=== PATIENT | female | born 1940 | race African-American/Black ===

== ENCOUNTER 2022-02-25 19:04 | Inpatient (IN) | payer OTHER ==
[~2022-02-25] VITALS: Ht 167.6 cm; Wt 134.7 kg
[2022-02-25] MEDS ORDERED: IV NS 0.9% 1,000 ML BAG IV ONE (19:30)
[2022-02-25 19:54] LABS: BASOPHILS % (AUTO) 0.2 % (0.0-2.0); HEMATOCRIT 34 % (33-45); HEMOGLOBIN 10.8 g/dL (11.5-14.8); LYMPHOCYTES # (AUTO) 0.7 K/uL (0.8-4.8); LYMPHOCYTES % (AUTO) 4.5 % (20.0-44.0); MEAN CORPUSCULAR HGB CONC 32 g/dl (31.0-36.0); MEAN CORPUSCULAR VOLUME 94 fL (82-100); MONOCYTES # (AUTO) 1.1 K/uL (0.1-1.30); MONOCYTES % (AUTO) 7.5 % (2.0-12.0); NEUTROPHILS # (AUTO) 12.7 K/uL (1.8-8.9); NEUTROPHILS % (AUTO) 87.8 % (43.0-81.0); PLATELET COUNT (AUTO) 339 K/uL (150-450); RED BLOOD CELL COUNT(AUTO) 3.59 MIL/uL (4.0-5.2); WHITE BLOOD COUNT (AUTO) 14.5 K/uL (4.3-11.0)
[2022-02-25 19:58] LABS: CALCIUM, SERUM 9.3 mg/dL (8.5-10.1); CARBON DIOXIDE 27 mmol/L (21-32); CHLORIDE 89 mmol/L (98-107); GLUCOSE 232 mg/dL (74-106); POTASSIUM 3.9 mmol/L (3.5-5.1); SODIUM SERUM 128 mmol/L (136-145); UREA NITROGEN, BLOOD 26 mg/dL (7-18)
[2022-02-25 19:59] LABS: SERUM AMMONIA 11 umol/L (11-32)
[2022-02-25 20:12] LABS: ALANINE AMINOTRANSFERASE 13 U/L (12-78); ALKALINE PHOSPHATASE 72 U/L (46-116); ASPARTATE AMINOTRANSFERASE 19 U/L (15-37); BILIRUBIN,DIRECT 0.1 mg/dL (0.0-0.2); BILIRUBIN,TOTAL 0.3 mg/dL (0.2-1.0); TOTAL PROTEIN, SERUM 8.2 g/dL (6.4-8.2)
[2022-02-25 20:13] LABS: ALCOHOL, BLOOD < 3 mg/dL (0-0)
[2022-02-25 20:14] LABS: THYROID STIMULATING HORMONE 1.714 uIU/mL (0.358-3.74)
[2022-02-25] MEDS ORDERED: VANCOMYCIN 1 GM VIAL ONE (20:30)
[2022-02-25] MEDS ORDERED: PIPERACILLIN /TAZOBACTAM 3.375 G VIAL IV ONE (20:30)
[2022-02-25] MEDS ORDERED: PIPERACILLIN /TAZOBACTAM 3.375 G in IV D5W 50 ML IV ONE (20:30)
[2022-02-25] MEDS ORDERED: VANCOMYCIN 1 GM in IV D5W 250 ML IV ONE (20:30)
[2022-02-25] MEDS ORDERED: ONDANSETRON HCL/PF 4 MG/2 ML VIAL IVP PRN (21:00)
[2022-02-25] MEDS ORDERED: Z GUARD REMEDY 4 OZ OINT TP PRN (21:00)
[2022-02-25] MEDS ORDERED: ACETAMINOPHEN 650 MG/SUPP.RECT RC PRN (21:00)
[2022-02-25 21:30] LABS: BILIRUBIN,URINE NEGATIVE (NEGATIVE); COLOR,URINE YELLOW (YELLOW); LEUKOCYTE ESTERASE ,URINE MODERATE (NEGATIVE); NITRITE, URINE NEGATIVE (NEGATIVE); PH,URINE 7.5 (5.0-8.0); PROTEIN,URINE 100 mg/dl (NEGATIVE); UGLUCOSE NEGATIVE (NEGATIVE); UROBILINOGEN,URINE 0.2 EU/dL (0.2)
[2022-02-25] MEDS ORDERED: HEPARIN INFUSION/D5W 500 ML IV ONE ×2 (21:30→21:58)
[2022-02-25 22:14] LABS: BACTERIA,URINE Moderate /HPF (None Seen); SQUAMOUS EPITHELIAL CELL,UR Few /HPF (None Seen); WBC,URINE 21-50 /HPF (0-3)
[2022-02-26] VITALS: BP 108/86
[2022-02-26] MEDS ORDERED: PIPERACILLIN /TAZOBACTAM 2.25 G VIAL IV ONE (03:12)
[2022-02-26 04:00] VITALS: BP 113/55
[2022-02-26] MEDS ORDERED: PIPERACILLIN /TAZOBACTAM 2.25 G in IV D5W 50 ML IV ONE (04:00)
[2022-02-26 07:54] LABS: BASOPHILS % (AUTO) 0.2 % (0.0-2.0); EOSINOPHILS % (AUTO) 0.4 % (0.0-6.0); HEMATOCRIT 30 % (33-45); HEMOGLOBIN 9.6 g/dL (11.5-14.8); LYMPHOCYTES # (AUTO) 1.1 K/uL (0.8-4.8); LYMPHOCYTES % (AUTO) 9.5 % (20.0-44.0); MEAN CORPUSCULAR HGB CONC 32 g/dl (31.0-36.0); MEAN CORPUSCULAR VOLUME 95 fL (82-100); MONOCYTES # (AUTO) 1.4 K/uL (0.1-1.30); NEUTROPHILS # (AUTO) 8.9 K/uL (1.8-8.9); NEUTROPHILS % (AUTO) 77.9 % (43.0-81.0); PLATELET COUNT (AUTO) 269 K/uL (150-450); RED BLOOD CELL COUNT(AUTO) 3.22 MIL/uL (4.0-5.2); WHITE BLOOD COUNT (AUTO) 11.4 K/uL (4.3-11.0)
[2022-02-26 08:00] VITALS: BP 117/43
[2022-02-26] MEDS ORDERED: VANCOMYCIN POST DIALYSIS 500MG IV PRN ×2 (08:00)
[2022-02-26] MEDS: HEPARIN INFUSION/D5W 500 ML IV PRN (08:18)
[2022-02-26] MEDS ORDERED: LINA72CA PO (08:22)
[2022-02-26] MEDS ORDERED: CLOP75TA15 PO (08:22)
[2022-02-26] MEDS ORDERED: LEVO137T24 PO (08:22)
[2022-02-26] MEDS ORDERED: ALLO100T PO (08:22)
[2022-02-26] MEDS ORDERED: ATOR10TA PO (08:22)
[2022-02-26] MEDS ORDERED: GABA-532 PO (08:22)
[2022-02-26] MEDS ORDERED: DOCU-141 PO (08:22)
[2022-02-26] MEDS ORDERED: INSU100V10 SQ (08:22)
[2022-02-26] MEDS ORDERED: SEVE800T8 PO (08:22)
[2022-02-26] MEDS ORDERED: POLY17PO4 PO (08:22)
[2022-02-26] MEDS ORDERED: SENN-261 PO (08:22)
[2022-02-26] MEDS ORDERED: METO25TA4 PO (08:22)
[2022-02-26] MEDS ORDERED: INSU100V30 IJ (08:22)
[2022-02-26 08:43] LABS: CARBON DIOXIDE 22 mmol/L (21-32); CHLORIDE 91 mmol/L (98-107); CREATININE 4.2 mg/dL (0.6-1.3); GLUCOSE 277 mg/dL (74-106); MAGNESIUM 2.2 mg/dL (1.8-2.4); POTASSIUM 3.3 mmol/L (3.5-5.1); SODIUM SERUM 129 mmol/L (136-145); UREA NITROGEN, BLOOD 30 mg/dL (7-18)
[2022-02-26] MEDS: PANTOPRAZOLE 40 MG VIAL IV SCH (08:55)
[2022-02-26 12:00] VITALS: BP 118/83
[2022-02-26 12:19] LABS: IRON, SERUM 16 ug/dl (50-175); TOTAL IRON BINDING CAPACITY 145 ug/dl (250-450)
[2022-02-26 13:15] LABS: THYROID STIMULATING HORMONE 1.036 uIU/mL (0.358-3.74)
[2022-02-26] MEDS: PIPERACILLIN /TAZOBACTAM 2.25 G in IV D5W 50 ML IV SCH ×2 (13:37→20:47)
[2022-02-26] MEDS ORDERED: EPOETIN ALFA-EPBX 10,000 UNIT/ML VIAL IV ONE (15:00)
[2022-02-26] MEDS: SOD FERRIC GLUC 125 MG in IV NS 0.9% 100 ML IV SCH (15:45)
[2022-02-26 16:00] VITALS: BP 161/60
[2022-02-26 20:00] VITALS: BP 134/93
[2022-02-26] MEDS: MUPIROCIN OINT 2% 22 GM TUBE NS SCH (20:47)
[2022-02-27] VITALS: BP 130/72
[2022-02-27] MEDS: HEPARIN INFUSION/D5W 500 ML IV PRN ×2 (01:50→22:48)
[2022-02-27] MEDS: PIPERACILLIN /TAZOBACTAM 2.25 G in IV D5W 50 ML IV SCH (05:17)
[2022-02-27 08:55] VITALS: BP 130/72
[2022-02-27 08:56] VITALS: BP 132/48
[2022-02-27] MEDS: PANTOPRAZOLE 40 MG VIAL IV SCH (09:32)
[2022-02-27] MEDS: MUPIROCIN OINT 2% 22 GM TUBE NS SCH ×2 (09:32→21:29)
[2022-02-27 12:00] VITALS: BP 149/76
[2022-02-27] MEDS ORDERED: CEFEPIME 1 GM in IV D5W 50 ML IV SCH (14:00)
[2022-02-27 16:00] VITALS: BP 121/52
[2022-02-27] MEDS: SOD FERRIC GLUC 125 MG in IV NS 0.9% 100 ML IV SCH (16:11)
[2022-02-27 20:00] VITALS: BP 124/58
[2022-02-27] MEDS: ATORVASTATIN 10 MG TABLET PO SCH (21:29)
[2022-02-27] MEDS ORDERED: HEPARIN INFUSION/D5W 500 ML IV ONE (22:44)
[2022-02-28] VITALS: BP 119/61
[2022-02-28 04:00] VITALS: BP 121/68
[2022-02-28 08:00] VITALS: BP 130/52
[2022-02-28] MEDS: LEVOTHYROXINE SODIUM 50 MCG TABLET PO SCH (08:21)
[2022-02-28] MEDS: PANTOPRAZOLE 40 MG VIAL IV SCH (08:59)
[2022-02-28] MEDS ORDERED: CLOPIDOGREL BISULFATE 75 MG TABLET PO SCH (09:00)
[2022-02-28] MEDS: POLYETHYLENE GLYCOL 3350 17 GM POWD.PACK PO SCH (09:00)
[2022-02-28] MEDS: EPOETIN ALFA-EPBX 10,000 UNIT/ML VIAL IV ONE ×2 (09:00→09:17)
[2022-02-28] MEDS: SENNOSIDES 8.6 MG TABLET PO SCH ×2 (09:00→17:00)
[2022-02-28] MEDS: ALLOPURINOL 100 MG TABLET PO SCH (09:00)
[2022-02-28] MEDS: METOPROLOL SUCCINATE 25 MG TAB.SR.24H PO SCH (09:01)
[2022-02-28] MEDS: GABAPENTIN 100 MG CAPSULE PO SCH ×3 (09:30→17:14)
[2022-02-28] MEDS: DOCUSATE SODIUM 100 MG CAPSULE PO SCH ×2 (09:30→17:14)
[2022-02-28] MEDS: MUPIROCIN OINT 2% 22 GM TUBE NS SCH ×2 (11:27→21:25)
[2022-02-28 12:00] VITALS: BP 106/42
[2022-02-28 12:15] LABS: BASOPHILS # (AUTO) 0.1 K/uL (0.0-0.2); BASOPHILS % (AUTO) 0.5 % (0.0-2.0); EOSINOPHILS % (AUTO) 1.6 % (0.0-6.0); HEMATOCRIT 25 % (33-45); HEMOGLOBIN 8.2 g/dL (11.5-14.8); LYMPHOCYTES # (AUTO) 0.9 K/uL (0.8-4.8); LYMPHOCYTES % (AUTO) 6.9 % (20.0-44.0); MEAN CORPUSCULAR HGB CONC 32 g/dl (31.0-36.0); MEAN CORPUSCULAR VOLUME 93 fL (82-100); MONOCYTES # (AUTO) 1.5 K/uL (0.1-1.30); MONOCYTES % (AUTO) 11.8 % (2.0-12.0); NEUTROPHILS % (AUTO) 79.2 % (43.0-81.0); PLATELET COUNT (AUTO) 238 K/uL (150-450); RED BLOOD CELL COUNT(AUTO) 2.74 MIL/uL (4.0-5.2); WHITE BLOOD COUNT (AUTO) 12.6 K/uL (4.3-11.0)
[2022-02-28 12:23] LABS: CALCIUM, SERUM 8.8 mg/dL (8.5-10.1); CARBON DIOXIDE 28 mmol/L (21-32); CHLORIDE 95 mmol/L (98-107); CREATININE 4.8 mg/dL (0.6-1.3); GLUCOSE 313 mg/dL (74-106); SODIUM SERUM 132 mmol/L (136-145); UREA NITROGEN, BLOOD 32 mg/dL (7-18)
[2022-02-28 12:29] LABS: ALANINE AMINOTRANSFERASE 16 U/L (12-78); ALBUMIN 2.1 g/dL (3.4-5.0); ALKALINE PHOSPHATASE 61 U/L (46-116); ASPARTATE AMINOTRANSFERASE 13 U/L (15-37); BILIRUBIN,TOTAL 0.2 mg/dL (0.2-1.0); MAGNESIUM 2.1 mg/dL (1.8-2.4); PHOSPHORUS 4.1 mg/dL (2.5-4.9)
[2022-02-28] MEDS: LEVOFLOXACIN (250MG) 250 MG TABLET PO SCH (12:35)
[2022-02-28] MEDS: SOD FERRIC GLUC 125 MG in IV NS 0.9% 100 ML IV SCH (14:14)
[2022-02-28 16:00] VITALS: BP 174/66
[2022-02-28] MEDS: CLOPIDOGREL BISULFATE 75 MG TABLET PO SCH (17:14)
[2022-02-28 20:00] VITALS: BP 142/42
[2022-02-28] MEDS ORDERED: diphenhydrAMINE HCL 25 MG CAPSULE PO ONE (20:30)
[2022-02-28] MEDS: ACETAMINOPHEN 325 MG TABLET PO PRN (20:45)
[2022-02-28] MEDS: ATORVASTATIN 10 MG TABLET PO SCH (21:52)
[2022-03-01] VITALS: BP 148/45
[2022-03-01 04:00] VITALS: BP 124/40
[2022-03-01 06:39] LABS: BASOPHILS % (AUTO) 0.3 % (0.0-2.0); EOSINOPHILS % (AUTO) 2.5 % (0.0-6.0); HEMATOCRIT 26 % (33-45); HEMOGLOBIN 8.3 g/dL (11.5-14.8); LYMPHOCYTES # (AUTO) 1.1 K/uL (0.8-4.8); LYMPHOCYTES % (AUTO) 8.3 % (20.0-44.0); MEAN CORPUSCULAR HGB CONC 32 g/dl (31.0-36.0); MEAN CORPUSCULAR VOLUME 93 fL (82-100); MONOCYTES # (AUTO) 1.5 K/uL (0.1-1.30); NEUTROPHILS # (AUTO) 10.2 K/uL (1.8-8.9); NEUTROPHILS % (AUTO) 77.9 % (43.0-81.0); PLATELET COUNT (AUTO) 267 K/uL (150-450); RED BLOOD CELL COUNT(AUTO) 2.78 MIL/uL (4.0-5.2); WHITE BLOOD COUNT (AUTO) 13.2 K/uL (4.3-11.0)
[2022-03-01 06:57] LABS: CALCIUM, SERUM 9.1 mg/dL (8.5-10.1); CARBON DIOXIDE 27 mmol/L (21-32); CHLORIDE 96 mmol/L (98-107); CREATININE 5.1 mg/dL (0.6-1.3); GLUCOSE 180 mg/dL (74-106); PHOSPHORUS 4.3 mg/dL (2.5-4.9); POTASSIUM 3.2 mmol/L (3.5-5.1); SODIUM SERUM 134 mmol/L (136-145); UREA NITROGEN, BLOOD 38 mg/dL (7-18)
[2022-03-01 08:00] VITALS: BP 173/57
[2022-03-01] MEDS: LEVOTHYROXINE SODIUM 50 MCG TABLET PO SCH (08:25)
[2022-03-01] MEDS: CLOPIDOGREL BISULFATE 75 MG TABLET PO SCH (08:25)
[2022-03-01] MEDS: PANTOPRAZOLE 40 MG/PACK PACK PO SCH (08:25)
[2022-03-01] MEDS: SENNOSIDES 8.6 MG TABLET PO SCH ×2 (08:25→17:04)
[2022-03-01] MEDS: DOCUSATE SODIUM 100 MG CAPSULE PO SCH ×2 (08:25→17:03)
[2022-03-01] MEDS: GABAPENTIN 100 MG CAPSULE PO SCH ×3 (08:26→17:05)
[2022-03-01] MEDS: POLYETHYLENE GLYCOL 3350 17 GM POWD.PACK PO SCH (08:26)
[2022-03-01] MEDS: METOPROLOL SUCCINATE 25 MG TAB.SR.24H PO SCH (08:26)
[2022-03-01] MEDS: ALLOPURINOL 100 MG TABLET PO SCH (08:26)
[2022-03-01] MEDS: MUPIROCIN OINT 2% 22 GM TUBE NS SCH ×2 (08:27→21:31)
[2022-03-01] MEDS ORDERED: NITROGLYCERIN 0.4 MG/TAB BOTTLE ONE (11:18)
[2022-03-01] MEDS ORDERED: CT SWABBABLE VALVE TRANS SET 1 EA INFUS.SET MC ONE (11:18)
[2022-03-01] MEDS ORDERED: METOPROLOL TARTRATE INJ 5 MG/5 ML AMPUL ONE ×2 (11:18→11:45)
[2022-03-01] MEDS ORDERED: IV NS 0.9% 250 ML IV ONE (11:18)
[2022-03-01] MEDS ORDERED: IOHEXOL-350 100 ML VIAL IV ONE (11:18)
[2022-03-01] MEDS ORDERED: NITROGLYCERIN 0.4 MG/TAB BOTTLE SL PRN (11:30)
[2022-03-01] MEDS: METOPROLOL TARTRATE INJ 5 MG/5 ML AMPUL IVP PRN ×3 (11:35→11:45)
[2022-03-01] MEDS ORDERED: SOD FERRIC GLUC 62.5 MG/5 ML AMPUL IV ONE (15:00)
[2022-03-01] MEDS: SOD FERRIC GLUC 125 MG in IV NS 0.9% 100 ML IV SCH (15:33)
[2022-03-01 16:00] VITALS: BP 171/61
[2022-03-01 20:00] VITALS: BP 110/88
[2022-03-01] MEDS: ATORVASTATIN 10 MG TABLET PO SCH (21:31)
[2022-03-02] VITALS: BP 124/59
[2022-03-02] MEDS ORDERED: diphenhydrAMINE HCL 25 MG CAPSULE PO ONE (01:00)
[2022-03-02] MEDS ORDERED: GUAIFENESIN LA 600 MG TABLET.SA PO PRN (01:00)
[2022-03-02] MEDS: ACETAMINOPHEN 325 MG TABLET PO PRN (01:30)
[2022-03-02] MEDS ORDERED: TRAZODONE 50 MG TABLET PO PRN ×2 (02:30→22:00)
[2022-03-02 04:00] VITALS: BP 146/78
[2022-03-02 08:00] VITALS: BP 171/54
[2022-03-02] MEDS: CLOPIDOGREL BISULFATE 75 MG TABLET PO SCH (08:23)
[2022-03-02] MEDS: ALLOPURINOL 100 MG TABLET PO SCH (08:23)
[2022-03-02] MEDS: DOCUSATE SODIUM 100 MG CAPSULE PO SCH ×2 (08:23→17:13)
[2022-03-02] MEDS: GABAPENTIN 100 MG CAPSULE PO SCH ×3 (08:23→17:14)
[2022-03-02] MEDS: PANTOPRAZOLE 40 MG/PACK PACK PO SCH (08:23)
[2022-03-02] MEDS: LEVOTHYROXINE SODIUM 50 MCG TABLET PO SCH (08:23)
[2022-03-02] MEDS: MUPIROCIN OINT 2% 22 GM TUBE NS SCH (08:24)
[2022-03-02] MEDS: POLYETHYLENE GLYCOL 3350 17 GM POWD.PACK PO SCH (08:24)
[2022-03-02] MEDS: SENNOSIDES 8.6 MG TABLET PO SCH ×2 (08:24→17:13)
[2022-03-02] MEDS: METOPROLOL SUCCINATE 25 MG TAB.SR.24H PO SCH (08:25)
[2022-03-02] MEDS ORDERED: METOPROLOL SUCCINATE 25 MG TAB.SR.24H PO SCH (09:00)
[2022-03-02] MEDS: hydrALAZINE HCL 50 MG TABLET PO SCH ×3 (09:53→17:14)
[2022-03-02] MEDS: ISOSORBIDE DINITRATE (20MG) 20 MG TABLET PO SCH ×2 (09:54→17:14)
[2022-03-02 12:00] VITALS: BP 126/62
[2022-03-02] MEDS: LEVOFLOXACIN (250MG) 250 MG TABLET PO SCH (13:13)
[2022-03-02] MEDS: SOD FERRIC GLUC 125 MG in IV NS 0.9% 100 ML IV SCH (14:00)
[2022-03-02 16:00] VITALS: BP 151/54
[2022-03-02 17:14] VITALS: BP 151/54
== END 2022-03-02 19:30 | DRG 871 ==
LOC: ER 19:05 → TELE1 21:50 → TRANSITION 02-26 01:09 → TELE1 02-26 01:10
PROVIDERS: ADMIT Nurse Practitioner Family
PROC: 5A1D70Z Performance of Urinary Filtration, Intermittent, Less than 6 Hours Per Day (ICD-10-PCS; 2022-02-26)
PROC: 05HB33Z Insertion of Infusion Device into Right Basilic Vein, Percutaneous Approach (ICD-10-PCS; principal; 2022-02-27)
DX: A41.1 Sepsis due to other specified staphylococcus (principal); G92.8 Other toxic encephalopathy; I21.4 Non-ST elevation (NSTEMI) myocardial infarction; N18.6 End stage renal disease; J18.9 Pneumonia, unspecified organism; R65.21 Severe sepsis with septic shock; N39.0 Urinary tract infection, site not specified; E87.1 Hypo-osmolality and hyponatremia; I13.2 Hypertensive heart and chronic kidney disease with heart failure and with stage 5 chronic kidney disease, or end stage renal disease; E87.2 Acidosis; Z68.42 Body mass index [BMI] 45.0-49.9, adult; J96.10 Chronic respiratory failure, unspecified whether with hypoxia or hypercapnia; E11.42 Type 2 diabetes mellitus with diabetic polyneuropathy; E11.22 Type 2 diabetes mellitus with diabetic chronic kidney disease; Z20.822 Contact with and (suspected) exposure to COVID-19; E11.65 Type 2 diabetes mellitus with hyperglycemia; I25.10 Atherosclerotic heart disease of native coronary artery without angina pectoris; Z99.2 Dependence on renal dialysis; G47.33 Obstructive sleep apnea (adult) (pediatric); E78.5 Hyperlipidemia, unspecified; E66.01 Morbid (severe) obesity due to excess calories; B96.89 Other specified bacterial agents as the cause of diseases classified elsewhere; Z74.01 Bed confinement status; Y95 Nosocomial condition; D63.8 Anemia in other chronic diseases classified elsewhere; B96.4 Proteus (mirabilis) (morganii) as the cause of diseases classified elsewhere; I50.9 Heart failure, unspecified; Z86.73 Personal history of transient ischemic attack (TIA), and cerebral infarction without residual deficits; E03.9 Hypothyroidism, unspecified; J32.0 Chronic maxillary sinusitis; G93.89 Other specified disorders of brain; E61.1 Iron deficiency; M10.9 Gout, unspecified
CPT/HCPCS: 36410; 36415; 70450-TC; 71045-TC; 75574; 80048-TC; 80053-TC; 80076-TC; 80202-TC; 81001; 82140-TC; 82728-TC; 82962-TC; 83540-TC; 83605-TC; 83735-TC; 84100-TC; 84443-TC; 84484-TC; 85025-TC; 85730-TC; 86706; 87040-TC; 87081-TC; 87086-TC; 87186-TC; 87340; 90935-TC; 92526; 92611-TC; 93307-TC; 94799-TC; C9113; C9803; G0378; G0480; J0692; J0885; J1644; J2543; J2916; J3370; J3490; J7030; J7050; J7060; Q0163; Q9967

== ENCOUNTER 2022-11-16 15:58 | Inpatient (IN) | payer OTHER ==
[~2022-11-16] VITALS: Ht 160 cm; Wt 126.6 kg
[~2022-11-16 15:58] MED LIST: ALLO100T PO; ATOR10TA PO; CLOP75TA15 PO; DOCU-141 PO; GABA-532 PO; INSU100V10 SQ; INSU100V30 IJ; LEVO137T24 PO; LINA72CA PO; METO25TA4 PO; POLY17PO4 PO; SENN-261 PO; SEVE800T8 PO
--- NOTE | 2022-11-16 16:10 | NUR ---
BIBA RA60 Fm [employer] "IFT for partial occlussion Right Femoral artery BS-217. PLACED IN BED, AAOX3, BREATHING EVEN AND UNLABORED SATURATING AT 94%RA.
[2022-11-16] MEDS ORDERED: ASCO500T10 PO (16:24)
--- NOTE | 2022-11-16 16:32 | NUR ---
MOVE SHEET SUBMITTED.
--- NOTE | 2022-11-16 16:32 | NUR ---
BLOOD DRAWN AND SENT TO LAB
[2022-11-16 16:35] LABS: BASOPHILS # (AUTO) 0.1 K/uL (0.0-0.2); BASOPHILS % (AUTO) 0.9 % (0.0-2.0); EOSINOPHILS % (AUTO) 3.1 % (0.0-6.0); HEMATOCRIT 30 % (33-45); HEMOGLOBIN 9.9 g/dL (11.5-14.8); LYMPHOCYTES # (AUTO) 1.3 K/uL (0.8-4.8); LYMPHOCYTES % (AUTO) 14.4 % (20.0-44.0); MEAN CORPUSCULAR HGB CONC 33 g/dl (31.0-36.0); MEAN CORPUSCULAR VOLUME 94 fL (82-100); MONOCYTES # (AUTO) 1.1 K/uL (0.1-1.30); MONOCYTES % (AUTO) 12.4 % (2.0-12.0); NEUTROPHILS # (AUTO) 6.3 K/uL (1.8-8.9); NEUTROPHILS % (AUTO) 69.2 % (43.0-81.0); PLATELET COUNT (AUTO) 322 K/uL (150-450); WHITE BLOOD COUNT (AUTO) 9.2 K/uL (4.3-11.0)
--- NOTE | 2022-11-16 16:37 | NUR ---
SWAB FOR COVID19 SENT TO LAB
[2022-11-16] MEDS ORDERED: HEPA50007 SQ (16:53)
[2022-11-16] MEDS ORDERED: ACET-2605 PO (16:53)
[2022-11-16] MEDS ORDERED: INSU100V11 SQ (16:53)
[2022-11-16] MEDS ORDERED: FAMO20TA8 PO (16:53)
[2022-11-16] MEDS ORDERED: LIDO30AD10 TP (16:53)
[2022-11-16] MEDS ORDERED: NA P133E RC (16:53)
[2022-11-16] MEDS ORDERED: MAGN400O6 PO (16:53)
[2022-11-16] MEDS ORDERED: AMIN30LI2 PO (16:53)
[2022-11-16] MEDS ORDERED: INSU100V7 SQ (16:53)
[2022-11-16] MEDS ORDERED: NORT10CA PO (16:53)
[2022-11-16] MEDS ORDERED: ZINC1CAP2 PO (16:53)
[2022-11-16] MEDS ORDERED: ASPI-1169 PO (16:53)
[2022-11-16] MEDS ORDERED: ACET325T53 PO ×2 (16:53)
[2022-11-16] MEDS ORDERED: ISOS40TA19 PO (16:53)
[2022-11-16] MEDS ORDERED: METO50TA16 PO (16:53)
[2022-11-16] MEDS ORDERED: HYDR-4303 PO (16:53)
[2022-11-16] MEDS ORDERED: FOLI0.8T2 PO (16:53)
[2022-11-16] MEDS ORDERED: FERR325T23 PO (16:53)
[2022-11-16] MEDS ORDERED: BISA10SU61 RC (16:53)
[2022-11-16] MEDS ORDERED: HYDR-4076 PO (16:53)
[2022-11-16] MEDS ORDERED: LEVE500T9 PO (16:53)
[2022-11-16 16:58] LABS: CALCIUM, SERUM 9.5 mg/dL (8.5-10.1); CARBON DIOXIDE 30 mmol/L (21-32); CHLORIDE 92 mmol/L (98-107); GLUCOSE 140 mg/dL (74-106); POTASSIUM 5.6 mmol/L (3.5-5.1); SODIUM SERUM 128 mmol/L (136-145); UREA NITROGEN, BLOOD 29 mg/dL (7-18)
[2022-11-16 17:03] LABS: ALANINE AMINOTRANSFERASE 12 U/L (12-78); ALBUMIN 2.6 g/dL (3.4-5.0); ALKALINE PHOSPHATASE 61 U/L (46-116); ASPARTATE AMINOTRANSFERASE 15 U/L (15-37); BILIRUBIN,DIRECT 0.1 mg/dL (0.0-0.2); BILIRUBIN,TOTAL 0.2 mg/dL (0.2-1.0); TOTAL PROTEIN, SERUM 7.7 g/dL (6.4-8.2)
[2022-11-16] MEDS ORDERED: ACETAMINOPHEN 325 MG TABLET PO PRN ×2 (18:30)
[2022-11-16] MEDS ORDERED: MAGNESIUM HYDROXIDE 30 ML UDC PO PRN ×2 (18:30)
[2022-11-16] MEDS ORDERED: Z GUARD REMEDY 4 OZ OINT TP PRN (18:30)
[2022-11-16] MEDS ORDERED: LIDOCAINE 5% (PATCH) 1 EA PATCH TP PRN (18:30)
[2022-11-16] MEDS ORDERED: MAG HYDROX/AL HYDROX/SIMETH 30 ML UDC PO PRN (18:30)
[2022-11-16] MEDS ORDERED: ZOLPIDEM TARTRATE 5 MG TABLET PO PRN (18:30)
[2022-11-16] MEDS ORDERED: ONDANSETRON HCL/PF 4 MG/2 ML VIAL IVP PRN (18:30)
[2022-11-16] MEDS ORDERED: BISACODYL SUPP (10 MG) 10 MG/SUPP.RECT SUPP.RECT RC PRN (18:30)
[2022-11-16] MEDS ORDERED: ACETAMINOPHEN ES 500 MG TABLET PO PRN (18:30)
[2022-11-16] MEDS ORDERED: DEXTROSE 50%-WATER 50 ML DISP.SYRIN IV PRN (18:30)
[2022-11-16] MEDS ORDERED: NA PHOS,M-B/NA PHOS,DI-BA 1 EA ENEMA RC PRN (18:30)
--- NOTE | 2022-11-16 20:40 | NUR ---
fax [facility]s [phone]
--- NOTE | 2022-11-16 21:45 | NUR ---
[facility]ET [facility] CLINIC[facility] RE-FAXED.
[2022-11-16] MEDS ORDERED: LORAZEPAM INJ 2 MG/ML VIAL ONE (22:46)
[2022-11-16] MEDS ORDERED: LORAZEPAM INJ 2 MG/ML VIAL IV ONE (23:00)
--- NOTE | 2022-11-17 02:20 | NUR ---
auth number [id number]
--- NOTE | 2022-11-17 02:23 | NUR ---
[facility]
--- NOTE | 2022-11-17 02:44 | NUR ---
report given to eccilio bryant for chetna
[2022-11-17] MEDS: BLOOD SUGAR DIAGNOSTIC 1 EACH STRIP VI SCH ×5 (03:35→21:20)
[2022-11-17] MEDS: INSULIN GLARGINE, 100 UNIT/ML CARTRIDGE SQ SCH ×2 (03:48→21:20)
[2022-11-17] MEDS: NORTRIPTYLINE HCL 10 MG CAPSULE PO SCH ×2 (03:49→21:16)
[2022-11-17] MEDS: SENNOSIDES 8.6 MG TABLET PO SCH ×2 (03:49→21:16)
[2022-11-17] MEDS: ATORVASTATIN 10 MG TABLET PO SCH ×2 (03:49→21:16)
--- NOTE | 2022-11-17 03:50 | NUR ---
RN NOTE PT ARRIVED IN THE UNIT @ 0300 AND BY THAT TIME, ALL HER NIGHT MEDS WERE NOT GIVEN SCHEDULED INCLUDING ACCU CHECK AND LANTUS. PT'S BS WAS 96, SO LANTUS WAS NOT GIVEN. WILL ENDORSE TO AM SHIFT.
--- NOTE | 2022-11-17 03:52 | NUR ---
BASEBALL GLOVE STUFFERDECK ENGINEER NOTE RECEIVED PT FROM [facility] [place] WITH THE ADMITTING DX OF SEVERE PAD WITH RLE ARTERIAL OCCLUSION. PT ON NC @ 2LPM, TOLERATING WELL, O2 SAT AT 98% UPON ARRIVAL IN THE UNIT. NO S/SX OF ACUTE RESPI DISTRESS NOTED AT THIS TIME. NO SOB. BREATHING IS EVEN AND UNLABORED. SET UP AND CHARGER READS SR WITH HR IN THE 80s. PT IS AWAKE, A/O X 0, CONFUSED AT TIMES. IV ACCESS ON RFA, #20g, PATENT, INTACT AND SL. PT NOTED TO HAVE WOUND ON L ANKLE AND SWELLING ON L LOWER LEG. WOUND CONSULT ORDERED. VS STABLE AT THIS TIME. ALL SAFETY MEASURES IN PLACE: BED LOCKED IN LOWEST POSITION, BED ALARM ON, HOB ELEVATED, SR UP X 3, CALL LIGHT WITHIN REACH. WILL CONTINUE TO MONITOR.
[2022-11-17 04:00] VITALS: BP 152/47
--- NOTE | 2022-11-17 07:03 | NUR ---
RN CLOSING NOTE PT IN BED, AND COMFORTABLY RESTING. NO SIGNIFICANT CHANGE. WILL ENDORSE TO AM SHIFT NURSE FOR WINSOME.
--- NOTE | 2022-11-17 07:46 | NUR ---
ROD GREASER OPENING NOTES PATIENT RECEIVED IN BED ASLEEP. ON NC 2L TOLERATING WELL WITH NO S/S OF RESPIRATORY DISTRESS OR SOB. IV ACCESS RFA 20G SL AND LAV FISTULA. SAFETY MEASURES IN PLACE WITH BED IN LOWEST LOCKED POSITION, SIDE RAILS UP X3, BEDSIDE TABLE AND CALL LIGHT WITHIN REACH. WILL CONTINUE TO MONITOR.
[2022-11-17 08:00] VITALS: BP 127/74
--- NOTE | 2022-11-17 08:46 | NUR ---
WOUND CARE CONSULT: PT PRESENTS WITH LEFT LOWER LEG AND FOOT EDEMA, REDNESS AND OPEN WOUND TO LATERAL LOWER LEG WITH HARDWARE EXPOSURE, PRESENT ON ADMISSION. DEFER TO DPM FOR POSSIBLE ORTHO CONSULT. DR KERR NOTIFIED OF SURGICAL CONSULT FOR WOUND. DISCUSSED SKIN PROTECTION WITH NURSING STAFF. FIRST STEP LOW AIRLOSS MATTRESS IS ON ORDER. MD IN AGREEMENT WITH PLAN OF CARE.
[2022-11-17 08:47] LABS: BASOPHILS % (AUTO) 0.4 % (0.0-2.0); EOSINOPHILS % (AUTO) 3.6 % (0.0-6.0); HEMATOCRIT 32 % (33-45); HEMOGLOBIN 10.2 g/dL (11.5-14.8); LYMPHOCYTES # (AUTO) 1.6 K/uL (0.8-4.8); LYMPHOCYTES % (AUTO) 18.4 % (20.0-44.0); MEAN CORPUSCULAR HGB CONC 32 g/dl (31.0-36.0); MEAN CORPUSCULAR VOLUME 96 fL (82-100); MONOCYTES # (AUTO) 1.1 K/uL (0.1-1.30); NEUTROPHILS # (AUTO) 5.6 K/uL (1.8-8.9); NEUTROPHILS % (AUTO) 64.6 % (43.0-81.0); PLATELET COUNT (AUTO) 336 K/uL (150-450); RED BLOOD CELL COUNT(AUTO) 3.32 MIL/uL (4.0-5.2); WHITE BLOOD COUNT (AUTO) 8.7 K/uL (4.3-11.0)
[2022-11-17 08:56] LABS: CALCIUM, SERUM 9.8 mg/dL (8.5-10.1); CARBON DIOXIDE 25 mmol/L (21-32); CHLORIDE 90 mmol/L (98-107); CREATININE 4.2 mg/dL (0.6-1.3); GLUCOSE 96 mg/dL (74-106); MAGNESIUM 2.4 mg/dL (1.8-2.4); POTASSIUM 5.1 mmol/L (3.5-5.1); SODIUM SERUM 125 mmol/L (136-145); UREA NITROGEN, BLOOD 35 mg/dL (7-18)
[2022-11-17] MEDS: ISOSORBIDE DINITRATE (20MG) 20 MG TABLET PO SCH ×2 (10:13→18:18)
[2022-11-17] MEDS: ACETAMINOPHEN 325 MG TABLET PO SCH (10:13)
[2022-11-17] MEDS: FERROUS SULFATE (325 MG) 325 MG/TAB TABLET PO SCH (10:13)
[2022-11-17] MEDS: ZINC SULFATE 220 MG CAPSULE PO SCH (10:14)
[2022-11-17] MEDS: LEVETIRACETAM (250 MG) 250 MG TABLET PO SCH ×2 (10:14→20:37)
[2022-11-17] MEDS: ASCORBIC ACID 500 MG TABLET PO SCH (10:14)
[2022-11-17] MEDS: ASPIRIN 81 MG TAB.CHEW PO SCH (10:14)
[2022-11-17] MEDS: SEVELAMER CARBONATE 800 MG TABLET PO SCH ×2 (10:14→18:17)
[2022-11-17] MEDS: LEVOTHYROXINE SODIUM 50 MCG TABLET PO SCH (10:15)
[2022-11-17] MEDS: ALLOPURINOL 100 MG TABLET PO SCH (10:15)
[2022-11-17] MEDS: hydrALAZINE HCL 25 MG TABLET PO SCH ×3 (10:15→18:17)
[2022-11-17] MEDS: FAMOTIDINE (20 MG) 20 MG TABLET PO SCH (10:15)
[2022-11-17] MEDS: VIT B CMPLX 3/FA/VIT C/BIOTIN 1 TAB TABLET PO SCH (10:16)
[2022-11-17] MEDS: GABAPENTIN 100 MG CAPSULE PO SCH ×3 (10:16→18:17)
[2022-11-17] MEDS: METOPROLOL TARTRATE 50 MG TABLET PO SCH ×2 (10:16→20:38)
[2022-11-17] MEDS: DOCUSATE SODIUM 100 MG CAPSULE PO SCH ×2 (10:17→18:17)
[2022-11-17] MEDS: HEPARIN SODIUM, PORCINE 5000 UNITS/1 ML VIAL SQ SCH ×2 (10:20→20:39)
[2022-11-17] MEDS: *INSULIN REGULAR(HUMULIN R)HUM 100 UNIT/ML VIAL SQ PRN (10:37)
[2022-11-17] MEDS: PROSOURCE / PROSTAT (PYXIS) 30 ML UDC PO SCH (10:52)
[2022-11-17 12:00] VITALS: BP 117/71
[2022-11-17] MEDS: DAKINS QUARTER STRENGTH (0.125%) 480 ML BOTTLE TOP SCH (12:00)
--- NOTE | 2022-11-17 12:25 | NUR ---
PATIENT HAS NEW ONSET CONFUSION LAST TWO WEEKS KERZUMA DO NOTIFIED. CT WITHOUT CONTRAST AND AMMONIA ORDERED.
[2022-11-17] MEDS ORDERED: ALBUMIN 25% 25 GM in PREMIX 1 EA IV PRN (13:00)
[2022-11-17 16:00] VITALS: BP 124/62
[2022-11-17] MEDS: INSULIN REGULAR, HUMAN 100 UNIT/ML 3 ML VIAL SQ PRN ×2 (16:23→18:34)
--- NOTE | 2022-11-17 17:30 | NUR ---
CONSENT FOR CTA AND HEMODIALYSIS IN CHART
--- NOTE | 2022-11-17 19:30 | NUR ---
PATIENT RELATIONS COORDINATOR OPENING NOTE RECEIVED PATIENT IN BED, AWAKE, ALERT AND ORIENTED X2 WITH PERIOD OF CONFUSION. ABLE TO MAKE NEEDS KNOWN. AFEBRILE AND NOT IN ANY FORM OF ACUTE DISTRESS. ON O2 INHALATION VIA NASAL CANNULA AT 2LPM. WITH IV ACCESS ON RFA 20G-SL. WITH LEFT AV FISTULA, DRESSING DRY AND INTACT. S/P DIALYSIS THIS MORNING WITH 2L OUTPUT PER REPORT. SAFETY MEASURES IN PLACE. KEPT BED IN LOCKED AND IN LOW POSITION. SIDE RAILS UP X3. ADVISED TO USE THE CALL LIGHT WHEN IN NEED OF ASSISTANCE.
--- NOTE | 2022-11-17 19:50 | NUR ---
LABORER BITUMINOUS PAVING CLOSING NOTES PATIENT IN BED ALERT AND ORIENTED X1-2. ON NC 2L TOLERATING WELL. NEEDS REMINDERS TO KEEP NC ON. BREATHING EVEN AND UNLABORED WITH NO S/S OF RESPIRATORY DISTRESS OR SOB. ON TELE MONITOR READING SR 80'S. IV ACCESS RFA 20G SL AND LAV FISTULA. ALL DUE MEDS GIVEN AND WOUND CARE PROVIDED FOR LACERATION/WOUND ON L ANKLE. SAFETY MEASURES IN PLACE WITH BED IN LOWEST LOCKED POSITION, SIDE RAILS UP X3, BEDSIDE TABLE AND CALL LIGHT WITHIN REACH. WILL ENDORSE TO ONCOMING SHIFT FOR WINSOME.
[2022-11-17 20:00] VITALS: BP 125/84
[2022-11-18] VITALS: BP 142/67
[2022-11-18 04:00] VITALS: BP 143/90
--- NOTE | 2022-11-18 06:28 | NUR ---
FOREIGN FOOD COOK SPECIALTY CLOSING NOTE PATIENT IN BED, ASLEEP BUT EASY TO AROUSE AND RESPONDS TO VERBAL OR TACTILE STIMULI. ABLE TO MAKE NEEDS KNOWN. AFEBRILE AND NOT IN ANY FORM OF ACUTE DISTRESS. ON O2 INHALATION VIA NASAL CANNULA AT 2LPM. ON TELE MONITORING WITH CURRENT READING OF SR 82. WITH IV ACCESS ON RFA 20G-SL. WITH LEFT AV FISTULA, DRESSING DRY AND INTACT. MONITORED FOR ANY S/SX. OF HYPO/HYPERGLYCEMIA. MEDICATED ORDERED. WOUND CARE DONE DURING THE SHIFT. TURNED AND REPOSITIONED TOLERATED FOR PROPER CIRCULATION AND COMFORT. SAFETY MEASURES IN PLACE. KEPT BED IN LOCKED AND IN LOW POSITION. SIDE RAILS UP X3. ADVISED TO USE THE CALL LIGHT WHEN IN NEED OF ASSISTANCE. ALL NURSING NEEDS ATTENDED. ENDORSED TO INCOMING SHIFT FOR CONTINUITY OF CARE.
[2022-11-18] MEDS: BLOOD SUGAR DIAGNOSTIC 1 EACH STRIP VI SCH ×4 (06:32→22:05)
[2022-11-18 06:55] LABS: BASOPHILS % (AUTO) 0.5 % (0.0-2.0); EOSINOPHILS % (AUTO) 3.2 % (0.0-6.0); HEMATOCRIT 29 % (33-45); HEMOGLOBIN 9.7 g/dL (11.5-14.8); LYMPHOCYTES # (AUTO) 1.3 K/uL (0.8-4.8); LYMPHOCYTES % (AUTO) 13.4 % (20.0-44.0); MEAN CORPUSCULAR HGB CONC 33 g/dl (31.0-36.0); MEAN CORPUSCULAR VOLUME 94 fL (82-100); MONOCYTES # (AUTO) 1.2 K/uL (0.1-1.30); MONOCYTES % (AUTO) 11.7 % (2.0-12.0); NEUTROPHILS # (AUTO) 7.1 K/uL (1.8-8.9); NEUTROPHILS % (AUTO) 71.2 % (43.0-81.0); PLATELET COUNT (AUTO) 348 K/uL (150-450)
[2022-11-18 07:28] LABS: CALCIUM, SERUM 9.6 mg/dL (8.5-10.1); CARBON DIOXIDE 26 mmol/L (21-32); CHLORIDE 96 mmol/L (98-107); CREATININE 3.4 mg/dL (0.6-1.3); GLUCOSE 100 mg/dL (74-106); MAGNESIUM 2.2 mg/dL (1.8-2.4); PHOSPHORUS 4.6 mg/dL (2.5-4.9); POTASSIUM 4.4 mmol/L (3.5-5.1); SODIUM SERUM 132 mmol/L (136-145); UREA NITROGEN, BLOOD 26 mg/dL (7-18)
--- NOTE | 2022-11-18 07:40 | NUR ---
AREA SAFETY MANAGER OPENING NOTE (MONSERRAT DAYSHIFT) PATIENT RECEIVED IN BED ASLEEP. ON NC 2L TOLERATING WELL WITH NO S/S OF RESPIRATORY DISTRESS OR SOB. IV ACCESS RFA 20G SL AND LEFT AV FISTULA. SAFETY MEASURES IN PLACE WITH BED IN LOWEST LOCKED POSITION, SIDE RAILS UP X3, BEDSIDE TABLE AND CALL LIGHT WITHIN REACH. BED ALARM ON. WILL CONTINUE TO MONITOR AND CARE FOR PATIENT PER MD POC.
[2022-11-18] MEDS: FAMOTIDINE (20 MG) 20 MG TABLET PO SCH (07:57)
[2022-11-18] MEDS: LEVOTHYROXINE SODIUM 50 MCG TABLET PO SCH (07:57)
[2022-11-18] MEDS: SEVELAMER CARBONATE 800 MG TABLET PO SCH ×2 (07:57→17:13)
[2022-11-18 08:00] VITALS: BP 140/60
[2022-11-18] MEDS: hydrALAZINE HCL 25 MG TABLET PO SCH ×3 (09:27→17:13)
[2022-11-18] MEDS: ASPIRIN 81 MG TAB.CHEW PO SCH (09:28)
[2022-11-18] MEDS: ISOSORBIDE DINITRATE (20MG) 20 MG TABLET PO SCH ×2 (09:28→17:12)
[2022-11-18] MEDS: FERROUS SULFATE (325 MG) 325 MG/TAB TABLET PO SCH (09:28)
[2022-11-18] MEDS: DOCUSATE SODIUM 100 MG CAPSULE PO SCH ×2 (09:28→17:11)
[2022-11-18] MEDS: LEVETIRACETAM (250 MG) 250 MG TABLET PO SCH ×2 (09:31→21:00)
[2022-11-18] MEDS: METOPROLOL TARTRATE 50 MG TABLET PO SCH ×2 (09:31→21:00)
[2022-11-18] MEDS: ACETAMINOPHEN 325 MG TABLET PO SCH (09:32)
[2022-11-18] MEDS: GABAPENTIN 100 MG CAPSULE PO SCH ×3 (09:32→17:12)
[2022-11-18] MEDS: VIT B CMPLX 3/FA/VIT C/BIOTIN 1 TAB TABLET PO SCH (09:32)
[2022-11-18] MEDS: ALLOPURINOL 100 MG TABLET PO SCH (09:33)
[2022-11-18] MEDS: ZINC SULFATE 220 MG CAPSULE PO SCH (09:33)
[2022-11-18] MEDS: ASCORBIC ACID 500 MG TABLET PO SCH (09:33)
[2022-11-18] MEDS: HEPARIN SODIUM, PORCINE 5000 UNITS/1 ML VIAL SQ SCH ×2 (09:35→21:13)
[2022-11-18] MEDS: DAKINS QUARTER STRENGTH (0.125%) 480 ML BOTTLE TOP SCH (09:37)
[2022-11-18] MEDS: PROSOURCE / PROSTAT (PYXIS) 30 ML UDC PO SCH (09:41)
[2022-11-18] MEDS ORDERED: CT SWABBABLE VALVE TRANS SET 1 EA INFUS.SET MC ONE (10:26)
[2022-11-18] MEDS ORDERED: IOHEXOL-350 100 ML VIAL IV ONE (10:26)
[2022-11-18] MEDS ORDERED: IV NS 0.9% 250 ML IV ONE (10:26)
[2022-11-18] MEDS: HYDROCODONE/APAP 5/325MG TABLET PO PRN (10:38)
--- NOTE | 2022-11-18 11:30 | NUR ---
DIRECTOR INVESTOR RELATIONS NOTE OF PATIENT REFUSAL OF ANALGESIC MEDICATION Patient requested pain relief pill for pain in swollen feet. RN brought norco 1 tab PO (5mg/325mg) to patient and she changed her mind and refused to take medication. Pt appeared confused. Re-checked vital signs and noted hypotension her oxygen cannula off with O2 sat at 94%. Put nasal cannula back into pt's nares. Will continue to monitor and care for pt per MD POC. Endorsed changes to hemodialysis nurse about to begin hemodialysis treatment.
[2022-11-18 12:00] VITALS: BP 110/47
--- NOTE | 2022-11-18 12:02 | NUR ---
CHIEF VENDOR QUALITY UPDATE NOTE (NON-COMPLIANCE) Patient refusing CTA and CT of head exams. Notified Dr. Dash who ordered psychiatric consultation to evaluate whether patient is competent to consent for treatment.
[2022-11-18] MEDS: INSULIN REGULAR, HUMAN 100 UNIT/ML 3 ML VIAL SQ PRN ×2 (12:33→17:27)
[2022-11-18 16:00] VITALS: BP 131/76
--- NOTE | 2022-11-18 18:40 | NUR ---
RESULTS OF CTA OF ABDOMEN/PELVIS & CT OF BLEs CT scan results reported via text to Dr. Dash at 17:55 hours. At about 18:[address] Dash replied asking this nurse to show results to Dr. Cameron. Texted screen shot photos of CT results to Dr. Cameron at 18:05 hours. No reply from Dr. Cameron, called phone number at 18:35 hours to discover it was his answering service not cellphone. Gave verbal report to male physician office secretary who said he would notify Dr. Cameron of the results.
--- NOTE | 2022-11-18 19:30 | NUR ---
THERAPEUTIC RECREATION ASSISTANT CLOSING NOTE (MONSERRAT DAYSHIFT) Still no call back nor text from Dr. Cameron regarding CT scan results from this afternoon. Patient is drowsy, oriented x 1 with confusion, showing sinus tachycardia in 110s to 120s for HR. Skin kept clean, dry, intact. All wound care treatments and medications given as prescribed. Held midday hydralazine due to hypotension during hemodialysis. Hemodialysis treatment drained 2 Liters over 3 hours. Patinet had poor appetite, eating the most at breakfast. CT scans completed in afternoon with family consent. Safety measures in place: three bed side rails up; bed alarm on; bed brakes locked on; call small/light within pt's reach; and bed in lowest position.
--- NOTE | 2022-11-18 19:35 | NUR ---
RN NOTES RECEIVED REPORT TO MORNING RN. PATIENT IN BED DROWSY, RESPONSIVE TO PAIN STIMULI. ON NASAL CANULA AT 2LPM SATING 99% NO SOB NO RESPIRATORY DISTRESS NOTED. WITH IV ACCESS AT FRA # 20 PATENT FLUSHES WELL. WITH L UA AV FISTULA + THRILL. VITAL SIGNS TAKEN AND RECORDED, AFEBRILE. ALL SAFETY MEASURES IN PLACE. HOB ELEVATED. CALL LIGHT WITHIN REACH WILL CLOSELY MONITOR THE PATIENT
[2022-11-18 20:00] VITALS: BP 107/53
[2022-11-18] MEDS ORDERED: VANCOMYCIN 1 GM in IV D5W 250ml IV ONE (20:00)
[2022-11-18] MEDS: CEFEPIME 1 GM in IV D5W 50 ML IV SCH (20:20)
--- NOTE | 2022-11-18 20:55 | NUR ---
RN NOTES PATIENT IS LETHARGIC RESPONSIVE TO PAIN STIMULI VITAL SIGN WNL. CERTIFIED NURSE PRACTITIONER MEHDI MADE AWARE. WILL CLOSELY MONITOR THE PATIENT
[2022-11-18] MEDS: NORTRIPTYLINE HCL 10 MG CAPSULE PO SCH (22:00)
[2022-11-18] MEDS: ATORVASTATIN 10 MG TABLET PO SCH (22:00)
[2022-11-18] MEDS: SENNOSIDES 8.6 MG TABLET PO SCH (22:00)
[2022-11-18] MEDS: INSULIN GLARGINE, 100 UNIT/ML CARTRIDGE SQ SCH (22:06)
[2022-11-19] VITALS: BP 93/59
[2022-11-19 04:00] VITALS: BP 139/56
[2022-11-19 07:27] LABS: BASOPHILS % (AUTO) 0.1 % (0.0-2.0); HEMATOCRIT 28 % (33-45); LYMPHOCYTES # (AUTO) 0.5 K/uL (0.8-4.8); LYMPHOCYTES % (AUTO) 1.5 % (20.0-44.0); MEAN CORPUSCULAR HGB CONC 32 g/dl (31.0-36.0); MEAN CORPUSCULAR VOLUME 95 fL (82-100); MONOCYTES % (AUTO) 3.1 % (2.0-12.0); NEUTROPHILS # (AUTO) 32.7 K/uL (1.8-8.9); NEUTROPHILS % (AUTO) 95.3 % (43.0-81.0); PLATELET COUNT (AUTO) 328 K/uL (150-450); RED BLOOD CELL COUNT(AUTO) 2.95 MIL/uL (4.0-5.2)
[2022-11-19 07:29] LABS: CALCIUM, SERUM 9.6 mg/dL (8.5-10.1); CARBON DIOXIDE 27 mmol/L (21-32); CHLORIDE 96 mmol/L (98-107); CREATININE 3.8 mg/dL (0.6-1.3); GLUCOSE 162 mg/dL (74-106); PHOSPHORUS 3.9 mg/dL (2.5-4.9); POTASSIUM 4.9 mmol/L (3.5-5.1); SODIUM SERUM 130 mmol/L (136-145); UREA NITROGEN, BLOOD 30 mg/dL (7-18)
[2022-11-19 08:00] VITALS: BP 139/62
[2022-11-19 08:02] LABS: WHITE BLOOD COUNT (AUTO) 34.4 K/uL (4.3-11.0)
[2022-11-19] MEDS: BLOOD SUGAR DIAGNOSTIC 1 EACH STRIP VI SCH ×4 (08:26→21:25)
[2022-11-19] MEDS: ACETAMINOPHEN 325 MG TABLET PO SCH (08:29)
[2022-11-19] MEDS: ISOSORBIDE DINITRATE (20MG) 20 MG TABLET PO SCH ×2 (08:29→17:00)
[2022-11-19] MEDS: ALLOPURINOL 100 MG TABLET PO SCH (08:29)
[2022-11-19] MEDS: LEVOTHYROXINE SODIUM 50 MCG TABLET PO SCH (08:29)
[2022-11-19] MEDS: ZINC SULFATE 220 MG CAPSULE PO SCH (08:29)
[2022-11-19] MEDS: hydrALAZINE HCL 25 MG TABLET PO SCH ×3 (08:30→17:00)
[2022-11-19] MEDS: SEVELAMER CARBONATE 800 MG TABLET PO SCH ×2 (08:30→17:19)
[2022-11-19] MEDS: LEVETIRACETAM (250 MG) 250 MG TABLET PO SCH ×2 (08:30→21:07)
[2022-11-19] MEDS: DOCUSATE SODIUM 100 MG CAPSULE PO SCH ×2 (08:30→17:00)
[2022-11-19] MEDS: ASPIRIN 81 MG TAB.CHEW PO SCH (08:30)
[2022-11-19] MEDS: FAMOTIDINE (20 MG) 20 MG TABLET PO SCH (08:30)
[2022-11-19] MEDS: ASCORBIC ACID 500 MG TABLET PO SCH (08:30)
[2022-11-19] MEDS: GABAPENTIN 100 MG CAPSULE PO SCH ×3 (08:30→17:00)
[2022-11-19] MEDS: DAKINS QUARTER STRENGTH (0.125%) 480 ML BOTTLE TOP SCH ×2 (08:31)
[2022-11-19] MEDS: METOPROLOL TARTRATE 50 MG TABLET PO SCH ×2 (08:31→21:07)
[2022-11-19] MEDS: FERROUS SULFATE (325 MG) 325 MG/TAB TABLET PO SCH (08:31)
[2022-11-19] MEDS: VIT B CMPLX 3/FA/VIT C/BIOTIN 1 TAB TABLET PO SCH (08:31)
[2022-11-19] MEDS: PROSOURCE / PROSTAT (PYXIS) 30 ML UDC PO SCH (08:32)
[2022-11-19] MEDS: HEPARIN SODIUM, PORCINE 5000 UNITS/1 ML VIAL SQ SCH ×2 (08:53→21:00)
--- NOTE | 2022-11-19 09:20 | NUR ---
PATIENT IS SLEEPING, DIALYSIS NURSE IS DOING HER DIALYSIS. PATIENT NOT WAKING UP TO TAKE HER MEDICATION DR. STRAUSS NOTIFIED AND SUGGESTED TO DO ABG, SHE REPLIES YES DO ABG AND AMMONIA LEVEL. STAT ORDER PLACED.
[2022-11-19 09:42] LABS: BASOPHILS % (AUTO) 0.1 % (0.0-2.0); HEMATOCRIT 26 % (33-45); HEMOGLOBIN 8.4 g/dL (11.5-14.8); LYMPHOCYTES # (AUTO) 0.5 K/uL (0.8-4.8); LYMPHOCYTES % (AUTO) 1.5 % (20.0-44.0); MEAN CORPUSCULAR HGB CONC 32 g/dl (31.0-36.0); MEAN CORPUSCULAR VOLUME 95 fL (82-100); MONOCYTES # (AUTO) 0.9 K/uL (0.1-1.30); MONOCYTES % (AUTO) 2.9 % (2.0-12.0); NEUTROPHILS # (AUTO) 30.5 K/uL (1.8-8.9); NEUTROPHILS % (AUTO) 95.5 % (43.0-81.0); PLATELET COUNT (AUTO) 288 K/uL (150-450); RED BLOOD CELL COUNT(AUTO) 2.75 MIL/uL (4.0-5.2)
[2022-11-19 10:06] LABS: ABG BASE EXCESS 1.8 mmol/L; ABG OXYGEN SATURATION 97.3 % (92.0-98.5); ABG PCO2 45.9 mmHg (35.0-45.0); ABG PO2 101.4 mmHg (75.0-100.0); AaDO2 44.1 mmHg; COHb 0.4 % (0.5-1.5); MetHb 0.3 % (0.0-1.5); O2Hb 96.6 % (94.0-97.0); SITE, ABG Right Radial; VENT MODE, BG CANNULA
[2022-11-19 10:43] LABS: BAND % (MANUAL) 2 % (0.0-5.0); LYMPHOCYTES % (MANUAL) 4 % (16-48); MONOCYTES % (MANUAL) 2 % (0-11.0); NEUTROPHILS % (MANUAL) 92 (42-76)
--- NOTE | 2022-11-19 11:30 | NUR ---
DIALYSIS DONE OUTPUT 2L
[2022-11-19 11:37] LABS: THYROID STIMULATING HORMONE 1.419 uIU/mL (0.358-3.74)
[2022-11-19 12:00] VITALS: BP 117/74
--- NOTE | 2022-11-19 12:49 | NUR ---
PER DR. STRAUSS HOLD PO MED UNTIL PATIENT IS FULLY AWAKE. ABG IS NORMAL, HEAD CT IS NORMAL. PER DR. STRAUSS HYDRALAZINE 10 MG IV NEEDED
[2022-11-19 16:00] VITALS: BP 146/61
--- NOTE | 2022-11-19 16:52 | NUR ---
PATIENT REFUSED THE ACCU CHECK
--- NOTE | 2022-11-19 19:00 | NUR ---
PATIENT SLEPT WHOLE DAY, ABG DONE TODAY RESULTS NORMAL, HEAD CT DONE YESTERDAY FINDINGS ARE NORMAL. VS WITHIN NORMAL. PO MED HELD BY DR. STRAUSS. PATIENT ALREADY INDORSE TO THE OFFICE ASSISTANCE NURSE FOR WINSOME
--- NOTE | 2022-11-19 19:30 | NUR ---
RN NOTES RECEIVED REPORT TO MORNING RN. PATIENT IN BED DROWSY, RESPONSIVE TO VERBAL STIMULI. ON NASAL CANULA AT 2LPM SATING 99% NO SOB NO RESPIRATORY DISTRESS NOTED. WITH IV ACCESS AT R WRIST # 24 PATENT FLUSHES WELL. WITH L UA AV FISTULA + THRILL. VITAL SIGNS TAKEN AND RECORDED, AFEBRILE. ALL SAFETY MEASURES IN PLACE. HOB ELEVATED. CALL LIGHT WITHIN REACH WILL CLOSELY MONITOR THE PATIENT
[2022-11-19] MEDS: CEFEPIME 1 GM in IV D5W 50 ML IV SCH (19:44)
[2022-11-19 20:00] VITALS: BP 126/66
[2022-11-19] MEDS ORDERED: MEROPENEM 500 MG in IV NS 0.9% 50 ML IV SCH (21:00)
[2022-11-19] MEDS: MEROPENEM 500 MG in IV NS 0.9% 50 ML IV SCH (21:06)
[2022-11-19] MEDS: ATORVASTATIN 10 MG TABLET PO SCH (21:07)
[2022-11-19] MEDS: NORTRIPTYLINE HCL 10 MG CAPSULE PO SCH (21:08)
[2022-11-19] MEDS: SENNOSIDES 8.6 MG TABLET PO SCH (21:08)
[2022-11-19] MEDS: INSULIN GLARGINE, 100 UNIT/ML CARTRIDGE SQ SCH (21:25)
[2022-11-20] VITALS: BP 128/64
[2022-11-20 04:00] VITALS: BP 131/75
--- NOTE | 2022-11-20 06:46 | NUR ---
RN NOTES PATIENT REMAINS STABLE NO SIGNIFICANT CHANGES. ALL DUE MEDS GIVEN ORDERED. PATIENT ON NPO. ALL DUE MEDS GIVEN ORDERED. FOR OR TODAY CONSENT @ CHART. WILL ENDORSED TO MORNING SHIFT FOR WINSOME
[2022-11-20] MEDS: LEVOTHYROXINE SODIUM 50 MCG TABLET PO SCH (07:30)
[2022-11-20] MEDS: FAMOTIDINE (20 MG) 20 MG TABLET PO SCH (07:30)
[2022-11-20] MEDS: BLOOD SUGAR DIAGNOSTIC 1 EACH STRIP VI SCH ×4 (07:30→22:22)
[2022-11-20 08:00] VITALS: BP 140/78
[2022-11-20] MEDS: SEVELAMER CARBONATE 800 MG TABLET PO SCH ×2 (08:00→17:04)
[2022-11-20] MEDS: DOCUSATE SODIUM 100 MG CAPSULE PO SCH ×2 (09:00→16:21)
[2022-11-20] MEDS: hydrALAZINE HCL 25 MG TABLET PO SCH ×3 (09:00→16:21)
[2022-11-20] MEDS: ASCORBIC ACID 500 MG TABLET PO SCH (09:00)
[2022-11-20] MEDS: MEROPENEM 500 MG in IV NS 0.9% 50 ML IV SCH ×2 (09:00→21:01)
[2022-11-20] MEDS: ZINC SULFATE 220 MG CAPSULE PO SCH (09:00)
[2022-11-20] MEDS: ALLOPURINOL 100 MG TABLET PO SCH (09:00)
[2022-11-20] MEDS: FERROUS SULFATE (325 MG) 325 MG/TAB TABLET PO SCH (09:00)
[2022-11-20] MEDS: ISOSORBIDE DINITRATE (20MG) 20 MG TABLET PO SCH ×2 (09:00→16:20)
[2022-11-20] MEDS: VIT B CMPLX 3/FA/VIT C/BIOTIN 1 TAB TABLET PO SCH (09:00)
[2022-11-20] MEDS: LEVETIRACETAM (250 MG) 250 MG TABLET PO SCH ×2 (09:00→21:01)
[2022-11-20] MEDS: PROSOURCE / PROSTAT (PYXIS) 30 ML UDC PO SCH (09:00)
[2022-11-20] MEDS: METOPROLOL TARTRATE 50 MG TABLET PO SCH ×2 (09:00→21:02)
[2022-11-20] MEDS: HEPARIN SODIUM, PORCINE 5000 UNITS/1 ML VIAL SQ SCH ×2 (09:00→21:07)
[2022-11-20] MEDS: ACETAMINOPHEN 325 MG TABLET PO SCH (09:00)
[2022-11-20] MEDS: ASPIRIN 81 MG TAB.CHEW PO SCH (09:00)
[2022-11-20] MEDS: GABAPENTIN 100 MG CAPSULE PO SCH ×3 (09:00→16:21)
[2022-11-20 09:06] LABS: BASOPHILS % (AUTO) 0.1 % (0.0-2.0); EOSINOPHILS % (AUTO) 0.3 % (0.0-6.0); HEMATOCRIT 29 % (33-45); HEMOGLOBIN 9.5 g/dL (11.5-14.8); LYMPHOCYTES # (AUTO) 0.6 K/uL (0.8-4.8); LYMPHOCYTES % (AUTO) 1.9 % (20.0-44.0); MEAN CORPUSCULAR HGB CONC 32 g/dl (31.0-36.0); MEAN CORPUSCULAR VOLUME 94 fL (82-100); MONOCYTES # (AUTO) 1.2 K/uL (0.1-1.30); NEUTROPHILS # (AUTO) 27.7 K/uL (1.8-8.9); NEUTROPHILS % (AUTO) 93.7 % (43.0-81.0); PLATELET COUNT (AUTO) 326 K/uL (150-450); RED BLOOD CELL COUNT(AUTO) 3.11 MIL/uL (4.0-5.2); WHITE BLOOD COUNT (AUTO) 29.6 K/uL (4.3-11.0)
--- NOTE | 2022-11-20 09:12 | NUR ---
PATIENT TAKEN TO THE SURGERY AT 0912 BY OR STAFF VIA HOSPITAL BED. PATIENT WAS NPO AND REFUSED ALL HER MEDICATIONS, BLOOD GLUCOSE 107 NO COVERAGE. HEPARIN HELD DID NOT ADMINISTERED PRIOR TO THE SURGERY.
[2022-11-20 09:18] LABS: CARBON DIOXIDE 25 mmol/L (21-32); CHLORIDE 98 mmol/L (98-107); CREATININE 3.9 mg/dL (0.6-1.3); GLUCOSE 121 mg/dL (74-106); PHOSPHORUS 3.7 mg/dL (2.5-4.9); POTASSIUM 4.3 mmol/L (3.5-5.1); SODIUM SERUM 131 mmol/L (136-145); UREA NITROGEN, BLOOD 35 mg/dL (7-18)
[2022-11-20] MEDS: DAKINS QUARTER STRENGTH (0.125%) 480 ML BOTTLE TOP SCH ×2 (09:23)
[2022-11-20 09:33] LABS: IRON, SERUM 19 ug/dl (50-175); TOTAL IRON BINDING CAPACITY 68 ug/dl (250-450)
[2022-11-20] MEDS ORDERED: KETAMINE HCL IN 0.9 % NACL 5 ML ONE (09:35)
[2022-11-20] MEDS ORDERED: FENTANYL PF 100MCG/2ML AMPUL ONE (09:35)
[2022-11-20] MEDS ORDERED: Magnesium 1 GM/2 ML VIAL ONE (09:35)
[2022-11-20] MEDS ORDERED: FAMOTIDINE/PF INJ 20 MG/2 ML VIAL IV ONE (09:36)
[2022-11-20] MEDS ORDERED: BUPIVACAINE 0.5 % PF 150 MG/30 ML VIAL ONE (10:16)
[2022-11-20] MEDS ORDERED: VANCOMYCIN 1 GM VIAL ONE (10:16)
--- NOTE | 2022-11-20 11:00 | NUR ---
ESTHER THE ANTIBIOTIX FOR 0900 WAS GIVEN IN OPERATION ROOM
--- NOTE | 2022-11-20 11:30 | NUR ---
PATIENT CAME BACK FROM OR INCISION AND DRAINAGE DOEN BUT THE METAL WAS NOT REMOVED YET.
--- NOTE | 2022-11-20 12:22 | NUR ---
PATIENT IS DOING DIALYSIS NOW, SINCE SHE IS MOVING LINE LEFT HAND RESTRAIN APPLIED PER DR. MOSES SO DIALYSIS NURSE CAN DO HIS JOB
--- NOTE | 2022-11-20 14:30 | NUR ---
DIALYSIS DONE OUT PUT 1900 ML
[2022-11-20] MEDS: HYDROCODONE/APAP 5/325MG TABLET PO PRN (14:49)
[2022-11-20 16:00] VITALS: BP 137/82
[2022-11-20] MEDS: LORAZEPAM INJ 2 MG/ML VIAL IV PRN (16:21)
[2022-11-20] MEDS ORDERED: VANCOMYCIN 1 GM in IV D5W 250 ML IV ONE (18:00)
[2022-11-20 18:48] LABS: FERRITIN 1718 ng/mL (8-388)
--- NOTE | 2022-11-20 19:00 | NUR ---
RN CLOSING NOTES: PATIENT SLEEPING IN HER BED, ON ROOM AIR O2 SAT 94%. KEPT CLEAN AND DRY. PATIENT NUTRITION STATUS CHANGED FROM NPO TO PUREED CONSISTENT. PATIENT ALREADY INDORSE TO THE OUTSIDE PARTS SALES NURSE FOR WINSOME
--- NOTE | 2022-11-20 19:03 | NUR ---
RN NOTES: RECEIVED AWAKE, SEMI FOWLERS POSITION,A/OX1 TO SELF ONLY, DROWSY AND SLEEPY, ON TELE MONITOR SINUS RHYTHM-98, O2 AT 2L/MIN VIA NSAAL CANNULA, SHE IS REMOVING IT IN BETWEEN, LEFT HAND SOFT RESTRAINT, DUE FOR RENEWAL DUE ON 11/21 AT 1237PM SHARLENE AV FISTULA, IV CANNULA ON THE RIGHT WRIST G#20, NO IVF, SHE HAD INCISION DRAINAGE OF ABSCESS EXCISION DEBRIDEMENT OF ULCER LEFT ANKLE AND REMOVAL OF FAILED HARDWARE LEFT ANKLE, SAFETY PRECAUTION OBSERVED.
[2022-11-20 20:00] VITALS: BP 126/60
[2022-11-20] MEDS: ATORVASTATIN 10 MG TABLET PO SCH (21:15)
[2022-11-20] MEDS: NORTRIPTYLINE HCL 10 MG CAPSULE PO SCH (21:16)
[2022-11-20] MEDS: SENNOSIDES 8.6 MG TABLET PO SCH (21:16)
[2022-11-20] MEDS: INSULIN GLARGINE, 100 UNIT/ML CARTRIDGE SQ SCH (22:24)
[2022-11-20] MEDS: INSULIN REGULAR, HUMAN 100 UNIT/ML 3 ML VIAL SQ PRN (22:25)
--- NOTE | 2022-11-20 22:29 | NUR ---
RN NOTES: BLOOD SUGAR CHECKED-157, DRINK JUICE, INSULIN GIVEN PER SCALE, WILL CONTINUE TO MONITOR FOR ANY SIGN OF HYPER AND HYPOGLYCEMIA
--- NOTE | 2022-11-20 22:44 | NUR ---
RN NOTES: AWAKE REPOSITIONED, GIVEN WATER, ASPIRATION PRECAUTION OBSERVED, WENT BACK TO SLEEP, NO PAIN OR DISCOMFORT.
[2022-11-21] VITALS: BP 136/60
[2022-11-21 04:00] VITALS: BP 149/50
--- NOTE | 2022-11-21 05:36 | NUR ---
RN NOTES: BED BATH RENDERED, TURNED AND REPOSITIONED, FACIAL GRIMACE NOTED, AFTER THAT COMPLAINED OF PAIN, PRN MEDS GIVEN. Addendum: 11/21/22 at 0551 by ANAI ARTEAGA RN ADDED NOTES: 0529 NORCO GIVEN, AND SHE KEEP ON SHOUTING AND YELLING SHE WANTS SOME MORE PAIN MEDS, EXPLAINED TO HER THAT IT WAS ALREADY BEEN GIVEN, SHE CONSUMED THE APPLE SAUCE ALONG WITH NORCO.
[2022-11-21] MEDS: HYDROCODONE/APAP 5/325MG TABLET PO PRN (05:39)
--- NOTE | 2022-11-21 06:53 | NUR ---
RN NOTES: REPOSITIONED, PAIN MEDS ALREADY GIVEN AND SHE KEEP ON ASKING, FORGETFUL AND CONFUSED, ORIENTED TO REALITY AND EXPLAINED TO HER THAT SHE RECEIVED HER PAIN MEDICATION, THIS TIME NO MORE FACIAL GRIMACE, SHE SAY HER PRAYER IN A VERY LOUD VOICE, SHE WANTS SOMEBODY TO STAY WITH HER AT ALL TIMES, IF NO ONE IS THERE SHE SHOUT AND CALL FOR SOMEONE TO COME, ON O2 INHALATION, ENDORSED TO F/U LEFT ANKLE ORIF DOCUMENT FROM OUTSIDE HOSPITAL, TO CALL HER FAMILY IN THE MORNIGN TO GET INFORMATION.
[2022-11-21] MEDS: FAMOTIDINE (20 MG) 20 MG TABLET PO SCH (07:30)
[2022-11-21] MEDS: LEVOTHYROXINE SODIUM 50 MCG TABLET PO SCH (07:30)
[2022-11-21 08:00] VITALS: BP 126/76
[2022-11-21] MEDS: SEVELAMER CARBONATE 800 MG TABLET PO SCH ×2 (08:00→17:20)
[2022-11-21 08:07] LABS: CALCIUM, SERUM 10.6 mg/dL (8.5-10.1); CARBON DIOXIDE 23 mmol/L (21-32); CHLORIDE 98 mmol/L (98-107); CREATININE 3.7 mg/dL (0.6-1.3); GLUCOSE 129 mg/dL (74-106); MAGNESIUM 2.3 mg/dL (1.8-2.4); PHOSPHORUS 3.4 mg/dL (2.5-4.9); POTASSIUM 4.6 mmol/L (3.5-5.1); SODIUM SERUM 131 mmol/L (136-145); UREA NITROGEN, BLOOD 31 mg/dL (7-18)
--- NOTE | 2022-11-21 08:39 | NUR ---
RN OPENING NOTE RECEIVED PATIENT IN BED AO x 1, CONFUSED, ABLE TO RESPONDS PHYSICAL STIMULI. RESPIRATORY EVEN AND UNLABORED ON OXYGEN AT 2Ls. IN NO ACUTE RESPIRATORY DISTRESS OBSERVED. SKIN IS WARM TO TOUCH, KEEP CLEAN/DRY. PATIENT UNABLE TO DONE HD TO DUE CLOUDED FISTULA ACCESS. DR. WALTON AWARE. KEPT ELEVATED HOB FOR ASPIRATION PRECAUTION AND ENSURE AIRWAY, ALSO LOWEST BED POSITIONED. BED ALARM IS ON AT ALL TIMES FOR SAFETY. CALL LIGHT WITHIN REACH, WILL CONTINUE TO MONITOR.
[2022-11-21 08:42] LABS: BASOPHILS # (AUTO) 0.1 K/uL (0.0-0.2); BASOPHILS % (AUTO) 0.4 % (0.0-2.0); EOSINOPHILS % (AUTO) 1.5 % (0.0-6.0); HEMATOCRIT 27 % (33-45); HEMOGLOBIN 8.6 g/dL (11.5-14.8); LYMPHOCYTES # (AUTO) 0.7 K/uL (0.8-4.8); LYMPHOCYTES % (AUTO) 3.4 % (20.0-44.0); MEAN CORPUSCULAR HGB CONC 32 g/dl (31.0-36.0); MEAN CORPUSCULAR VOLUME 94 fL (82-100); MONOCYTES # (AUTO) 1.1 K/uL (0.1-1.30); MONOCYTES % (AUTO) 5.4 % (2.0-12.0); NEUTROPHILS % (AUTO) 89.3 % (43.0-81.0); PLATELET COUNT (AUTO) 288 K/uL (150-450); RED BLOOD CELL COUNT(AUTO) 2.85 MIL/uL (4.0-5.2); WHITE BLOOD COUNT (AUTO) 20.1 K/uL (4.3-11.0)
[2022-11-21] MEDS: ALLOPURINOL 100 MG TABLET PO SCH (09:00)
[2022-11-21] MEDS: ISOSORBIDE DINITRATE (20MG) 20 MG TABLET PO SCH ×2 (09:00→17:00)
[2022-11-21] MEDS: FERROUS SULFATE (325 MG) 325 MG/TAB TABLET PO SCH (09:00)
[2022-11-21] MEDS: hydrALAZINE HCL 25 MG TABLET PO SCH ×3 (09:00→17:00)
[2022-11-21] MEDS: MEROPENEM 500 MG in IV NS 0.9% 50 ML IV SCH ×2 (09:00→21:41)
[2022-11-21] MEDS: ACETAMINOPHEN 325 MG TABLET PO SCH (09:00)
[2022-11-21] MEDS: GABAPENTIN 100 MG CAPSULE PO SCH ×3 (09:00→17:00)
[2022-11-21] MEDS: ZINC SULFATE 220 MG CAPSULE PO SCH (09:00)
[2022-11-21] MEDS: PROSOURCE / PROSTAT (PYXIS) 30 ML UDC PO SCH (09:00)
[2022-11-21] MEDS: DOCUSATE SODIUM 100 MG CAPSULE PO SCH ×2 (09:00→17:00)
[2022-11-21] MEDS: VIT B CMPLX 3/FA/VIT C/BIOTIN 1 TAB TABLET PO SCH (09:00)
[2022-11-21] MEDS: ASPIRIN 81 MG TAB.CHEW PO SCH (09:00)
[2022-11-21] MEDS: LEVETIRACETAM (250 MG) 250 MG TABLET PO SCH ×2 (09:00→21:53)
[2022-11-21] MEDS: METOPROLOL TARTRATE 50 MG TABLET PO SCH ×2 (09:00→21:54)
[2022-11-21] MEDS: ASCORBIC ACID 500 MG TABLET PO SCH (09:00)
[2022-11-21] MEDS: BLOOD SUGAR DIAGNOSTIC 1 EACH STRIP VI SCH ×4 (09:19→21:54)
[2022-11-21] MEDS: DAKINS QUARTER STRENGTH (0.125%) 480 ML BOTTLE TOP SCH ×2 (09:23)
[2022-11-21] MEDS: HEPARIN SODIUM, PORCINE 5000 UNITS/1 ML VIAL SQ SCH ×2 (09:24→21:41)
[2022-11-21] MEDS ORDERED: NEPRO VAN 237 ML CAN PO PRN (10:00)
[2022-11-21 12:00] VITALS: BP 126/70
[2022-11-21 16:00] VITALS: BP 126/62
--- NOTE | 2022-11-21 18:00 | NUR ---
RN CLOSING NOTE PATIENT RESTING IN BED. IN NO ACUTE DISTRESS OBSERVED. RESPIRATORY EVEN AND UNLABORED IN ROOM AIR, O2SAT 100%, NO SOB OR DESATURATION NOTED. SKIN IS WARM TO TOUCH KEEP CLEAN/DRY. KEPT ELEVATED HOB FOR ENSURE AIRWAY AND ASPIRATION PRECAUTION, ALSO LOWEST BED POSITION. BED ALARM IS ON AT ALL TIMES FOR SAFETY. CALL LIGHT WITHIN REACH, WILL ENDORSE ONLINE USER EXPERIENCE STRATEGIST.
--- NOTE | 2022-11-21 19:50 | NUR ---
RN OPENING NOTES: RECEIVED PATIENT IN BED, SLEEPING BUT EASILY AROUSABLE, A/O x 1 WITH CONFUSE, RESPONSIVE TO PAINFUL STIMULI. BREATHING EVEN AND UNLABORED. BREATHING EVEN AND UNLABORED. ON ROOM AIR AND PT TOLERATED WELL. IV ACCESS ON RT UPPER ARM MIDLINE INTACT AND PATENT. NO BLEEDING NOTED. NO FACIAL GRIMACING NOTED. NO ACUTE DISTRESS.UNABLE TO DO HD TO DUE CLOUDED FISTULA ACCESS. ALL SAFETY MEASURES IN PLACE. BED IN LOWEST POSITION AND LOCKED. SIDE RAILS UP X3, BED ALARM ON. SOFT LEFT RESTRAINTS ON. PLACE CALL LIGHT WITHIN REACH. WILL CONTINUE TO MONITOR.
[2022-11-21 20:00] VITALS: BP 136/67
[2022-11-21] MEDS: SENNOSIDES 8.6 MG TABLET PO SCH (21:51)
[2022-11-21] MEDS: ATORVASTATIN 10 MG TABLET PO SCH (21:51)
[2022-11-21] MEDS: NORTRIPTYLINE HCL 10 MG CAPSULE PO SCH (21:53)
[2022-11-21] MEDS: INSULIN REGULAR, HUMAN 100 UNIT/ML 3 ML VIAL SQ PRN (21:55)
[2022-11-21] MEDS: INSULIN GLARGINE, 100 UNIT/ML CARTRIDGE SQ SCH (21:56)
--- NOTE | 2022-11-21 22:20 | NUR ---
RN NOTES: PT'S BLOOD SUGAR 84. DIDN'T EAT ANY DINNER. HOLD LANTUS 15 UNITS AND NO COVERAGE FOR REGULAR INSULIN. NO S/S OF HYPER/HYPOGLYCEMIA. WILL CONTINUE TO MONITOR
[2022-11-22] VITALS: BP 138/66
[2022-11-22 04:00] VITALS: BP 151/62
--- NOTE | 2022-11-22 06:53 | NUR ---
RN CLOSING NOTES: PATIENT IN BED, SLEEPING BUT EASILY AROUSABLE, A/O x 1 WITH CONFUSE, RESPONSIVE TO PAINFUL STIMULI. BREATHING EVEN AND UNLABORED. BREATHING EVEN AND UNLABORED. ON O2 AT 2L/MIN VIA N/C AND PT TOLERATED WELL. O2 SAT 95%. IV ACCESS ON RT UPPER ARM MIDLINE INTACT AND PATENT. NO BLEEDING NOTED. NO FACIAL GRIMACING NOTED. NO ACUTE DISTRESS.ALL DUE MEDS GIVEN ORDERED. ALL SAFETY MEASURES IN PLACE. BED IN LOWEST POSITION AND LOCKED. SIDE RAILS UP X3, BED ALARM ON. SOFT LEFT RESTRAINTS ON. PLACE CALL LIGHT WITHIN REACH. WILL ENDORSE TO MORNING SHIFT NURSE.
--- NOTE | 2022-11-22 07:15 | NUR ---
RN OPENING NOTE RECEIVED PATIENT IN BED, AWAKE, A/O x 1, BREATHING EVEN AND UNLABORED ON ROOM AIR. IV ACCESS ON RT UPPER ARM MIDLINE INTACT AND PATENT. PER PRIOR SHIFT NURSE PT WAS UNABLE TO HAD HD SESSION DUE TO CLOUDED FISTULA ACCESS, WILL NOTIFY ALL SAFETY MEASURES IN PLACE. BED IN LOWEST POSITION AND LOCKED. SIDE RAILS UP X3, BED ALARM ON. SOFT LEFT RESTRAINTS ON. PLACE CALL LIGHT WITHIN REACH. WILL CONTINUE TO MONITOR.
[2022-11-22 07:33] LABS: CALCIUM, SERUM 10.1 mg/dL (8.5-10.1); CARBON DIOXIDE 25 mmol/L (21-32); CHLORIDE 99 mmol/L (98-107); CREATININE 4.6 mg/dL (0.6-1.3); GLUCOSE 103 mg/dL (74-106); POTASSIUM 4.4 mmol/L (3.5-5.1); SODIUM SERUM 134 mmol/L (136-145); UREA NITROGEN, BLOOD 39 mg/dL (7-18)
[2022-11-22] MEDS: SEVELAMER CARBONATE 800 MG TABLET PO SCH ×2 (07:39→18:25)
[2022-11-22] MEDS: FAMOTIDINE (20 MG) 20 MG TABLET PO SCH (07:40)
[2022-11-22] MEDS: LEVOTHYROXINE SODIUM 50 MCG TABLET PO SCH (07:40)
[2022-11-22] MEDS: BLOOD SUGAR DIAGNOSTIC 1 EACH STRIP VI SCH ×4 (07:58→21:40)
[2022-11-22 08:00] VITALS: BP 117/62
[2022-11-22] MEDS: PROSOURCE / PROSTAT (PYXIS) 30 ML UDC PO SCH (08:15)
[2022-11-22] MEDS: DAKINS QUARTER STRENGTH (0.125%) 480 ML BOTTLE TOP SCH ×2 (08:16→08:17)
[2022-11-22] MEDS: MEROPENEM 500 MG in IV NS 0.9% 50 ML IV SCH ×2 (08:29→21:30)
[2022-11-22] MEDS: DOCUSATE SODIUM 100 MG CAPSULE PO SCH ×2 (08:30→16:35)
[2022-11-22] MEDS: ASCORBIC ACID 500 MG TABLET PO SCH (08:31)
[2022-11-22] MEDS: ASPIRIN 81 MG TAB.CHEW PO SCH (08:31)
[2022-11-22] MEDS: METOPROLOL TARTRATE 50 MG TABLET PO SCH ×2 (08:31→21:29)
[2022-11-22] MEDS: hydrALAZINE HCL 25 MG TABLET PO SCH ×3 (08:32→16:33)
[2022-11-22] MEDS: ALLOPURINOL 100 MG TABLET PO SCH (08:32)
[2022-11-22] MEDS: GABAPENTIN 100 MG CAPSULE PO SCH ×3 (08:32→16:34)
[2022-11-22] MEDS: ZINC SULFATE 220 MG CAPSULE PO SCH (08:33)
[2022-11-22] MEDS: ACETAMINOPHEN 325 MG TABLET PO SCH (08:33)
[2022-11-22] MEDS: LEVETIRACETAM (250 MG) 250 MG TABLET PO SCH ×2 (08:33→21:27)
[2022-11-22] MEDS: FERROUS SULFATE (325 MG) 325 MG/TAB TABLET PO SCH (08:34)
[2022-11-22] MEDS: ISOSORBIDE DINITRATE (20MG) 20 MG TABLET PO SCH ×2 (08:34→16:34)
[2022-11-22] MEDS: HEPARIN SODIUM, PORCINE 5000 UNITS/1 ML VIAL SQ SCH ×2 (08:37→21:00)
[2022-11-22] MEDS: VIT B CMPLX 3/FA/VIT C/BIOTIN 1 TAB TABLET PO SCH (08:39)
[2022-11-22 12:00] VITALS: BP 98/36
[2022-11-22 16:00] VITALS: BP 108/37
--- NOTE | 2022-11-22 16:00 | NUR ---
CALL PT FAMILY NO INFORMATION AVAILABLE FOR PRIOR SURGERY, PTs RECALL ONLY IT WAS OVER 3 YEARS AGO, PROMISE TO ASK A DAUGHTER AND GIVE MORE DETAILED INFORMATION.
[2022-11-22] MEDS: HYDROCODONE/APAP 5/325MG TABLET PO PRN (16:35)
[2022-11-22] MEDS: *INSULIN REGULAR(HUMULIN R)HUM 100 UNIT/ML VIAL SQ PRN ×2 (16:48→21:41)
--- NOTE | 2022-11-22 19:02 | NUR ---
PT IS ASLEEP NO C/O AT THIS TIME. WILL ENDORSE TO THE NEXT SHIFT NURSE FOR WINSOME.
[2022-11-22 20:00] VITALS: BP 136/48
[2022-11-22] MEDS: SENNOSIDES 8.6 MG TABLET PO SCH (21:27)
[2022-11-22] MEDS: ATORVASTATIN 10 MG TABLET PO SCH (21:28)
[2022-11-22] MEDS: NORTRIPTYLINE HCL 10 MG CAPSULE PO SCH (21:28)
[2022-11-22] MEDS: INSULIN GLARGINE, 100 UNIT/ML CARTRIDGE SQ SCH (21:40)
[2022-11-23] VITALS (9 sets, daily range): BP systolic 120–142; BP diastolic 46–98
--- NOTE | 2022-11-23 06:15 | NUR ---
RN CLOSING NOTES, PATIENT IN BED, SLEEPING EASY TO AROUSE, AT 2LPM NO SOB/ACUTE DISTRESS NOTED DURING THE NIGHT,BREATHING EVEN AND UNLABORED WITH O2 SAT> 95%, NSR IN TELE MONITOR, RT UPPER ARM MIDLINE INTACT AND PATENT, NPO SINCE MIDNIGHT FOR PLATE REMOVAL OF LEFT ANKLE, CONSENT IN CHART, PROCEDURE AT 0730, STABLE VITAL SIGNS, ALL SAFETY MEASURES IN PLACE, BED LOCKED AND IN LOWEST POSITION, SIDE RAILS UP X3, BED ALARM ON, BILATERAL SOFT WRIST RESTRAINTS RELEASED, NO PULLING NOTED, WILL ENDORSE FOR CONTINUITY OF CARE, AND POSSIBLE DC OF RESTRAINS.
[2022-11-23] MEDS ORDERED: FAMOTIDINE/PF INJ 20 MG/2 ML VIAL IV ONE (06:19)
[2022-11-23] MEDS ORDERED: FENTANYL PF 250MCG/5ML AMPUL ONE (06:19)
--- NOTE | 2022-11-23 06:20 | NUR ---
PATIENT TAKEN TO OR AT THIS TIME, NPO SINCE MIDNIGHT, STABLE VITAL SINGS, CONSENT BY CORRINA REID IN CHART, PT ON 2LPM, AWAKE A/O TO SELF, TELE MONITOR IN PLACED WITH PATIENT.
[2022-11-23] MEDS ORDERED: ANESTHESIA TRAY IN PYXIS 1 EA TRAY MC ONE ×2 (06:29→06:53)
[2022-11-23] MEDS ORDERED: POLYMYXIN B SULFATE 0 UNITS ONE (06:29)
[2022-11-23] MEDS ORDERED: LIDOCAINE 1% INJ 50 ML MDV IJ ONE (06:30)
[2022-11-23] MEDS ORDERED: VANCOMYCIN 1 GM VIAL ONE (06:30)
[2022-11-23] MEDS ORDERED: BUPIVACAINE 0.5 % PF 150 MG/30 ML VIAL ONE (06:30)
[2022-11-23] MEDS: BLOOD SUGAR DIAGNOSTIC 1 EACH STRIP VI SCH ×4 (07:30→21:47)
[2022-11-23] MEDS: LEVOTHYROXINE SODIUM 50 MCG TABLET PO SCH (07:30)
[2022-11-23] MEDS: FAMOTIDINE (20 MG) 20 MG TABLET PO SCH (07:30)
[2022-11-23] MEDS: SEVELAMER CARBONATE 800 MG TABLET PO SCH ×2 (08:00→17:41)
--- NOTE | 2022-11-23 08:00 | NUR ---
telecommunicator supervisor note patient at surgery at this time
[2022-11-23] MEDS: ACETAMINOPHEN 325 MG TABLET PO SCH (09:00)
[2022-11-23] MEDS: HEPARIN SODIUM, PORCINE 5000 UNITS/1 ML VIAL SQ SCH ×2 (09:00→21:00)
[2022-11-23] MEDS: METOPROLOL TARTRATE 50 MG TABLET PO SCH ×2 (09:00→21:25)
[2022-11-23] MEDS: PROSOURCE / PROSTAT (PYXIS) 30 ML UDC PO SCH (09:00)
[2022-11-23] MEDS: ZINC SULFATE 220 MG CAPSULE PO SCH (09:00)
[2022-11-23] MEDS: hydrALAZINE HCL 25 MG TABLET PO SCH ×3 (09:00→17:02)
[2022-11-23] MEDS: DOCUSATE SODIUM 100 MG CAPSULE PO SCH ×2 (09:00→17:01)
[2022-11-23] MEDS: ALLOPURINOL 100 MG TABLET PO SCH (09:00)
[2022-11-23] MEDS: ASPIRIN 81 MG TAB.CHEW PO SCH (09:00)
[2022-11-23] MEDS: FERROUS SULFATE (325 MG) 325 MG/TAB TABLET PO SCH (09:00)
[2022-11-23] MEDS: VIT B CMPLX 3/FA/VIT C/BIOTIN 1 TAB TABLET PO SCH (09:00)
[2022-11-23] MEDS: ISOSORBIDE DINITRATE (20MG) 20 MG TABLET PO SCH ×2 (09:00→17:02)
[2022-11-23] MEDS: ASCORBIC ACID 500 MG TABLET PO SCH (09:00)
[2022-11-23] MEDS: LEVETIRACETAM (250 MG) 250 MG TABLET PO SCH ×2 (09:00→21:17)
[2022-11-23] MEDS: GABAPENTIN 100 MG CAPSULE PO SCH ×3 (09:00→17:01)
--- NOTE | 2022-11-23 09:54 | NUR ---
OPENING RN NOTE RECEIVED PATIENT FROM SURGERY ALERT WITH CONFUSION WITH 2LNS. NO SOB NOTED,PLACED ON TELE SR 69 HR. PATIENT HAS LEFT LEG WITH DRESSING ON WITH WOUND VAC ORDERED. SMALL AMOUNT OF BLOODY DRAINAGE NOTED IN THE TUBE. PATIENT HAS RIGHT UPPER MIDLINE. LEFT AV SHUNT IN PLACE.PATIENT DOES NOT COMPLAIN OF PAIN. STATUS POST PROCEDURE REMOVED LEFT ANKLE HARDWARE AND DEBRIDEMENT BY DR JARRETT SANDOVAL. ALL NEEDS ATTENDED, NOT IN DISTRESS, SOFT RESTRAINTS ON LEFT WRIST AND PATIENT AT RISK TO REMOVE ALL LINES. WILL CONTINUE TO MONITOR Addendum: 11/23/22 at 1041 by SOLOMON TALAMANTES RN BOTH FEET WARM TO TOUCH ,ABLE TO MOVE BOTH FEET
--- NOTE | 2022-11-23 10:00 | NUR ---
television cable installer note lt foot s\p surgery lt ankle hardware removed and debridement, lt foot with edema ,keep elevated on pillow as tolerated, no c\o pain at this time skin warm and dry
[2022-11-23] MEDS: MEROPENEM 500 MG in IV NS 0.9% 50 ML IV SCH ×2 (10:04→21:17)
--- NOTE | 2022-11-23 10:49 | NUR ---
WOUND CARE CONSULT: PT PRESENTS WITH MEDELA NEGATIVE PRESSURE WOUND THERAPY DEVICE TO LEFT LOWER LEG AT 125mmHg SETTING AND SMALL AMOUNT (ABOUT 50 CC RED DRAINAGE IN CANISTER). WILL FOLLOW.
--- NOTE | 2022-11-23 11:34 | NUR ---
CARDROOM ATTENDANT NOTE CONSENT FORE HD CATH PLACEMENT AND AV FISTULA THROMBECTOMY OBTAINED SPOKE WITH DAUGHTER LOYDA
[2022-11-23 12:51] LABS: CALCIUM, SERUM 9.7 mg/dL (8.5-10.1); CARBON DIOXIDE 22 mmol/L (21-32); CHLORIDE 100 mmol/L (98-107); CREATININE 5.7 mg/dL (0.6-1.3); GLUCOSE 113 mg/dL (74-106); SODIUM SERUM 134 mmol/L (136-145); UREA NITROGEN, BLOOD 45 mg/dL (7-18)
--- NOTE | 2022-11-23 15:59 | NUR ---
color television console monitor note rounds made turn reposition keep clean dry
[2022-11-23] MEDS ORDERED: HYDROCODONE/APAP 10/325MG TABLET PO PRN (16:30)
[2022-11-23] MEDS: INSULIN REGULAR, HUMAN 100 UNIT/ML 3 ML VIAL SQ PRN (18:01)
--- NOTE | 2022-11-23 18:50 | NUR ---
RN CLOSING NOTES PATIENT IN BED, SLEEPING BUT EASILY ABUSABLE AND FED 75%, ASPIRATION PRECAUTIONS TAKEN AND OBSERVED. PATIENT HAS LEFT LEG POST STATUS SURGERY FOR REMOVAL OF LEFT ANKLE HARDWARE AND DEBRIDEMENT, WOUND VAC IN PLACE WITH 10CC BLOODY DRAINAGE NOTED. A/O x 1 WITH CONFUSE, RESPONSIVE TO PAINFUL STIMULI. BREATHING EVEN AND UNLABORED. ON O2 AT 2L NS, NO SHORTNESS OF BREATH NOTED.ON 02 SAT96%. IV ACCESS MIDLINE ON RIGHT UPPER ARM BEN 20 PATENT AND FLUSHING WELL. NO PAIN, DISCOMFORT OR FACIAL GRIMACING NOTED. PATIENT WAS REPOSITIONED EVERY TWO HOURS, ALL MEDICATIONS GIVEN ORDERED. ALL SAFETY MEASURES IN PLACE. BED IN LOWEST AND LOCKED POSITION SIDE RAILS UP X3, BED ALARM ON. SOFT LEFT RESTRAINTS ON. PLACE CALL LIGHT WITHIN REACH. HEAD OF BED ELEVATED, ALL SAFETY MEASURES IMPLEMENTED WILL ENDORSE TO RN PROCEDURES NURSE FOR CONTINUING OF CARE.
[2022-11-23] MEDS: ATORVASTATIN 10 MG TABLET PO SCH (21:17)
[2022-11-23] MEDS: NORTRIPTYLINE HCL 10 MG CAPSULE PO SCH (21:18)
[2022-11-23] MEDS: SENNOSIDES 8.6 MG TABLET PO SCH (21:18)
[2022-11-23] MEDS: INSULIN GLARGINE, 100 UNIT/ML CARTRIDGE SQ SCH (21:48)
[2022-11-23] MEDS: *INSULIN REGULAR(HUMULIN R)HUM 100 UNIT/ML VIAL SQ PRN (21:49)
[2022-11-24] VITALS (7 sets, daily range): BP systolic 102–140; BP diastolic 44–87
--- NOTE | 2022-11-24 06:52 | NUR ---
RN CLOSING NOTES, PATIENT IN BED, SLEEPING EASY TO AROUSE, AT 2LPM NO SOB/ACUTE DISTRESS NOTED DURING THE NIGHT, WITH O2 SAT> 95%, NSR IN TELE MONITOR, RT UPPER ARM MIDLINE INTACT AND PATENT, NPO SINCE MIDNIGHT FOR POSSIBLE LEFT HD AV SHUNT REPAIR, OR POSSIBLE HD CATH PLACEMENT PER DR TYSON, CONSENT IN CHART, STABLE VITAL SIGNS, ALL SAFETY MEASURES IN PLACE, BED LOCKED AND IN LOWEST POSITION, SIDE RAILS UP X3, BED ALARM ON, LEFT SOFT WRIST RESTRAINTS RELEASED, NO PULLING NOTED DURING NIGHT, WILL ENDORSE FOR CONTINUITY OF CARE TO ONCOMING NURSE.
[2022-11-24] MEDS: FAMOTIDINE (20 MG) 20 MG TABLET PO SCH (07:30)
[2022-11-24] MEDS: LEVOTHYROXINE SODIUM 50 MCG TABLET PO SCH (07:30)
[2022-11-24] MEDS: SEVELAMER CARBONATE 800 MG TABLET PO SCH ×2 (08:00→18:26)
[2022-11-24] MEDS: BLOOD SUGAR DIAGNOSTIC 1 EACH STRIP VI SCH ×4 (08:03→21:58)
[2022-11-24] MEDS: ASPIRIN 81 MG TAB.CHEW PO SCH (09:00)
[2022-11-24] MEDS: ISOSORBIDE DINITRATE (20MG) 20 MG TABLET PO SCH ×2 (09:00→16:38)
[2022-11-24] MEDS: VIT B CMPLX 3/FA/VIT C/BIOTIN 1 TAB TABLET PO SCH (09:00)
[2022-11-24] MEDS: ASCORBIC ACID 500 MG TABLET PO SCH (09:00)
[2022-11-24] MEDS: LEVETIRACETAM (250 MG) 250 MG TABLET PO SCH ×2 (09:00→21:23)
[2022-11-24] MEDS: METOPROLOL TARTRATE 50 MG TABLET PO SCH ×2 (09:00→21:25)
[2022-11-24] MEDS: hydrALAZINE HCL 25 MG TABLET PO SCH ×3 (09:00→16:38)
[2022-11-24] MEDS: DOCUSATE SODIUM 100 MG CAPSULE PO SCH ×2 (09:00→16:38)
[2022-11-24] MEDS: PROSOURCE / PROSTAT (PYXIS) 30 ML UDC PO SCH (09:00)
[2022-11-24] MEDS: ALLOPURINOL 100 MG TABLET PO SCH (09:00)
[2022-11-24] MEDS: GABAPENTIN 100 MG CAPSULE PO SCH ×3 (09:00→16:38)
[2022-11-24] MEDS: ACETAMINOPHEN 325 MG TABLET PO SCH (09:00)
[2022-11-24] MEDS: FERROUS SULFATE (325 MG) 325 MG/TAB TABLET PO SCH (09:00)
[2022-11-24] MEDS: ZINC SULFATE 220 MG CAPSULE PO SCH (09:00)
--- NOTE | 2022-11-24 09:33 | NUR ---
rn note medications on hold due to pt receiving surgery
[2022-11-24] MEDS: MEROPENEM 500 MG in IV NS 0.9% 50 ML IV SCH (09:38)
[2022-11-24] MEDS: VANCOMYCIN POST DIALYSIS 500MG IV PRN ×2 (12:03)
[2022-11-24] MEDS ORDERED: LIDOCAINE HCL/MPF 1% 30 ML VIAL IJ ONE (12:58)
[2022-11-24] MEDS ORDERED: CELLULOSE,OXIDIZED 1 EACH EACH MC ONE (12:59)
[2022-11-24] MEDS ORDERED: IOHEXOL 0 ML IV ONE (12:59)
[2022-11-24] MEDS ORDERED: HEPARIN SODIUM, PORCINE 1,000 UNIT/ML VIAL ONE (13:00)
[2022-11-24] MEDS ORDERED: CELLULOSE,OXIDIZED 1 PKT EACH MC ONE (13:00)
--- NOTE | 2022-11-24 13:59 | NUR ---
rn note pt left in stable condition. picked up for surgery
[2022-11-24] MEDS ORDERED: ROCURONIUM BROMIDE 50 MG/5 ML ONE (15:00)
[2022-11-24] MEDS ORDERED: BUPIVACAINE 0.5 % PF 150 MG/30 ML VIAL ONE (15:35)
--- NOTE | 2022-11-24 17:00 | NUR ---
rn note pt back from surgery. endorsed to order stat chest xray, line okay to use and resume diet
--- NOTE | 2022-11-24 19:25 | NUR ---
rn closing note PATIENT IN BED. ALERT AND ORIENTED X3. PT ON 2-3 L NASAL CANNULA ABOVE 92%. NO SIGNS OF PAIN OR DISCOMFORT NOTED AT THIS TIME. ON TELE MONITOR, RT UPPER ARM MIDLINE INTACT AND PATENT. PT HAS NEWLY PLACE RIGHT INTERNAL PERMACATH. PT CURRENTLY GETTING DIALYSIS AT THIS TIME. ALL SAFETY MEASURES IN PLACE, BED LOCKED AND IN LOWEST POSITION, SIDE RAILS UP X3, BED ALARM ON, LEFT SOFT WRIST RESTRAINTS RELEASED, NO PULLING NOTED DURING NIGHT, endorsed to umbrella cutter rn for contuity of care
--- NOTE | 2022-11-24 19:30 | NUR ---
RN OPENING NOTE RECEIVED PATIENT IN BED, ASLEEP, BUT AROUSABLE. O2 VIA NC AT 3L, O2 SAT 97%. NO SOB/DISTRESS NOTED. ON TELE MONITOR SHOWING SR, HR 90. IV ACCESS ON RAC S/L INTACT, PATENT, FLUSHING WELL. PT HAS NEWLY PLACED RIGHT INTERNAL PERMACATH. WOUND VAC NOTED DRAINING SEROSANGUINEOUS FLUID. PT CURRENTLY GETTING DIALYSIS AT THIS TIME. ALL SAFETY MEASURES IN PLACE: BED LOCKED AND IN LOWEST POSITION, SIDE RAILS UP X3, BED ALARM ON, LEFT SOFT WRIST RESTRAINTS RELEASED FOR NOW.
--- NOTE | 2022-11-24 20:05 | NUR ---
RN NOTE HD DONE, 1L REMOVED DIALYSIS NURSE.
[2022-11-24] MEDS: NORTRIPTYLINE HCL 10 MG CAPSULE PO SCH (21:23)
[2022-11-24] MEDS: SENNOSIDES 8.6 MG TABLET PO SCH (21:23)
[2022-11-24] MEDS: ATORVASTATIN 10 MG TABLET PO SCH (21:31)
[2022-11-24] MEDS: INSULIN GLARGINE, 100 UNIT/ML CARTRIDGE SQ SCH (21:49)
[2022-11-24] MEDS: INSULIN REGULAR, HUMAN 100 UNIT/ML 3 ML VIAL SQ PRN (21:59)
[2022-11-25] VITALS: BP 145/50
--- NOTE | 2022-11-25 02:38 | NUR ---
RN NOTE HANDOFF REPORT GIVEN TO MARISABEL BENNETT FOR WINSOME
[2022-11-25 04:00] VITALS: BP 101/83
--- NOTE | 2022-11-25 06:42 | NUR ---
RN CLOSING NOTE PT IS ASLEEP & RESTING COMFORTABLY IN BED. A/O X 1-2, RESPONSIVE AND FOLLOWS VERBAL COMMAND. PT IS IN 3LPM O2 VIA NASAL CANNULA W/ NO S & SX OF RESPIRATORY DISTRESS @ THIS TIME. PT IV PRESENT ON RIGHT UPPER ARM SALINE LOCK, PATENT, INTACT AND FLUSHES WELL W/ NO S & SX OF INFILTRATION. PT ON TELE MONITOR W/ CURRENT READING OF SINUS RHYTHM, HR 74BPM. PT RIGHT ANTERIOR CHEST WALL HD CATHETER IS IN PLACE.PT KEPT CLEAN, DRY AND COMFORTABLE. ADMINISTERED MEDICATION ACCORDINGLY PER MD'S ORDER. SAFETY MEASURES IS IN PLACE. BED IN LOWEST AND LOCKED POSITION. SIDE RAILS UP X 4. BEDSIDE TABLE AND CALL LIGHT IS EASY REACH. BED ALARM IS ON. WILL ENDORSE PT TO THE NEXT SHIFT FOR WINSOME.
[2022-11-25 07:11] LABS: BASOPHILS % (AUTO) 0.3 % (0.0-2.0); EOSINOPHILS % (AUTO) 1.9 % (0.0-6.0); HEMATOCRIT 27 % (33-45); HEMOGLOBIN 8.6 g/dL (11.5-14.8); LYMPHOCYTES # (AUTO) 1.5 K/uL (0.8-4.8); LYMPHOCYTES % (AUTO) 9.4 % (20.0-44.0); MEAN CORPUSCULAR HGB CONC 32 g/dl (31.0-36.0); MEAN CORPUSCULAR VOLUME 97 fL (82-100); MONOCYTES # (AUTO) 1.2 K/uL (0.1-1.30); MONOCYTES % (AUTO) 7.9 % (2.0-12.0); NEUTROPHILS # (AUTO) 12.6 K/uL (1.8-8.9); NEUTROPHILS % (AUTO) 80.5 % (43.0-81.0); PLATELET COUNT (AUTO) 349 K/uL (150-450); RED BLOOD CELL COUNT(AUTO) 2.81 MIL/uL (4.0-5.2); WHITE BLOOD COUNT (AUTO) 15.7 K/uL (4.3-11.0)
--- NOTE | 2022-11-25 07:24 | NUR ---
RN OPENING NOTE RECEIVED PT ASLEEP & RESTING COMFORTABLY IN BED. EASILY AROUSABLE. A/O X 1-2, PT IS IN 3LPM O2 VIA NASAL CANNULA W/ NO S & SX OF PAIN OR DISCOMFORT NOTED AT THIS TIME. PT IV PRESENT ON RIGHT UPPER ARM SALINE LOCK, PATENT, INTACT AND FLUSHES WELL W/ NO S & SX OF INFILTRATION. PT ON TELE MONITOR CURRENTLY SINUS RHYTHM, HR 73. RIGHT ANTERIOR CHEST WALL HD CATHETER IS IN PLACE.PT KEPT CLEAN, DRY AND COMFORTABLE. ALL SAFETY MEASURES IS IN PLACE. BED IN LOWEST AND LOCKED POSITION. SIDE RAILS UP X 4. BEDSIDE TABLE AND CALL LIGHT IS EASY REACH. BED ALARM ON.
[2022-11-25 07:27] LABS: CALCIUM, SERUM 9.2 mg/dL (8.5-10.1); CARBON DIOXIDE 25 mmol/L (21-32); CHLORIDE 104 mmol/L (98-107); GLUCOSE 85 mg/dL (74-106); POTASSIUM 4.9 mmol/L (3.5-5.1); SODIUM SERUM 139 mmol/L (136-145); UREA NITROGEN, BLOOD 38 mg/dL (7-18)
[2022-11-25] MEDS: BLOOD SUGAR DIAGNOSTIC 1 EACH STRIP VI SCH ×4 (07:33→22:27)
[2022-11-25 08:00] VITALS: BP 112/88
[2022-11-25] MEDS: ASPIRIN 81 MG TAB.CHEW PO SCH (08:46)
[2022-11-25] MEDS: SEVELAMER CARBONATE 800 MG TABLET PO SCH ×2 (08:46→17:14)
[2022-11-25] MEDS: LEVETIRACETAM (250 MG) 250 MG TABLET PO SCH ×2 (08:46→22:01)
[2022-11-25] MEDS: FERROUS SULFATE (325 MG) 325 MG/TAB TABLET PO SCH (08:46)
[2022-11-25] MEDS: LEVOTHYROXINE SODIUM 50 MCG TABLET PO SCH (08:46)
[2022-11-25] MEDS: VIT B CMPLX 3/FA/VIT C/BIOTIN 1 TAB TABLET PO SCH (08:46)
[2022-11-25] MEDS: GABAPENTIN 100 MG CAPSULE PO SCH ×3 (08:47→16:41)
[2022-11-25] MEDS: ACETAMINOPHEN 325 MG TABLET PO SCH (08:47)
[2022-11-25] MEDS: ZINC SULFATE 220 MG CAPSULE PO SCH (08:47)
[2022-11-25] MEDS: ASCORBIC ACID 500 MG TABLET PO SCH (08:47)
[2022-11-25] MEDS: ALLOPURINOL 100 MG TABLET PO SCH (08:47)
[2022-11-25] MEDS: METOPROLOL TARTRATE 50 MG TABLET PO SCH ×2 (08:49→22:02)
[2022-11-25] MEDS: hydrALAZINE HCL 25 MG TABLET PO SCH ×3 (08:49→16:42)
--- NOTE | 2022-11-25 08:50 | NUR ---
RN NOTE BP MEDICATIONS ON HOLD AT THIS TIME. DUE TO PATIENT CURRENTLY RECEIVING DIALYSIS
[2022-11-25] MEDS: ISOSORBIDE DINITRATE (20MG) 20 MG TABLET PO SCH ×2 (08:54→16:42)
[2022-11-25] MEDS: FAMOTIDINE (20 MG) 20 MG TABLET PO SCH (08:54)
[2022-11-25] MEDS: DOCUSATE SODIUM 100 MG CAPSULE PO SCH ×2 (08:54→16:41)
--- NOTE | 2022-11-25 10:41 | NUR ---
WOUND CARE CONSULT: PT HAS MEDELA NEGATIVE PRESSURE WOUND THERAPY DEVICE TO LEFT ANKLE WITH SMALL AMOUNT OF RED DRAINAGE IN CANISTER. PLAN FOR DRESSING CHANGE TOMORROW.
[2022-11-25] MEDS: PROSOURCE / PROSTAT (PYXIS) 30 ML UDC PO SCH (10:46)
--- NOTE | 2022-11-25 11:34 | NUR ---
rn note dialysis complete. removed 1L. pt tolerating well
[2022-11-25] MEDS: VANCOMYCIN POST DIALYSIS 500MG IV PRN ×2 (11:44)
[2022-11-25 12:00] VITALS: BP 131/52
--- NOTE | 2022-11-25 14:14 | NUR ---
rn note per dr.[email or web address] spears to insert picc on right upper arm.
[2022-11-25 16:00] VITALS: BP 139/56
--- NOTE | 2022-11-25 19:34 | NUR ---
RN CLOSING NOTE PATIENT IN BED. ALERT AND ORIENTED X3. PT ON 2-3 L NASAL CANNULA AT 100%. NO SIGNS OF PAIN OR DISCOMFORT NOTED AT THIS TIME.ON TELE MONITOR SINUS RHYTM 83. PT HAS R UPPER ARM PICC LINE. IV INTACT, PATENT AND FLUSHING WELL. RT UPPER ARM MIDLINE INTACT AND PATENT. RIGHT INTERNAL PERMACATH. DRESSING CLEAN AND DRY. ALL SAFETY MEASURES IN PLACE, BED LOCKED AND IN LOWEST POSITION, SIDE RAILS UP X3, BED ALARM ON. PT HAS SOFT BILATERAL WRIST RESTRAINTS. NO SKIN OR CIRCULATION ISSUES NOTED AT THIS TIME. RELEASED ONE RESTRAINT AT THIS TIME.ENDORSED TO BIOMETRY TEACHER RN FOR CONTUITY OF CARE
--- NOTE | 2022-11-25 19:45 | NUR ---
RN OPENING NOTE RECEIVED PATIENT IN BED; AWAKE, ALERT AND ORIENTED X 1. ON O2 INHALATION @ 3 LPM VIA NASAL CANNULA; TOLERATING WELL. BREATHING EVEN AND NONLABORED. NO C/O PAIN OR DISCOMFORT NOTED AT THIS TIME. WITH IV ACCESS ON RIGHT UPPER ARM, MIDLINE; PATENT, INTACT AND SALINE LOCK. ON TELE MONITORING CURRENTLY SINUS RHYTHM HR-85 BPM. WITH RIGHT ANTERIOR CHEST WALL HD CATHETER; DRESSING C/D/I. SAFETY PRECAUTIONS IMPLEMENTED: HEAD OF BED ELEVATED, CALL LIGHT AND TABLE WITHIN REACH, SIDE RAILS UP X 3, BED IN LOWEST LOCKED POSITION. WILL CONTINUE TO MONITOR THROUGHOUT SHIFT.
[2022-11-25 20:00] VITALS: BP 139/61
[2022-11-25] MEDS: INSULIN GLARGINE, 100 UNIT/ML CARTRIDGE SQ SCH (22:00)
[2022-11-25] MEDS: NORTRIPTYLINE HCL 10 MG CAPSULE PO SCH (22:01)
[2022-11-25] MEDS: SENNOSIDES 8.6 MG TABLET PO SCH (22:01)
[2022-11-25] MEDS: ATORVASTATIN 10 MG TABLET PO SCH (22:01)
--- NOTE | 2022-11-25 22:46 | NUR ---
RN NOTE BLOOD SUGAR CHECKED - 96 MG/DL. INSULIN LANTUS 15 UNITS HELD. WILL CONTINUE TO MONITOR PATIENT.
[2022-11-26] VITALS (8 sets, daily range): BP systolic 118–129; BP diastolic 57–75
--- NOTE | 2022-11-26 07:00 | NUR ---
RN CLOSING NOTE PATIENT IN BED; AWAKE, A/O X 1-2. STILL ON O2 INHALATION @ 3 LPM VIA NASAL CANNULA; WELL TOLERATED. IN NO ACUTE DISTRESS. DENIES ANY PAIN OR DISCOMFORT AT THIS TIME. WITH IV ACCESS ON RIGHT UPPER ARM, MIDLINE; PATENT, INTACT AND SALINE LOCK. ON TELE MONITORING WITH READING OF SINUS RHYTHM HR 85 BPM. WITH RIGHT ANTERIOR CHEST WALL HD CATHETER; DRESSING C/D/I. SAFETY PRECAUTIONS MAINTAINED: HEAD OF BED ELEVATED, CALL LIGHT AND TABLE WITHIN REACH, SIDE RAILS UP X 3, BED IN LOWEST LOCKED POSITION. ENDORSED TO MORNING SHIFT FOR WINSOME.
--- NOTE | 2022-11-26 07:10 | NUR ---
RN OPENING NOTE RECEIVED PT ASLEEP & RESTING COMFORTABLY IN BED. EASILY AROUSABLE. A/O X 1-2, PT IS IN 3LPM O2 VIA NASAL CANNULA W/ NO S & SX OF PAIN OR DISCOMFORT NOTED AT THIS TIME. PATIENT'S IV ON RIGHT UPPER ARM MIDLINE 18G SL, C/D/I. PT ON TELE MONITOR CURRENTLY SINUS RHYTHM, HR 73. RIGHT ANTERIOR CHEST WALL HD CATHETER IS IN PLACE.PT KEPT CLEAN, DRY AND COMFORTABLE. ALL SAFETY MEASURES IS IN PLACE. BED IN LOWEST AND LOCKED POSITION. SIDE RAILS UP X 4. BED ALARM ON. BEDSIDE TABLE AND CALL LIGHT WITHIN REACH.
[2022-11-26 07:28] LABS: BASOPHILS % (AUTO) 0.3 % (0.0-2.0); EOSINOPHILS % (AUTO) 2.3 % (0.0-6.0); HEMATOCRIT 26 % (33-45); HEMOGLOBIN 8.1 g/dL (11.5-14.8); LYMPHOCYTES # (AUTO) 1.2 K/uL (0.8-4.8); LYMPHOCYTES % (AUTO) 12.3 % (20.0-44.0); MEAN CORPUSCULAR HGB CONC 32 g/dl (31.0-36.0); MEAN CORPUSCULAR VOLUME 97 fL (82-100); MONOCYTES # (AUTO) 1.3 K/uL (0.1-1.30); NEUTROPHILS # (AUTO) 7.3 K/uL (1.8-8.9); NEUTROPHILS % (AUTO) 72.1 % (43.0-81.0); PLATELET COUNT (AUTO) 226 K/uL (150-450); RED BLOOD CELL COUNT(AUTO) 2.64 MIL/uL (4.0-5.2); WHITE BLOOD COUNT (AUTO) 10.1 K/uL (4.3-11.0)
[2022-11-26] MEDS: LEVOTHYROXINE SODIUM 50 MCG TABLET PO SCH (07:30)
[2022-11-26] MEDS: FAMOTIDINE (20 MG) 20 MG TABLET PO SCH (07:30)
[2022-11-26 07:42] LABS: CALCIUM, SERUM 8.7 mg/dL (8.5-10.1); CARBON DIOXIDE 28 mmol/L (21-32); CHLORIDE 104 mmol/L (98-107); CREATININE 4.2 mg/dL (0.6-1.3); GLUCOSE 96 mg/dL (74-106); POTASSIUM 4.2 mmol/L (3.5-5.1); SODIUM SERUM 139 mmol/L (136-145); UREA NITROGEN, BLOOD 24 mg/dL (7-18)
[2022-11-26] MEDS: SEVELAMER CARBONATE 800 MG TABLET PO SCH ×2 (08:00→17:02)
[2022-11-26] MEDS: BLOOD SUGAR DIAGNOSTIC 1 EACH STRIP VI SCH ×4 (08:11→22:04)
[2022-11-26] MEDS ORDERED: VANC500P5 IV (10:13)
[2022-11-26] MEDS ORDERED: VANC1VIA34 XX (10:13)
[2022-11-26] MEDS: METOPROLOL TARTRATE 50 MG TABLET PO SCH ×2 (10:54→21:37)
[2022-11-26] MEDS: VIT B CMPLX 3/FA/VIT C/BIOTIN 1 TAB TABLET PO SCH (10:56)
[2022-11-26] MEDS: ISOSORBIDE DINITRATE (20MG) 20 MG TABLET PO SCH ×2 (10:57→17:03)
[2022-11-26] MEDS: ASPIRIN 81 MG TAB.CHEW PO SCH (10:57)
[2022-11-26] MEDS: hydrALAZINE HCL 25 MG TABLET PO SCH ×3 (10:58→17:03)
[2022-11-26] MEDS: FERROUS SULFATE (325 MG) 325 MG/TAB TABLET PO SCH (10:59)
[2022-11-26] MEDS: LEVETIRACETAM (250 MG) 250 MG TABLET PO SCH ×2 (10:59→21:36)
[2022-11-26] MEDS: ZINC SULFATE 220 MG CAPSULE PO SCH (10:59)
[2022-11-26] MEDS: GABAPENTIN 100 MG CAPSULE PO SCH ×3 (10:59→17:03)
[2022-11-26] MEDS: DOCUSATE SODIUM 100 MG CAPSULE PO SCH ×2 (11:00→17:03)
[2022-11-26] MEDS: ASCORBIC ACID 500 MG TABLET PO SCH (11:00)
[2022-11-26] MEDS: ALLOPURINOL 100 MG TABLET PO SCH (11:00)
[2022-11-26] MEDS: ACETAMINOPHEN 325 MG TABLET PO SCH (11:01)
[2022-11-26] MEDS: PROSOURCE / PROSTAT (PYXIS) 30 ML UDC PO SCH (11:02)
--- NOTE | 2022-11-26 12:52 | NUR ---
WOUND CARE FOLLOW UP: PT SEEN FOR REMOVAL OF MEDELA NEGATIVE PRESSURE WOUND THERAPY DEVICE PRIOR TO DISCHARGE. ORDERS FOR DRESSING CHANGE RECEIVED FROM DR KENYON. FRAGILE AREA ON DORSAL FOOT PROTYECTED WITH XEROFORM DRESSING AND WOUND WAS DRESSED WITH SALINE MOISTENED KERLIX, COVERED WITH DRY GAUZE, WRAPPED GENTLY WITH KERLIX AND ALOK WRAP. PAT TOLERATED WELL. VERY SMALL AMT OF RED DRAINAGE NOTED IN DISCARDED MEDELA CANISTER (APPROX 50cc). WOUND VAC TO BE STARTED AT PT'S FACILITY PER COLLECTIONS REP. WOUND MEASUREMENTS ARE 11CM X 2CM X 0.5CM AND WOUND HAS RED GRANULATION TISSUE, SCANT SEROSANGUINOUS DRAINAGE AND NO ODOR.
--- NOTE | 2022-11-26 14:39 | NUR ---
PER SLASHER TENDER PENDING DISCHARGE.
[2022-11-26] MEDS: LORAZEPAM INJ 2 MG/ML VIAL IV PRN (18:44)
--- NOTE | 2022-11-26 19:21 | NUR ---
RN CLOSING NOTE PATIENT IN BED; AWAKE, A/O X 1-2. STILL ON O2 INHALATION @ 3 LPM VIA NASAL CANNULA; WELL TOLERATED. IN NO ACUTE DISTRESS. DENIES ANY PAIN OR DISCOMFORT AT THIS TIME. WITH IV ACCESS ON RIGHT UPPER ARM #18G, MIDLINE; PATENT, INTACT AND SALINE LOCK. ON TELE MONITORING WITH READING OF SINUS RHYTHM HR 84 BPM. WITH RIGHT ANTERIOR CHEST WALL HD CATHETER; DRESSING C/D/I. SAFETY PRECAUTIONS MAINTAINED: HEAD OF BED ELEVATED, CALL LIGHT AND TABLE WITHIN REACH, SIDE RAILS UP X 3, BED IN LOWEST LOCKED POSITION. WILL BE ENDORSED TO PM SHIFT FOR WINSOME.
--- NOTE | 2022-11-26 20:00 | NUR ---
MS RN NOTES RECEIVED LYING ON BED,A/O X1-2,SCREAMING ALL THE TIME,BREATHING NON LABORED,O2 IN USED AT 3L/NC,O2 SAT 98%.ON BOLATERAL SOFT WRIST RESTRAINTS FOR SAFETY,WITH GOOD BLOOD CIRCULATION ON BOTH HANDS.WITH ESETBAN ML FOR MEDS,RIGHT ANTERIOR CHESTWALL HD CATH FOR HD TREATMENT.WILL CONTINUE TO MONITOR STATUS.CALL LIGHT IN REACH,NEEDS ANTICIPATED.
[2022-11-26] MEDS: NORTRIPTYLINE HCL 10 MG CAPSULE PO SCH (21:36)
[2022-11-26] MEDS: ATORVASTATIN 10 MG TABLET PO SCH (21:37)
[2022-11-26] MEDS: SENNOSIDES 8.6 MG TABLET PO SCH (21:38)
--- NOTE | 2022-11-26 22:00 | NUR ---
MS RN NOTES ACCU-CHECK BLOOD SUGAR CHECK 155,COVERED WITH HUMULIN R 2 UNITS,ALONG WITH LANTUS 15 UNITS ORDERED.SNACKS PROVIDED AT BEDSIDE
[2022-11-26] MEDS: *INSULIN REGULAR(HUMULIN R)HUM 100 UNIT/ML VIAL SQ PRN (22:28)
[2022-11-26] MEDS: INSULIN GLARGINE, 100 UNIT/ML CARTRIDGE SQ SCH (22:29)
[2022-11-27 04:00] VITALS: BP 130/61
[2022-11-27 06:44] LABS: BASOPHILS # (AUTO) 0.1 K/uL (0.0-0.2); BASOPHILS % (AUTO) 0.5 % (0.0-2.0); EOSINOPHILS % (AUTO) 2.7 % (0.0-6.0); HEMATOCRIT 23 % (33-45); HEMOGLOBIN 7.6 g/dL (11.5-14.8); LYMPHOCYTES # (AUTO) 1.4 K/uL (0.8-4.8); LYMPHOCYTES % (AUTO) 14.9 % (20.0-44.0); MEAN CORPUSCULAR HGB CONC 32 g/dl (31.0-36.0); MEAN CORPUSCULAR VOLUME 95 fL (82-100); MONOCYTES # (AUTO) 1.1 K/uL (0.1-1.30); MONOCYTES % (AUTO) 11.8 % (2.0-12.0); NEUTROPHILS # (AUTO) 6.7 K/uL (1.8-8.9); NEUTROPHILS % (AUTO) 70.1 % (43.0-81.0); PLATELET COUNT (AUTO) 240 K/uL (150-450); RED BLOOD CELL COUNT(AUTO) 2.46 MIL/uL (4.0-5.2); WHITE BLOOD COUNT (AUTO) 9.5 K/uL (4.3-11.0)
--- NOTE | 2022-11-27 06:45 | NUR ---
MS RN NOTES NO SIGNIFICANT CHANGE IN STATUS,A/O X1-2,RSETRAINTS IN USED,NO FALL,NO INURY,IN NO ACUTE DISTRESS.
[2022-11-27 07:19] LABS: CALCIUM, SERUM 8.9 mg/dL (8.5-10.1); CARBON DIOXIDE 28 mmol/L (21-32); CHLORIDE 103 mmol/L (98-107); CREATININE 3.6 mg/dL (0.6-1.3); GLUCOSE 100 mg/dL (74-106); POTASSIUM 3.9 mmol/L (3.5-5.1); SODIUM SERUM 138 mmol/L (136-145); UREA NITROGEN, BLOOD 21 mg/dL (7-18)
[2022-11-27] MEDS: BLOOD SUGAR DIAGNOSTIC 1 EACH STRIP VI SCH ×4 (07:29→22:31)
--- NOTE | 2022-11-27 07:30 | NUR ---
OPENING NOTE RECEIVED PATIENT IN BED ASLEEP BUT AROUSABLE, NO SIGNS OF IN DISTRESS, NO COMPLAINT OF PAIN, UNLABORED BREATHING ON 3L/MIN O2, SAFETY MEASURES IN PLACED, BED IN LOW POSITION LOCKED, SIDE RAILS UPX3, CALL LIGHT WITHIN REACHED.
[2022-11-27] MEDS: FAMOTIDINE (20 MG) 20 MG TABLET PO SCH (07:49)
[2022-11-27] MEDS: LEVOTHYROXINE SODIUM 50 MCG TABLET PO SCH (07:50)
[2022-11-27] MEDS: SEVELAMER CARBONATE 800 MG TABLET PO SCH ×2 (07:51→16:59)
[2022-11-27 08:00] VITALS: BP 135/61
[2022-11-27] MEDS: ISOSORBIDE DINITRATE (20MG) 20 MG TABLET PO SCH ×2 (08:53→16:27)
[2022-11-27] MEDS: DOCUSATE SODIUM 100 MG CAPSULE PO SCH ×2 (08:53→16:27)
[2022-11-27] MEDS: LEVETIRACETAM (250 MG) 250 MG TABLET PO SCH ×2 (08:53→21:28)
[2022-11-27] MEDS: hydrALAZINE HCL 25 MG TABLET PO SCH ×3 (08:54→16:28)
[2022-11-27] MEDS: FERROUS SULFATE (325 MG) 325 MG/TAB TABLET PO SCH (08:54)
[2022-11-27] MEDS: ACETAMINOPHEN 325 MG TABLET PO SCH (08:54)
[2022-11-27] MEDS: ZINC SULFATE 220 MG CAPSULE PO SCH (08:55)
[2022-11-27] MEDS: ASPIRIN 81 MG TAB.CHEW PO SCH (08:55)
[2022-11-27] MEDS: GABAPENTIN 100 MG CAPSULE PO SCH ×3 (08:55→16:28)
[2022-11-27] MEDS: ALLOPURINOL 100 MG TABLET PO SCH (08:55)
[2022-11-27] MEDS: VIT B CMPLX 3/FA/VIT C/BIOTIN 1 TAB TABLET PO SCH (08:55)
[2022-11-27] MEDS: PROSOURCE / PROSTAT (PYXIS) 30 ML UDC PO SCH (08:56)
[2022-11-27] MEDS: ASCORBIC ACID 500 MG TABLET PO SCH (08:56)
[2022-11-27] MEDS: METOPROLOL TARTRATE 50 MG TABLET PO SCH ×2 (08:57→21:00)
[2022-11-27] MEDS: VANCOMYCIN POST DIALYSIS 500MG IV PRN ×2 (10:23)
[2022-11-27 16:00] VITALS: BP 127/61
[2022-11-27] MEDS: LORAZEPAM INJ 2 MG/ML VIAL IV PRN (18:14)
--- NOTE | 2022-11-27 19:05 | NUR ---
MS RN OPENING NOTE PATIENT IS LYING IN HER BED SCREAMING. SHE IS VERY AGITATED. TALKED WITH THE PT AND TRIED TO CALM HER DOWN. PT STILL SCREAMING. SHE IS ALERT, A/O X 1-2. PT IS ON 3LPM O2 VIA NASAL CANNULA, TOLERATED WELL. NO S/S OF DISTRESS OR SOB. PT DENIES OF HAVING PAIN AT THIS MOMENT. PATIENT'S IV IS AT HER RIGHT UPPER ARM, MIDLINE, #18G; SL. FLUSHED WELL WITH 10 CC OF NS. IV SITE IS C/D/I. ON RIGHT ANTERIOR CHEST WALL, PT HAS THE HD CATHETER , THE SITE IS IS CLEAN, DRY AND INTACT. ALL SAFETY MEASURES ARE IN PLACE: BED IN LOWEST AND LOCKED POSITION; SIDE RAILS UP X 2; BED ALARM IS ON; CALL LIGHT AND BEDSIDE TABLE ARE WITHIN REACH. WILL CONTINUE MONITORING THE PT AND PROVIDE THE CARE PT NEEDS.
--- NOTE | 2022-11-27 19:28 | NUR ---
CLOSING NOTE PATIENT IS IN BED ASLEEP BUT RESPONSE TO STIMULI, NO SIGNS OF IN DISTRESS, NO COMPLAINT OF PAIN, SAFETY MEASURES ARE IN PLACE, BED IN LOW POSITION LOCKED, SIDE RAILS UPX3, CALL LIGHT WITHIN REACHED.
[2022-11-27 20:00] VITALS: BP 90/54
[2022-11-27] MEDS: SENNOSIDES 8.6 MG TABLET PO SCH (21:28)
[2022-11-27] MEDS: ATORVASTATIN 10 MG TABLET PO SCH (21:28)
[2022-11-27] MEDS: NORTRIPTYLINE HCL 10 MG CAPSULE PO SCH (21:28)
--- NOTE | 2022-11-27 21:34 | NUR ---
CAR SALESMAN NOTE PT HAD HD TODAY, OUTPUT WAS 1.5 L. PT'S BP IS 90/54, HR IS 79. SCHEDULED MEDICATION, 50 MG LOPRESSOR, WAS HELD DUE TO LOW BP. CHARGE NURSE, ANDRES,NOTIFIED.
[2022-11-27] MEDS: INSULIN GLARGINE, 100 UNIT/ML CARTRIDGE SQ SCH (22:32)
[2022-11-28] VITALS: BP 93/62
[2022-11-28 04:00] VITALS: BP 137/57
--- NOTE | 2022-11-28 06:31 | NUR ---
MS SABRINA ANGEL NOTE PATIENT IS SLEEPING IN BED, EASILY BEING AROUSED. SHE IS ALERT, A/O X 1-2. . PT IS ON 3LPM O2 VIA NASAL CANNULA, TOLERATED WELL. NO S/S OF DISTRESS OR SOB. PT DENIES OF HAVING PAIN AT THIS MOMENT. PATIENT'S IV IS AT HER RIGHT UPPER ARM, MIDLINE, #18G; SL. FLUSHED WELL WITH 10 CC OF NS. IV SITE IS C/D/I. ON RIGHT ANTERIOR CHEST WALL, PT HAS THE HD CATHETER , THE SITE IS IS CLEAN, DRY AND INTACT. ALL SAFETY MEASURES ARE IN PLACE: BED IN LOWEST AND LOCKED POSITION; SIDE RAILS UP X 2; BED ALARM IS ON; CALL LIGHT AND BEDSIDE TABLE ARE WITHIN REACH. WILL ENDORSE NEXT SHIFT NURSE FOR CONTINUING PT CARE.
--- NOTE | 2022-11-28 07:30 | NUR ---
PT RECEIVED RESTING COMFORTABLY IN BED. NO S/S OR C/O PAIN OR DISTRESS NOTED. SIDERAILS UP X2, CALL LIGHT LEFT WITHIN REACH. WILL CONTINUE PLAN OF CARE.
[2022-11-28 08:00] VITALS: BP 117/55
[2022-11-28] MEDS: SEVELAMER CARBONATE 800 MG TABLET PO SCH ×2 (08:00→16:30)
[2022-11-28] MEDS: LEVOTHYROXINE SODIUM 50 MCG TABLET PO SCH (08:54)
[2022-11-28] MEDS: FERROUS SULFATE (325 MG) 325 MG/TAB TABLET PO SCH (08:54)
[2022-11-28] MEDS: ASCORBIC ACID 500 MG TABLET PO SCH (08:55)
[2022-11-28] MEDS: ASPIRIN 81 MG TAB.CHEW PO SCH (08:56)
[2022-11-28] MEDS: ALLOPURINOL 100 MG TABLET PO SCH (08:56)
[2022-11-28] MEDS: ZINC SULFATE 220 MG CAPSULE PO SCH (08:56)
[2022-11-28] MEDS: VIT B CMPLX 3/FA/VIT C/BIOTIN 1 TAB TABLET PO SCH (08:56)
[2022-11-28] MEDS: PROSOURCE / PROSTAT (PYXIS) 30 ML UDC PO SCH (08:56)
[2022-11-28] MEDS: FAMOTIDINE (20 MG) 20 MG TABLET PO SCH (08:56)
[2022-11-28] MEDS: ACETAMINOPHEN 325 MG TABLET PO SCH (08:56)
[2022-11-28] MEDS: BLOOD SUGAR DIAGNOSTIC 1 EACH STRIP VI SCH ×4 (08:57→21:56)
[2022-11-28] MEDS: hydrALAZINE HCL 25 MG TABLET PO SCH ×3 (08:59→16:28)
[2022-11-28] MEDS: DOCUSATE SODIUM 100 MG CAPSULE PO SCH ×2 (09:00→16:29)
[2022-11-28] MEDS: LEVETIRACETAM (250 MG) 250 MG TABLET PO SCH ×2 (09:00→21:54)
[2022-11-28] MEDS: ISOSORBIDE DINITRATE (20MG) 20 MG TABLET PO SCH ×2 (09:00→16:29)
[2022-11-28] MEDS: METOPROLOL TARTRATE 50 MG TABLET PO SCH ×2 (09:00→21:55)
[2022-11-28] MEDS: GABAPENTIN 100 MG CAPSULE PO SCH ×3 (09:00→16:30)
[2022-11-28 14:47] LABS: BASOPHILS # (AUTO) 0.1 K/uL (0.0-0.2); EOSINOPHILS % (AUTO) 3.7 % (0.0-6.0); HEMATOCRIT 24 % (33-45); HEMOGLOBIN 7.5 g/dL (11.5-14.8); LYMPHOCYTES # (AUTO) 1.4 K/uL (0.8-4.8); LYMPHOCYTES % (AUTO) 16.2 % (20.0-44.0); MEAN CORPUSCULAR HGB CONC 31 g/dl (31.0-36.0); MEAN CORPUSCULAR VOLUME 97 fL (82-100); MONOCYTES # (AUTO) 1.1 K/uL (0.1-1.30); MONOCYTES % (AUTO) 12.5 % (2.0-12.0); NEUTROPHILS # (AUTO) 5.9 K/uL (1.8-8.9); NEUTROPHILS % (AUTO) 66.6 % (43.0-81.0); PLATELET COUNT (AUTO) 237 K/uL (150-450); RED BLOOD CELL COUNT(AUTO) 2.46 MIL/uL (4.0-5.2); WHITE BLOOD COUNT (AUTO) 8.8 K/uL (4.3-11.0)
[2022-11-28 15:04] LABS: CALCIUM, SERUM 9.1 mg/dL (8.5-10.1); CARBON DIOXIDE 28 mmol/L (21-32); CHLORIDE 100 mmol/L (98-107); CREATININE 3.6 mg/dL (0.6-1.3); GLUCOSE 94 mg/dL (74-106); POTASSIUM 3.8 mmol/L (3.5-5.1); SODIUM SERUM 134 mmol/L (136-145); UREA NITROGEN, BLOOD 20 mg/dL (7-18)
[2022-11-28 16:00] VITALS: BP 117/56
[2022-11-28] MEDS ORDERED: ALBUMIN 25% 25 GM in PREMIX 1 EA IV PRN (16:00)
--- NOTE | 2022-11-28 17:00 | NUR ---
MED HELD INSULIN DUE TO PATIENT SLEEPING DURING DIALYSIS. WILL CONTINUE TO MONITOR.
[2022-11-28] MEDS: VANCOMYCIN POST DIALYSIS 500MG IV PRN ×2 (18:06)
--- NOTE | 2022-11-28 18:44 | NUR ---
CHANGE OF SHIFT REPORT PATIENT RESTING COMFORTABLY IN BED. NO S/S OR C/O PAIN OR DISTRESS NOTED. SIDE RAILS UP X2, CALL LIGHT LEFT WITHIN REACH. PT KEPT CLEAN, DRY, AND COMFORTABLE. NO SIGNIFICANT CHANGES SINCE PREVIOUS SHIFT. WILL GIVE REPORT TO DIAZ BENNETT.
--- NOTE | 2022-11-28 19:10 | NUR ---
MOLDER HAND opening note Received pt resting in bed, awake, in stable condition, breathing even and unlabored, denies any pain at this time, will continue to monitor
[2022-11-28 20:00] VITALS: BP 121/54
[2022-11-28] MEDS: SENNOSIDES 8.6 MG TABLET PO SCH (21:54)
[2022-11-28] MEDS: ATORVASTATIN 10 MG TABLET PO SCH (21:54)
[2022-11-28] MEDS: NORTRIPTYLINE HCL 10 MG CAPSULE PO SCH (21:54)
[2022-11-28 21:55] LABS: BAND % (MANUAL) 2 % (0.0-5.0); EOSINOPHILS % (MANUAL) 2 % (0-4); LYMPHOCYTES % (MANUAL) 23 % (16-48); MONOCYTES % (MANUAL) 7 % (0-11.0); NEUTROPHILS % (MANUAL) 66 (42-76)
[2022-11-28] MEDS: INSULIN GLARGINE, 100 UNIT/ML CARTRIDGE SQ SCH (21:56)
[2022-11-28] MEDS: *INSULIN REGULAR(HUMULIN R)HUM 100 UNIT/ML VIAL SQ PRN (22:03)
[2022-11-29 04:00] VITALS: BP 110/87
--- NOTE | 2022-11-29 06:34 | NUR ---
HATCHERY ATTENDANT closing note pt resting in bed, awake, in stable condition, breathing even and unlabored, 0 c/o pain, all due meds given per MD orders, tolerated well, all basic needs met and anticipated, bed bath rendered well, all safety measures in place, will continue to monitor
--- NOTE | 2022-11-29 07:20 | NUR ---
METAL LATHER OPENING NOTE PATIENT A/A/O/X 3. PATIENT GET CONFUSED AT TIMES. O2 SAT IN ROOM AIR 96%, NO RESPIRATORY DISTRESS NOTED. PATIENT REFUSED TO USE 02. HOB ELEVATED SEMI [place]FIELD POSITION. RIGHT CHEST DIALYSIS CATHETER DRESSING D/C/I. PATIENT WILL HAVE DIALYSIS TODAY. PATIENT VERBALIZED UNDERSTANDING INFORMATION. ON BED REST, REFUSING TO EAT RENAL DIET (PUREE) SHE WANTS REAL FOOD. MD NOTIFIED. SAFETY MEASURES IN PLACE, BED LOCKED TO THE LOWEST POSITION, CALL LIGHT, TABLE WITHIN REACH. SIDE RAILS ELEVATED X3. CONT. TO MONITOR.
[2022-11-29] MEDS: FAMOTIDINE (20 MG) 20 MG TABLET PO SCH (07:30)
[2022-11-29 07:45] LABS: BASOPHILS % (AUTO) 0.6 % (0.0-2.0); EOSINOPHILS % (AUTO) 2.8 % (0.0-6.0); HEMATOCRIT 24 % (33-45); HEMOGLOBIN 7.4 g/dL (11.5-14.8); LYMPHOCYTES # (AUTO) 1.4 K/uL (0.8-4.8); LYMPHOCYTES % (AUTO) 15.2 % (20.0-44.0); MEAN CORPUSCULAR HGB CONC 31 g/dl (31.0-36.0); MEAN CORPUSCULAR VOLUME 97 fL (82-100); MONOCYTES # (AUTO) 1.1 K/uL (0.1-1.30); MONOCYTES % (AUTO) 12.8 % (2.0-12.0); NEUTROPHILS # (AUTO) 6.1 K/uL (1.8-8.9); NEUTROPHILS % (AUTO) 68.6 % (43.0-81.0); PLATELET COUNT (AUTO) 216 K/uL (150-450); RED BLOOD CELL COUNT(AUTO) 2.44 MIL/uL (4.0-5.2); WHITE BLOOD COUNT (AUTO) 8.9 K/uL (4.3-11.0)
[2022-11-29 08:00] VITALS: BP 110/87
[2022-11-29 08:01] LABS: CALCIUM, SERUM 9.1 mg/dL (8.5-10.1); CARBON DIOXIDE 23 mmol/L (21-32); CHLORIDE 105 mmol/L (98-107); CREATININE 3.3 mg/dL (0.6-1.3); GLUCOSE 69 mg/dL (74-106); POTASSIUM 3.9 mmol/L (3.5-5.1); SODIUM SERUM 136 mmol/L (136-145); UREA NITROGEN, BLOOD 17 mg/dL (7-18)
[2022-11-29] MEDS: LEVOTHYROXINE SODIUM 50 MCG TABLET PO SCH (08:38)
[2022-11-29] MEDS: SEVELAMER CARBONATE 800 MG TABLET PO SCH ×2 (08:38→18:00)
[2022-11-29] MEDS: BLOOD SUGAR DIAGNOSTIC 1 EACH STRIP VI SCH ×4 (08:39→22:47)
[2022-11-29] MEDS: ASCORBIC ACID 500 MG TABLET PO SCH (09:00)
[2022-11-29] MEDS: METOPROLOL TARTRATE 50 MG TABLET PO SCH ×2 (09:00→21:00)
[2022-11-29] MEDS: ISOSORBIDE DINITRATE (20MG) 20 MG TABLET PO SCH ×2 (09:00→17:00)
[2022-11-29] MEDS: FERROUS SULFATE (325 MG) 325 MG/TAB TABLET PO SCH (09:00)
[2022-11-29] MEDS: hydrALAZINE HCL 25 MG TABLET PO SCH ×3 (09:00→17:00)
--- NOTE | 2022-11-29 09:00 | NUR ---
METERS SUPERINTENDENT NOTES MEDICATIONS RELATED TO B/P ON HOLD PER DIALYSIS NURSE. PATIENT WILL HAVE DIALYSIS TODAY. PATIENT TOOK FEW PO MEDS THIS AM. SHE WILL TAKE THEM LATER UPON SHE HAS HER REAL FOOD LUNCH. CONT. TO MONITOR
--- NOTE | 2022-11-29 10:07 | NUR ---
WOUND CARE FOLLOW UP: PT WAS NOT DISCHARGED ON 11/26 AND REMAINS IN HOSPITAL. PT WAS SEEN AT 0730 THIS AM AND WOUND ON LEFT LOWER LEG RE-ASSESSED AND PHOTOS TAKEN. DR KENYON NOTIFIED. NEW ORDERS RECEIVED FOR WOUND TREATMENT. DISCUSSED WITH NURSING STAFF, UTILITY SALES REPRESENTATIVE AND PATENT PROSECUTION ATTORNEY.
[2022-11-29] MEDS: ACETAMINOPHEN 325 MG TABLET PO SCH (11:46)
[2022-11-29] MEDS: ALLOPURINOL 100 MG TABLET PO SCH (11:47)
[2022-11-29] MEDS: PROSOURCE / PROSTAT (PYXIS) 30 ML UDC PO SCH (11:52)
[2022-11-29] MEDS: ASPIRIN 81 MG TAB.CHEW PO SCH (11:53)
[2022-11-29] MEDS: ZINC SULFATE 220 MG CAPSULE PO SCH (12:06)
[2022-11-29] MEDS: VIT B CMPLX 3/FA/VIT C/BIOTIN 1 TAB TABLET PO SCH (12:06)
[2022-11-29] MEDS: GABAPENTIN 100 MG CAPSULE PO SCH ×3 (12:07→17:00)
[2022-11-29] MEDS: LEVETIRACETAM (250 MG) 250 MG TABLET PO SCH ×2 (12:07→20:17)
[2022-11-29] MEDS: DOCUSATE SODIUM 100 MG CAPSULE PO SCH ×2 (12:08→17:00)
--- NOTE | 2022-11-29 14:12 | NUR ---
RETAIL SALESWORKER NOTE PATIENT JUST COMPLETED DIALYSIS, PER DIALYSIS NURSE WAS 2L OUT. PATIENT SLEEPING POST DIALYSIS, RESTING COMFORTABLE. PATIENT WILL HAVE VANCOMYCIN IV AFTER DIALYSIS.
--- NOTE | 2022-11-29 14:30 | NUR ---
UROGYNECOLOGY PHYSICIAN NOTE VANCOMYCIN LEVEL PRIOR PATIENT HAD DIALYSIS WAS 22. PER PHARMACY SAID, NO VANCOMYCIN TODAY.
[2022-11-29 16:00] VITALS: BP 139/56
--- NOTE | 2022-11-29 17:00 | NUR ---
CONSTRUCTION PRODUCER NOTE PATIENT SLEEPING POST DIALYSIS. UNABLE TO TAKE AFTERNOON PILLS.
--- NOTE | 2022-11-29 19:00 | NUR ---
ADVANCED MANUFACTURING TECHNICIAN CLOSING NOTE PATIENT A/A/Ox 3, REFUSING TO KEEP 02 N/C, O2 SAT =95%, NO RESPIRATORY DISTRESS NOTED. HOB ELEVATED, SAFETY MEASURES IN PLACE, BED LOCK TO THE LOWEST POSITION, CALL LIGHT, TABLE WITHIN REACH. DENIES PAIN. ENDORSED TO THE FOLLOWING NURSE.
[2022-11-29 20:00] VITALS: BP 75/50
[2022-11-29] MEDS: NORTRIPTYLINE HCL 10 MG CAPSULE PO SCH (21:41)
[2022-11-29] MEDS: ATORVASTATIN 10 MG TABLET PO SCH (21:42)
[2022-11-29] MEDS: SENNOSIDES 8.6 MG TABLET PO SCH (21:42)
[2022-11-29] MEDS: INSULIN GLARGINE, 100 UNIT/ML CARTRIDGE SQ SCH (22:55)
[2022-11-30 04:00] VITALS: BP 110/70
[2022-11-30 06:33] LABS: BASOPHILS % (AUTO) 0.4 % (0.0-2.0); EOSINOPHILS % (AUTO) 2.1 % (0.0-6.0); HEMATOCRIT 22 % (33-45); HEMOGLOBIN 7.1 g/dL (11.5-14.8); LYMPHOCYTES # (AUTO) 1.5 K/uL (0.8-4.8); LYMPHOCYTES % (AUTO) 14.6 % (20.0-44.0); MEAN CORPUSCULAR HGB CONC 33 g/dl (31.0-36.0); MEAN CORPUSCULAR VOLUME 96 fL (82-100); MONOCYTES # (AUTO) 1.2 K/uL (0.1-1.30); MONOCYTES % (AUTO) 11.8 % (2.0-12.0); NEUTROPHILS # (AUTO) 7.2 K/uL (1.8-8.9); NEUTROPHILS % (AUTO) 71.1 % (43.0-81.0); PLATELET COUNT (AUTO) 225 K/uL (150-450); RED BLOOD CELL COUNT(AUTO) 2.25 MIL/uL (4.0-5.2); WHITE BLOOD COUNT (AUTO) 10.2 K/uL (4.3-11.0)
[2022-11-30 06:58] LABS: CALCIUM, SERUM 8.6 mg/dL (8.5-10.1); CARBON DIOXIDE 24 mmol/L (21-32); CHLORIDE 106 mmol/L (98-107); CREATININE 3.5 mg/dL (0.6-1.3); GLUCOSE 91 mg/dL (74-106); POTASSIUM 4.1 mmol/L (3.5-5.1); SODIUM SERUM 137 mmol/L (136-145); UREA NITROGEN, BLOOD 20 mg/dL (7-18)
--- NOTE | 2022-11-30 07:35 | NUR ---
RN OPENING NOTES: RECEIVED PATIENT AWAKE, A/OX2-3. PT IS ON RA, NO S/S OF DISTRESS OR SOB. PT DENIES PAIN AT THIS TIME. IV ACCESS AT R UA #18 ML, SL, PATENT AND FLUSHING WELL. ON RIGHT ANTERIOR CHEST WALL, PT HAS THE HD CATHETER , THE SITE IS IS CLEAN, DRY AND INTACT. L ANKLE DRESSING NOTED, CDI. ALL SAFETY MEASURES ARE IN PLACE: BED IN LOWEST AND LOCKED POSITION; SIDE RAILS UP X 2; BED ALARM IS ON; CALL LIGHT TABLE WITHIN REACH, WILL CONT WITH PLAN OF CARE DURING SHIFT.
[2022-11-30 08:00] VITALS: BP 128/78
[2022-11-30] MEDS: BLOOD SUGAR DIAGNOSTIC 1 EACH STRIP VI SCH ×3 (08:01→17:22)
[2022-11-30] MEDS: ACETAMINOPHEN 325 MG TABLET PO SCH (08:16)
[2022-11-30] MEDS: ALLOPURINOL 100 MG TABLET PO SCH (08:17)
[2022-11-30] MEDS: METOPROLOL TARTRATE 50 MG TABLET PO SCH (08:17)
[2022-11-30] MEDS: SEVELAMER CARBONATE 800 MG TABLET PO SCH ×2 (08:18→17:22)
[2022-11-30] MEDS: FAMOTIDINE (20 MG) 20 MG TABLET PO SCH (08:18)
[2022-11-30] MEDS: DOCUSATE SODIUM 100 MG CAPSULE PO SCH ×2 (08:18→17:22)
[2022-11-30] MEDS: FERROUS SULFATE (325 MG) 325 MG/TAB TABLET PO SCH (08:18)
[2022-11-30] MEDS: ZINC SULFATE 220 MG CAPSULE PO SCH (08:18)
[2022-11-30] MEDS: GABAPENTIN 100 MG CAPSULE PO SCH ×3 (08:18→17:21)
[2022-11-30] MEDS: VIT B CMPLX 3/FA/VIT C/BIOTIN 1 TAB TABLET PO SCH (08:19)
[2022-11-30] MEDS: ISOSORBIDE DINITRATE (20MG) 20 MG TABLET PO SCH ×2 (08:19→17:21)
[2022-11-30] MEDS: hydrALAZINE HCL 25 MG TABLET PO SCH ×3 (08:19→17:21)
[2022-11-30] MEDS: LEVETIRACETAM (250 MG) 250 MG TABLET PO SCH (08:19)
[2022-11-30] MEDS: LEVOTHYROXINE SODIUM 50 MCG TABLET PO SCH (08:20)
[2022-11-30] MEDS: ASPIRIN 81 MG TAB.CHEW PO SCH (08:20)
[2022-11-30] MEDS: ASCORBIC ACID 500 MG TABLET PO SCH (08:21)
[2022-11-30] MEDS: PROSOURCE / PROSTAT (PYXIS) 30 ML UDC PO SCH (08:22)
--- NOTE | 2022-11-30 11:15 | NUR ---
PER BREAKER HAND NEED TO PLACE BACK WOUND VAC ,PER JONNY WOUND CARE NURSE IT IS LIABILITY AND SHE SPOKE WITH DR. FINLEY NOT TO PUT IT BACK.SHE WILL CONCUR WITH
[2022-11-30] MEDS: INSULIN REGULAR, HUMAN 100 UNIT/ML 3 ML VIAL SQ PRN ×2 (12:10→18:26)
[2022-11-30] MEDS: LORAZEPAM INJ 2 MG/ML VIAL IV PRN (13:07)
--- NOTE | 2022-11-30 13:10 | NUR ---
RN NOTES: PT GIVEN 1MG ATIVAN IVP. PT WAS BECOMING AGITATED BANGING CALL LIGHT ON THE TABLE, STATES DOCTOR SAID SHE CAN GO HOME, RN EXPLAINED THE JONNY FOR WOUND VACC IS PENDING AND WE ARE STILL WAITING FOR CALL FROM CM, PT REMAINED UPSET MEDICATION EXPLAINED TO PT, IS AGREEABLE, WILL CONT TO MONITOR
[2022-11-30] MEDS ORDERED: EPOETIN ALFA (4000 UNIT) 4,000 UNIT/ML VIAL IV SCH (15:30)
[2022-11-30 16:00] VITALS: BP 117/51
[2022-11-30 17:21] VITALS: BP 117/51
--- NOTE | 2022-11-30 18:08 | NUR ---
RN CLOSING NOTES: PATIENT ASLEEP EASILY ROUSED, A/OX2-3. PT IS ON RA, NO S/S OF DISTRESS OR SOB. PT DENIES PAIN AT THIS TIME. IV ACCESS AT R UA #18 ML, SL, PATENT AND FLUSHING WELL. ON RIGHT ANTERIOR CHEST WALL, PT HAS THE HD CATHETER , THE SITE IS IS CLEAN, DRY AND INTACT. L ANKLE DRESSING NOTED, CDI. KEPT PT CLEAN, DRY AND COMFORTABLE, DUE MEDS GIVEN, NEEDS MET. ALL DC DOCUMENTS PRINTED, BELONGINGS ACCOUNTED FOR, DOCS SIGNED. THIS RN CALLED [facility], GAVE REPORT TO MARV, RN. AMBULANCE IS RUNNING LATE, RHYTHMIC GYMNASTICS COACH WAS SUPPOSED TO BE @ 1630. ALL SAFETY MEASURES ARE IN PLACE: BED IN LOWEST AND LOCKED POSITION; SIDE RAILS UP X 2; BED ALARM IS ON; CALL LIGHT TABLE WITHIN REACH, WILL ENDORSE TO PM SHIFT.
--- NOTE | 2022-11-30 18:15 | NUR ---
RN NOTES- [facility] CAME TO [facility] PT HOWEVER THEY DIDN'T BARIATRIC GURNEY, WILL COME BACK AFTER 45MINS PER EMT.
--- NOTE | 2022-11-30 19:19 | NUR ---
RN DC NOTES: PT IS AWAKE, A/OX2-3, VITALS STABLE, ON RA WITH NO S/S OF SOB. PT LEFT UNIT VIA BARIATRIC GURNEY, AMBULANCE IS [facility] #[facility], GAVE REPORT TO EMT. R UPPER ARM MIDLINE REMAINED IN PLACE FOR IV ANTIBIOTICS AFTER DC.
== END 2022-11-30 19:15 | DRG 492 ==
LOC: ER 16:01 → MEDSG1 11-17 02:30 → TELE1 11-17 03:13 → MEDSG1 11-26 16:10
PROVIDERS: ADMIT Student in an Organized Health Care Education/Training Program; ATTEND Nurse Practitioner Acute Care
PROC: 5A1D70Z Performance of Urinary Filtration, Intermittent, Less than 6 Hours Per Day (ICD-10-PCS; principal; 2022-11-17)
PROC: 0KBT0ZZ Excision of Left Lower Leg Muscle, Open Approach (ICD-10-PCS; 2022-11-20)
PROC: 05HB33Z Insertion of Infusion Device into Right Basilic Vein, Percutaneous Approach (ICD-10-PCS; 2022-11-21)
PROC: 0QBK0ZZ Excision of Left Fibula, Open Approach (ICD-10-PCS; 2022-11-23)
PROC: 0QPK04Z Removal of Internal Fixation Device from Left Fibula, Open Approach (ICD-10-PCS; 2022-11-23)
PROC: 0JH63XZ Insertion of Tunneled Vascular Access Device into Chest Subcutaneous Tissue and Fascia, Percutaneous Approach (ICD-10-PCS; 2022-11-24)
PROC: 05HM33Z Insertion of Infusion Device into Right Internal Jugular Vein, Percutaneous Approach (ICD-10-PCS; 2022-11-24)
PROC: B513YZA Fluoroscopy of Right Jugular Veins using Other Contrast, Guidance (ICD-10-PCS; 2022-11-24)
PROC: 02HV33Z Insertion of Infusion Device into Superior Vena Cava, Percutaneous Approach (ICD-10-PCS; 2022-11-25)
PROC: B548ZZA Ultrasonography of Superior Vena Cava, Guidance (ICD-10-PCS; 2022-11-25)
PROC: 05HB33Z Insertion of Infusion Device into Right Basilic Vein, Percutaneous Approach (ICD-10-PCS; 2022-11-25)
DX: T84.098A Other mechanical complication of other internal joint prosthesis, initial encounter (principal); A41.9 Sepsis, unspecified organism; N18.6 End stage renal disease; E87.1 Hypo-osmolality and hyponatremia; L97.329 Non-pressure chronic ulcer of left ankle with unspecified severity; I13.2 Hypertensive heart and chronic kidney disease with heart failure and with stage 5 chronic kidney disease, or end stage renal disease; Z68.43 Body mass index [BMI] 50.0-59.9, adult; L03.115 Cellulitis of right lower limb; J98.11 Atelectasis; E87.20 Acidosis, unspecified; T82.510A Breakdown (mechanical) of surgically created arteriovenous fistula, initial encounter; E11.51 Type 2 diabetes mellitus with diabetic peripheral angiopathy without gangrene; I70.201 Unspecified atherosclerosis of native arteries of extremities, right leg; I50.9 Heart failure, unspecified; E11.22 Type 2 diabetes mellitus with diabetic chronic kidney disease; L89.529 Pressure ulcer of left ankle, unspecified stage; Y83.8 Other surgical procedures as the cause of abnormal reaction of the patient, or of later complication, without mention of misadventure at the time of the procedure; Y92.129 Unspecified place in nursing home as the place of occurrence of the external cause; I07.1 Rheumatic tricuspid insufficiency; K21.9 Gastro-esophageal reflux disease without esophagitis; E03.9 Hypothyroidism, unspecified; Z79.4 Long term (current) use of insulin; Z79.01 Long term (current) use of anticoagulants; Z79.899 Other long term (current) drug therapy; Z79.82 Long term (current) use of aspirin; E11.622 Type 2 diabetes mellitus with other skin ulcer; E87.5 Hyperkalemia; Z53.9 Procedure and treatment not carried out, unspecified reason; E66.01 Morbid (severe) obesity due to excess calories; Z87.81 Personal history of (healed) traumatic fracture; Z99.2 Dependence on renal dialysis; Z74.01 Bed confinement status; M89.8X9 Other specified disorders of bone, unspecified site; K57.30 Diverticulosis of large intestine without perforation or abscess without bleeding; K42.9 Umbilical hernia without obstruction or gangrene; I70.0 Atherosclerosis of aorta; G47.33 Obstructive sleep apnea (adult) (pediatric); B95.61 Methicillin susceptible Staphylococcus aureus infection as the cause of diseases classified elsewhere; D63.8 Anemia in other chronic diseases classified elsewhere; D50.9 Iron deficiency anemia, unspecified; G93.89 Other specified disorders of brain
CPT/HCPCS: 36410; 36415; 36569; 36600; 70450-TC; 71045-TC; 73600-TC; 80048-TC; 80061-TC; 80076-TC; 80202-TC; 82140-TC; 82728-TC; 82962-TC; 83540-TC; 83735-TC; 84100-TC; 84443-TC; 85025-TC; 85610-TC; 85652-TC; 85730-TC; 86140-TC; 86706; 86850-TC; 87040-TC; 87081-TC; 87340; 90935-TC; 93307-TC; A4216; A4223; A6253; A6403; C1750; C1769; C9803; G0378; J0690; J0692; J1644; J1815; J2060; J2185; J2370; J2405; J2704; J2765; J3010; J3370; J3475; J3490; J7030; J7050; J7060; P9047; Q9967

== ENCOUNTER 2023-03-26 18:13 | Inpatient (IN) | payer OTHER ==
[~2023-03-26] VITALS: Ht 157.5 cm; Wt 122.5 kg
[~2023-03-26 18:13] MED LIST changes: +ACET-2605 PO; +ACET325T53 PO; +AMIN30LI2 PO; +ASCO500T10 PO; +ASPI-1169 PO; +BISA10SU61 RC; -CLOP75TA15 PO; +FAMO20TA8 PO; +FERR325T23 PO; +FOLI0.8T2 PO; +HEPA50007 SQ; +HYDR-4076 PO; +HYDR-4303 PO; -INSU100V10 SQ; +INSU100V11 SQ; -INSU100V30 IJ; +INSU100V7 SQ; +ISOS40TA19 PO; +LEVE500T9 PO; +LIDO30AD10 TP; -LINA72CA PO; +MAGN400O6 PO; -METO25TA4 PO; +METO50TA16 PO; +NA P133E RC; +NORT10CA PO; -POLY17PO4 PO; +VANC1VIA34 XX; +VANC500P5 IV; +ZINC1CAP2 PO
[2023-03-26 18:50] LABS: BASOPHILS # (AUTO) 0.1 K/uL (0.0-0.2); BASOPHILS % (AUTO) 0.6 % (0.0-2.0); EOSINOPHILS # (AUTO) 0.1 K/uL (0.0-0.7); EOSINOPHILS % (AUTO) 0.4 % (0.0-6.0); HEMATOCRIT 42 % (33-45); HEMOGLOBIN 13.4 g/dL (11.5-14.8); LYMPHOCYTES # (AUTO) 0.6 K/uL (0.8-4.8); LYMPHOCYTES % (AUTO) 4.3 % (20.0-44.0); MEAN CORPUSCULAR HEMOGLOBIN 30 PG (26.0-33.0); MEAN CORPUSCULAR HGB CONC 32 g/dl (31.0-36.0); MEAN CORPUSCULAR VOLUME 95 fL (82-100); MONOCYTES # (AUTO) 0.4 K/uL (0.1-1.30); MONOCYTES % (AUTO) 2.3 % (2.0-12.0); NEUTROPHILS % (AUTO) 92.4 % (43.0-81.0); PLATELET COUNT (AUTO) 264 K/uL (150-450); RED BLOOD CELL COUNT(AUTO) 4.43 MIL/uL (4.0-5.2); RED CELL DISTRIBUTION WIDTH 15.4 % (11.5-15.0); WHITE BLOOD COUNT (AUTO) 15.2 K/uL (4.3-11.0)
[2023-03-26] MEDS ORDERED: POVI3780 TP (18:51)
[2023-03-26] MEDS ORDERED: EPOE1VIA7 SQ (18:51)
[2023-03-26] MEDS ORDERED: CALC1TAB30 PO (18:51)
[2023-03-26] MEDS ORDERED: CHOL100043 PO (18:51)
[2023-03-26] MEDS ORDERED: VITA1TAB56 PO (18:51)
[2023-03-26 19:00] LABS: CALCIUM, SERUM 10.2 mg/dL (8.5-10.1); CARBON DIOXIDE 24 mmol/L (21-32); CHLORIDE 91 mmol/L (98-107); CREATININE 6.1 mg/dL (0.6-1.3); GLUCOSE 202 mg/dL (74-106); POTASSIUM 5.5 mmol/L (3.5-5.1); SODIUM SERUM 129 mmol/L (136-145); UREA NITROGEN, BLOOD 34 mg/dL (7-18)
[2023-03-26] MEDS ORDERED: PIPERACILLIN /TAZOBACTAM 3.375 G in IV D5W 50 ML IV ONE (19:00)
[2023-03-26] MEDS ORDERED: IV NS 0.9% 500 ML BAG IV ONE (19:00)
[2023-03-26] MEDS ORDERED: VANCOMYCIN 1 GM in IV D5W 250 ML IV ONE (19:00)
[2023-03-26 19:13] LABS: LACTIC ACID 4.4 mmol/L (0.4-2.0)
[2023-03-26 19:14] LABS: ALANINE AMINOTRANSFERASE 18 U/L (12-78); ALBUMIN 3.6 g/dL (3.4-5.0); ALKALINE PHOSPHATASE 95 U/L (46-116); ASPARTATE AMINOTRANSFERASE 17 U/L (15-37); BILIRUBIN,DIRECT 0.2 mg/dL (0.0-0.2); BILIRUBIN,TOTAL 0.4 mg/dL (0.2-1.0); NT-PRO BNP 941 pg/mL (0-125)
[2023-03-26 19:16] LABS: INR 1.06 (0.91-1.10); PROTHROMBIN TIME 11.1 SECS (9.2-11.1)
[2023-03-26] MEDS ORDERED: VANCOMYCIN 1 GM /D5W 250 ML PB IV ONE (19:20)
[2023-03-26] MEDS ORDERED: PIPERACI/TAZO 3.375GM/D5W 50ML PB IV ONE (19:20)
[2023-03-26 20:51] LABS: APPEARANCE,URINE CLOUDY (CLEAR); BILIRUBIN,URINE NEGATIVE (NEGATIVE); BLOOD, URINE 2+ Ery/uL (NEGATIVE); COLOR,URINE YELLOW (YELLOW); KETONES,URINE NEGATIVE (NEGATIVE); LEUKOCYTE ESTERASE ,URINE 3+ (NEGATIVE); NITRITE, URINE POSITIVE (NEGATIVE); PH,URINE 7.5 (5.0-8.0); PROTEIN,URINE 2+ mg/dl (NEGATIVE); UGLUCOSE NEGATIVE (NEGATIVE); UROBILINOGEN,URINE 0.2 EU/dL (0.2)
[2023-03-26 20:54] LABS: ADD URINE CULTURE YES; BACTERIA,URINE 3+ /HPF (None Seen); RBC,URINE 21-50 /HPF (0-2); SQUAMOUS EPITHELIAL CELL,UR 0-2 /HPF (None Seen); WBC,URINE 51-80 /HPF (0-3)
[2023-03-26] MEDS ORDERED: IV NS 0.9% 500 ML IV ONE (22:00)
[2023-03-26] MEDS ORDERED: HYDROCODONE/APAP 5/325MG TABLET PO PRN (22:30)
[2023-03-26] MEDS ORDERED: ONDANSETRON HCL/PF 4 MG/2 ML VIAL IVP PRN (22:30)
[2023-03-26] MEDS ORDERED: VANCOMYCIN 500 MG in IV D5W 100ml IV ONE (23:00)
[2023-03-26] MEDS: DOCUSATE SODIUM 100 MG CAPSULE PO SCH (23:25)
[2023-03-26] MEDS: NORTRIPTYLINE HCL 10 MG CAPSULE PO SCH (23:25)
[2023-03-26] MEDS: SEVELAMER CARBONATE 800 MG TABLET PO SCH (23:25)
[2023-03-26] MEDS: LEVETIRACETAM (250 MG) 250 MG TABLET PO SCH (23:25)
[2023-03-26] MEDS: GABAPENTIN 100 MG CAPSULE PO SCH (23:25)
[2023-03-26] MEDS: ATORVASTATIN 10 MG TABLET PO SCH (23:25)
[2023-03-26] MEDS: METOPROLOL TARTRATE 50 MG TABLET PO SCH (23:25)
[2023-03-26] MEDS: SENNOSIDES 8.6 MG TABLET PO SCH (23:25)
[2023-03-26] MEDS: hydrALAZINE HCL 25 MG TABLET PO SCH (23:25)
[2023-03-26] MEDS: ISOSORBIDE DINITRATE (20MG) 20 MG TABLET PO SCH (23:25)
[2023-03-26 23:47] VITALS: BP 103/76; TEMP 100.4; O2SAT 99
[2023-03-26] MEDS ORDERED: VANCOMYCIN 500 MG VIAL ONE (23:59)
[2023-03-27] MEDS ORDERED: DEXTROSE 50%-WATER 50 ML DISP.SYRIN IV PRN (01:30)
[2023-03-27] MEDS ORDERED: INSULIN GLARGINE, 100 UNIT/ML CARTRIDGE SQ ONE (01:49)
[2023-03-27] MEDS: INSULIN GLARGINE, 100 UNIT/ML CARTRIDGE SQ SCH ×2 (01:54→21:41)
[2023-03-27] MEDS: HEPARIN SODIUM, PORCINE 5000 UNITS/1 ML VIAL SQ SCH ×3 (01:57→21:33)
[2023-03-27] MEDS ORDERED: PIPERACILLIN /TAZOBACTAM 2.25 G in IV D5W 50 ML IV ONE (03:00)
[2023-03-27] MEDS ORDERED: PIPERCILLIN/TAZOBACTAM 2.25GM/D5W 50MLPB IV ONE (03:03)
[2023-03-27 04:00] VITALS: BP 121/55; TEMP 100.5; O2SAT 98
[2023-03-27 06:58] LABS: BASOPHILS % (AUTO) 0.1 % (0.0-2.0); HEMATOCRIT 37 % (33-45); HEMOGLOBIN 11.6 g/dL (11.5-14.8); LYMPHOCYTES # (AUTO) 0.5 K/uL (0.8-4.8); LYMPHOCYTES % (AUTO) 1.6 % (20.0-44.0); MEAN CORPUSCULAR HEMOGLOBIN 30 PG (26.0-33.0); MEAN CORPUSCULAR HGB CONC 31 g/dl (31.0-36.0); MEAN CORPUSCULAR VOLUME 95 fL (82-100); MONOCYTES % (AUTO) 3.1 % (2.0-12.0); NEUTROPHILS # (AUTO) 29.6 K/uL (1.8-8.9); NEUTROPHILS % (AUTO) 95.2 % (43.0-81.0); PLATELET COUNT (AUTO) 245 K/uL (150-450); RED BLOOD CELL COUNT(AUTO) 3.88 MIL/uL (4.0-5.2); RED CELL DISTRIBUTION WIDTH 15.7 % (11.5-15.0)
[2023-03-27 07:04] LABS: WHITE BLOOD COUNT (AUTO) 31.1 K/uL (4.3-11.0)
[2023-03-27 07:17] LABS: CALCIUM, SERUM 9.7 mg/dL (8.5-10.1); CARBON DIOXIDE 23 mmol/L (21-32); CHLORIDE 93 mmol/L (98-107); CREATININE 6.2 mg/dL (0.6-1.3); GLUCOSE 201 mg/dL (74-106); SODIUM SERUM 127 mmol/L (136-145); UREA NITROGEN, BLOOD 40 mg/dL (7-18)
[2023-03-27] MEDS: FAMOTIDINE (20 MG) 20 MG TABLET PO SCH (07:30)
[2023-03-27] MEDS: LEVOTHYROXINE SODIUM 50 MCG TABLET PO SCH (07:30)
[2023-03-27 08:00] VITALS: BP 141/58; TEMP 98.3; O2SAT 100
[2023-03-27] MEDS: ALLOPURINOL 100 MG TABLET PO SCH (09:00)
[2023-03-27] MEDS: SEVELAMER CARBONATE 800 MG TABLET PO SCH ×3 (09:00→18:00)
[2023-03-27] MEDS: FERROUS SULFATE (325 MG) 325 MG/TAB TABLET PO SCH (09:00)
[2023-03-27] MEDS: ASPIRIN 81 MG TAB.CHEW PO SCH (09:00)
[2023-03-27] MEDS: hydrALAZINE HCL 25 MG TABLET PO SCH ×2 (09:00→20:19)
[2023-03-27] MEDS: METOPROLOL TARTRATE 50 MG TABLET PO SCH ×2 (09:00→17:00)
[2023-03-27] MEDS: ISOSORBIDE DINITRATE (20MG) 20 MG TABLET PO SCH ×2 (09:00→20:19)
[2023-03-27] MEDS: GABAPENTIN 100 MG CAPSULE PO SCH ×2 (09:00→20:20)
[2023-03-27] MEDS: DOCUSATE SODIUM 100 MG CAPSULE PO SCH ×2 (09:00→17:00)
[2023-03-27] MEDS ORDERED: CALCIUM CARB 600MG /VIT D 1 EACH TABLET PO SCH (09:00)
[2023-03-27] MEDS: LEVETIRACETAM (250 MG) 250 MG TABLET PO SCH (09:00)
[2023-03-27] MEDS: ASCORBIC ACID 500 MG TABLET PO SCH (09:00)
[2023-03-27] MEDS: INSULIN REGULAR, HUMAN 100 UNIT/ML 3 ML VIAL SQ PRN ×4 (10:40→21:42)
[2023-03-27] MEDS: BLOOD SUGAR DIAGNOSTIC 1 EACH STRIP IN SCH ×4 (10:40→21:41)
[2023-03-27 12:00] VITALS: BP 98/44; TEMP 100.5; O2SAT 98
[2023-03-27 12:45] LABS: ANISOCYTOSIS 1+; BAND % (MANUAL) 4 % (0.0-5.0); BASOPHILS % (MANUAL) 0 % (0.0-2.0); EOSINOPHILS % (MANUAL) 0 % (0-4); LYMPHOCYTES % (MANUAL) 3 % (16-48); MONOCYTES % (MANUAL) 6 % (0-11.0); NEUTROPHILS % (MANUAL) 87 (42-76); PLATELET ESTIMATE ADEQUATE
[2023-03-27] MEDS ORDERED: PIPERACILLIN /TAZOBACTAM 2.25 G in IV D5W 50 ML IV SCH (13:00)
[2023-03-27 16:00] VITALS: BP 92/70; TEMP 101.7; O2SAT 99
[2023-03-27] MEDS ORDERED: ALBUMIN 25% 25 GM in PREMIX 1 EA IV PRN (16:00)
[2023-03-27] MEDS: ACETAMINOPHEN 650 MG/SUPP.RECT RC PRN (16:02)
[2023-03-27 18:00] VITALS: TEMP 100.7
[2023-03-27] MEDS: LEVETIRACETAM (500MG) 500 MG in IV NS 0.9% 100 ML IV SCH (18:14)
[2023-03-27] MEDS: MEROPENEM 500 MG in IV NS 0.9% 50 ML IV SCH (19:21)
[2023-03-27 20:00] VITALS: BP 145/99; TEMP 101.3; O2SAT 94
[2023-03-27] MEDS: METRONIDAZOLE 500MG/ NS 100ML 500 MG in PREMIX 1 EA IV SCH (20:38)
[2023-03-27] MEDS ORDERED: HEPARIN SODIUM, PORCINE 5000 UNITS/1 ML VIAL SQ SCH (21:00)
[2023-03-27] MEDS: ATORVASTATIN 10 MG TABLET PO SCH (21:11)
[2023-03-27] MEDS: SENNOSIDES 8.6 MG TABLET PO SCH (21:12)
[2023-03-27] MEDS: NORTRIPTYLINE HCL 10 MG CAPSULE PO SCH (21:12)
[2023-03-27] MEDS: MORPHINE SULFATE INJ 2 MG/ML DISP.SYRIN IV PRN (22:15)
[2023-03-28] VITALS (7 sets, daily range): BP systolic 107–138; BP diastolic 59–99; TEMP 98.1–102.4; O2SAT 96–99
[2023-03-28] MEDS: ACETAMINOPHEN 650 MG/SUPP.RECT RC PRN (00:05)
[2023-03-28] MEDS: LEVETIRACETAM (500MG) 500 MG in IV NS 0.9% 100 ML IV SCH ×2 (04:55→17:34)
[2023-03-28] MEDS: METRONIDAZOLE 500MG/ NS 100ML 500 MG in PREMIX 1 EA IV SCH ×3 (05:46→20:32)
[2023-03-28] MEDS: MEROPENEM 500 MG in IV NS 0.9% 50 ML IV SCH ×2 (06:54→19:28)
[2023-03-28] MEDS: LEVOTHYROXINE SODIUM 50 MCG TABLET PO SCH (07:30)
[2023-03-28] MEDS: FAMOTIDINE (20 MG) 20 MG TABLET PO SCH (07:30)
[2023-03-28] MEDS: SEVELAMER CARBONATE 800 MG TABLET PO SCH ×3 (08:00→17:35)
[2023-03-28] MEDS: BLOOD SUGAR DIAGNOSTIC 1 EACH STRIP IN SCH ×4 (08:16→22:06)
[2023-03-28] MEDS: INSULIN REGULAR, HUMAN 100 UNIT/ML 3 ML VIAL SQ PRN ×2 (08:18→22:11)
[2023-03-28] MEDS: hydrALAZINE HCL 25 MG TABLET PO SCH ×2 (08:20→20:49)
[2023-03-28] MEDS: FERROUS SULFATE (325 MG) 325 MG/TAB TABLET PO SCH (08:21)
[2023-03-28] MEDS: ISOSORBIDE DINITRATE (20MG) 20 MG TABLET PO SCH ×2 (08:21→20:49)
[2023-03-28] MEDS: ASPIRIN 81 MG TAB.CHEW PO SCH (08:21)
[2023-03-28] MEDS: DOCUSATE SODIUM 100 MG CAPSULE PO SCH ×2 (08:21→17:34)
[2023-03-28] MEDS: ASCORBIC ACID 500 MG TABLET PO SCH (08:22)
[2023-03-28] MEDS: GABAPENTIN 100 MG CAPSULE PO SCH ×2 (08:22→20:48)
[2023-03-28] MEDS: ALLOPURINOL 100 MG TABLET PO SCH (08:22)
[2023-03-28] MEDS: METOPROLOL TARTRATE 50 MG TABLET PO SCH ×2 (08:23→17:35)
[2023-03-28] MEDS: VANCOMYCIN POST DIALYSIS 500MG IV PRN ×2 (08:42)
[2023-03-28] MEDS: HEPARIN SODIUM, PORCINE 5000 UNITS/1 ML VIAL SQ SCH ×2 (08:43→20:52)
[2023-03-28 08:53] LABS: BASOPHILS # (AUTO) 0.1 K/uL (0.0-0.2); BASOPHILS % (AUTO) 0.3 % (0.0-2.0); EOSINOPHILS # (AUTO) 0.1 K/uL (0.0-0.7); EOSINOPHILS % (AUTO) 0.3 % (0.0-6.0); HEMATOCRIT 36 % (33-45); HEMOGLOBIN 11.2 g/dL (11.5-14.8); LYMPHOCYTES # (AUTO) 0.6 K/uL (0.8-4.8); LYMPHOCYTES % (AUTO) 2.6 % (20.0-44.0); MEAN CORPUSCULAR HEMOGLOBIN 30 PG (26.0-33.0); MEAN CORPUSCULAR HGB CONC 31 g/dl (31.0-36.0); MEAN CORPUSCULAR VOLUME 96 fL (82-100); MONOCYTES # (AUTO) 1.6 K/uL (0.1-1.30); MONOCYTES % (AUTO) 6.5 % (2.0-12.0); NEUTROPHILS # (AUTO) 21.8 K/uL (1.8-8.9); NEUTROPHILS % (AUTO) 90.3 % (43.0-81.0); PLATELET COUNT (AUTO) 206 K/uL (150-450); RED BLOOD CELL COUNT(AUTO) 3.77 MIL/uL (4.0-5.2); RED CELL DISTRIBUTION WIDTH 15.6 % (11.5-15.0); WHITE BLOOD COUNT (AUTO) 24.2 K/uL (4.3-11.0)
[2023-03-28 08:55] LABS: CALCIUM, SERUM 9.8 mg/dL (8.5-10.1); CARBON DIOXIDE 23 mmol/L (21-32); CHLORIDE 99 mmol/L (98-107); CREATININE 5.1 mg/dL (0.6-1.3); GLUCOSE 122 mg/dL (74-106); POTASSIUM 4.7 mmol/L (3.5-5.1); SODIUM SERUM 135 mmol/L (136-145); UREA NITROGEN, BLOOD 32 mg/dL (7-18)
[2023-03-28 09:07] LABS: ALBUMIN 2.7 g/dL (3.4-5.0); BILIRUBIN,DIRECT 0.2 mg/dL (0.0-0.2); BILIRUBIN,TOTAL 0.4 mg/dL (0.2-1.0); TOTAL PROTEIN, SERUM 7.3 g/dL (6.4-8.2)
[2023-03-28] MEDS: ACETAMINOPHEN 325 MG TABLET PO PRN (19:28)
[2023-03-28] MEDS: SENNOSIDES 8.6 MG TABLET PO SCH (22:00)
[2023-03-28] MEDS: ATORVASTATIN 10 MG TABLET PO SCH (22:01)
[2023-03-28] MEDS: NORTRIPTYLINE HCL 10 MG CAPSULE PO SCH (22:01)
[2023-03-28] MEDS: INSULIN GLARGINE, 100 UNIT/ML CARTRIDGE SQ SCH (22:10)
[2023-03-29] VITALS (7 sets, daily range): BP systolic 87–137; BP diastolic 40–106; TEMP 97.9–99; O2SAT 96–100
[2023-03-29] MEDS ORDERED: Z GUARD REMEDY 4 OZ OINT TP PRN (01:00)
[2023-03-29] MEDS ORDERED: IV NS 0.9% 250 ML IV PRN (01:00)
[2023-03-29 03:07] LABS: HEPATITIS B SURFACE AB Non Reactive (.)
[2023-03-29] MEDS: LEVETIRACETAM (500MG) 500 MG in IV NS 0.9% 100 ML IV SCH (04:00)
[2023-03-29] MEDS: METRONIDAZOLE 500MG/ NS 100ML 500 MG in PREMIX 1 EA IV SCH ×3 (04:44→20:33)
[2023-03-29] MEDS: MEROPENEM 500 MG in IV NS 0.9% 50 ML IV SCH ×2 (06:12→18:02)
[2023-03-29] MEDS: LEVOTHYROXINE SODIUM 50 MCG TABLET PO SCH (07:30)
[2023-03-29] MEDS: FAMOTIDINE (20 MG) 20 MG TABLET PO SCH (07:30)
[2023-03-29] MEDS: BLOOD SUGAR DIAGNOSTIC 1 EACH STRIP IN SCH ×4 (07:43→22:42)
[2023-03-29] MEDS: SEVELAMER CARBONATE 800 MG TABLET PO SCH ×4 (08:00→17:07)
[2023-03-29] MEDS: hydrALAZINE HCL 25 MG TABLET PO SCH ×2 (09:00→20:34)
[2023-03-29] MEDS: METOPROLOL TARTRATE 50 MG TABLET PO SCH ×2 (09:00→17:00)
[2023-03-29] MEDS: FERROUS SULFATE (325 MG) 325 MG/TAB TABLET PO SCH (09:00)
[2023-03-29] MEDS: ALLOPURINOL 100 MG TABLET PO SCH (09:00)
[2023-03-29] MEDS: ISOSORBIDE DINITRATE (20MG) 20 MG TABLET PO SCH ×2 (09:00→20:34)
[2023-03-29] MEDS: ASPIRIN 81 MG TAB.CHEW PO SCH (09:00)
[2023-03-29] MEDS: HEPARIN SODIUM, PORCINE 5000 UNITS/1 ML VIAL SQ SCH ×2 (09:00→20:35)
[2023-03-29] MEDS: GABAPENTIN 100 MG CAPSULE PO SCH ×2 (09:00→20:33)
[2023-03-29] MEDS: CLOPIDOGREL BISULFATE 75 MG TABLET PO SCH (09:00)
[2023-03-29] MEDS: ASCORBIC ACID 500 MG TABLET PO SCH (09:00)
[2023-03-29] MEDS: DOCUSATE SODIUM 100 MG CAPSULE PO SCH ×3 (09:00→17:02)
[2023-03-29 11:14] LABS: CALCIUM, SERUM 9.7 mg/dL (8.5-10.1); CARBON DIOXIDE 25 mmol/L (21-32); CHLORIDE 99 mmol/L (98-107); CREATININE 6.1 mg/dL (0.6-1.3); GLUCOSE 144 mg/dL (74-106); POTASSIUM 4.5 mmol/L (3.5-5.1); SODIUM SERUM 134 mmol/L (136-145); UREA NITROGEN, BLOOD 47 mg/dL (7-18)
[2023-03-29] MEDS ORDERED: IOHEXOL-350 100 ML VIAL IV ONE (14:38)
[2023-03-29] MEDS ORDERED: IV NS 0.9% 250 ML IV ONE (14:38)
[2023-03-29] MEDS ORDERED: CT SWABBABLE VALVE TRANS SET 1 EA INFUS.SET MC ONE (14:38)
[2023-03-29] MEDS: LEVETIRACETAM SOL (5 ML) 100 MG/ML UDC PO SCH (20:34)
[2023-03-29] MEDS: ATORVASTATIN 10 MG TABLET PO SCH (22:18)
[2023-03-29] MEDS: SENNOSIDES 8.6 MG TABLET PO SCH (22:19)
[2023-03-29] MEDS: NORTRIPTYLINE HCL 10 MG CAPSULE PO SCH (22:19)
[2023-03-29] MEDS: INSULIN GLARGINE, 100 UNIT/ML CARTRIDGE SQ SCH (22:41)
[2023-03-29] MEDS: INSULIN REGULAR, HUMAN 100 UNIT/ML 3 ML VIAL SQ PRN (22:43)
[2023-03-30] VITALS: BP 123/50; TEMP 98.8; O2SAT 98
[2023-03-30 04:00] VITALS: BP 122/66; TEMP 99.2; O2SAT 96
[2023-03-30] MEDS: METRONIDAZOLE 500MG/ NS 100ML 500 MG in PREMIX 1 EA IV SCH ×2 (04:09→12:42)
[2023-03-30] MEDS: MORPHINE SULFATE INJ 2 MG/ML DISP.SYRIN IV PRN (05:48)
[2023-03-30] MEDS: MEROPENEM 500 MG in IV NS 0.9% 50 ML IV SCH ×2 (06:13→18:07)
[2023-03-30] MEDS: ACETAMINOPHEN 325 MG TABLET PO PRN (06:18)
[2023-03-30 06:33] LABS: BASOPHILS % (AUTO) 0.1 % (0.0-2.0); EOSINOPHILS # (AUTO) 0.3 K/uL (0.0-0.7); EOSINOPHILS % (AUTO) 1.3 % (0.0-6.0); HEMATOCRIT 32 % (33-45); HEMOGLOBIN 10.6 g/dL (11.5-14.8); LYMPHOCYTES # (AUTO) 0.6 K/uL (0.8-4.8); LYMPHOCYTES % (AUTO) 2.8 % (20.0-44.0); MEAN CORPUSCULAR HEMOGLOBIN 31 PG (26.0-33.0); MEAN CORPUSCULAR HGB CONC 33 g/dl (31.0-36.0); MEAN CORPUSCULAR VOLUME 93 fL (82-100); MONOCYTES # (AUTO) 1.3 K/uL (0.1-1.30); MONOCYTES % (AUTO) 6.6 % (2.0-12.0); NEUTROPHILS # (AUTO) 18.1 K/uL (1.8-8.9); NEUTROPHILS % (AUTO) 89.2 % (43.0-81.0); PLATELET COUNT (AUTO) 209 K/uL (150-450); RED BLOOD CELL COUNT(AUTO) 3.48 MIL/uL (4.0-5.2); RED CELL DISTRIBUTION WIDTH 15.8 % (11.5-15.0); WHITE BLOOD COUNT (AUTO) 20.3 K/uL (4.3-11.0)
[2023-03-30] MEDS: VANCOMYCIN POST DIALYSIS 500MG IV PRN ×2 (07:43)
[2023-03-30 07:51] LABS: CALCIUM, SERUM 9.2 mg/dL (8.5-10.1); CARBON DIOXIDE 21 mmol/L (21-32); CHLORIDE 103 mmol/L (98-107); CREATININE 4.9 mg/dL (0.6-1.3); GLUCOSE 147 mg/dL (74-106); MAGNESIUM 2.2 mg/dL (1.8-2.4); PHOSPHORUS 4.2 mg/dL (2.5-4.9); SODIUM SERUM 138 mmol/L (136-145); UREA NITROGEN, BLOOD 34 mg/dL (7-18); VANCOMYCIN,TROUGH 14 ug/ml (12-20)
[2023-03-30 08:00] VITALS: BP 121/57; TEMP 98.9; O2SAT 94
[2023-03-30] MEDS: SEVELAMER CARBONATE 800 MG TABLET PO SCH ×2 (08:00→08:23)
[2023-03-30] MEDS: BLOOD SUGAR DIAGNOSTIC 1 EACH STRIP IN SCH ×4 (08:02→21:49)
[2023-03-30] MEDS: INSULIN REGULAR, HUMAN 100 UNIT/ML 3 ML VIAL SQ PRN ×2 (08:05→11:35)
[2023-03-30] MEDS: ASPIRIN 81 MG TAB.CHEW PO SCH (08:21)
[2023-03-30] MEDS: ISOSORBIDE DINITRATE (20MG) 20 MG TABLET PO SCH ×2 (08:21→21:35)
[2023-03-30] MEDS: LEVETIRACETAM SOL (5 ML) 100 MG/ML UDC PO SCH ×2 (08:21→21:35)
[2023-03-30] MEDS: GABAPENTIN 100 MG CAPSULE PO SCH ×2 (08:21→21:35)
[2023-03-30] MEDS: ASCORBIC ACID 500 MG TABLET PO SCH (08:21)
[2023-03-30] MEDS: DOCUSATE SODIUM 100 MG CAPSULE PO SCH ×2 (08:22→17:06)
[2023-03-30] MEDS: LEVOTHYROXINE SODIUM 50 MCG TABLET PO SCH (08:22)
[2023-03-30] MEDS: FERROUS SULFATE (325 MG) 325 MG/TAB TABLET PO SCH (08:22)
[2023-03-30] MEDS: FAMOTIDINE (20 MG) 20 MG TABLET PO SCH (08:22)
[2023-03-30] MEDS: CLOPIDOGREL BISULFATE 75 MG TABLET PO SCH (08:22)
[2023-03-30] MEDS: hydrALAZINE HCL 25 MG TABLET PO SCH ×2 (08:22→21:35)
[2023-03-30] MEDS: ALLOPURINOL 100 MG TABLET PO SCH (08:23)
[2023-03-30] MEDS: METOPROLOL TARTRATE 50 MG TABLET PO SCH ×2 (08:24→17:00)
[2023-03-30] MEDS: HEPARIN SODIUM, PORCINE 5000 UNITS/1 ML VIAL SQ SCH ×2 (08:27→21:24)
[2023-03-30] MEDS: DAKINS QUARTER STRENGTH (0.125%) 480 ML BOTTLE TOP SCH (08:51)
[2023-03-30] MEDS ORDERED: NEPRO VAN 237 ML CAN PO PRN (10:30)
[2023-03-30 12:00] VITALS: BP 100/48; TEMP 99.3; O2SAT 93
[2023-03-30] MEDS: SEVELAMER CARBONATE 800 MG POWD.PACK PO SCH ×2 (13:00→17:06)
[2023-03-30 16:00] VITALS: BP 102/40; TEMP 98.7; O2SAT 94
[2023-03-30 20:00] VITALS: BP 129/65; TEMP 98.2; O2SAT 98
[2023-03-30] MEDS: MUPIROCIN OINT 2% 22 GM TUBE NS SCH (21:34)
[2023-03-30] MEDS: ATORVASTATIN 10 MG TABLET PO SCH (21:35)
[2023-03-30] MEDS: SENNOSIDES 8.6 MG TABLET PO SCH (21:52)
[2023-03-30] MEDS: NORTRIPTYLINE HCL 10 MG CAPSULE PO SCH (21:52)
[2023-03-30] MEDS: INSULIN GLARGINE, 100 UNIT/ML CARTRIDGE SQ SCH (21:59)
[2023-03-31] VITALS (7 sets, daily range): BP systolic 100–145; BP diastolic 40–72; TEMP 98.1–98.8; O2SAT 93–99
[2023-03-31 06:28] LABS: BASOPHILS # (AUTO) 0.1 K/uL (0.0-0.2); BASOPHILS % (AUTO) 0.6 % (0.0-2.0); EOSINOPHILS # (AUTO) 0.4 K/uL (0.0-0.7); EOSINOPHILS % (AUTO) 2.4 % (0.0-6.0); HEMATOCRIT 30 % (33-45); HEMOGLOBIN 9.5 g/dL (11.5-14.8); LYMPHOCYTES % (AUTO) 5.9 % (20.0-44.0); MEAN CORPUSCULAR HEMOGLOBIN 30 PG (26.0-33.0); MEAN CORPUSCULAR HGB CONC 32 g/dl (31.0-36.0); MEAN CORPUSCULAR VOLUME 94 fL (82-100); MONOCYTES # (AUTO) 1.6 K/uL (0.1-1.30); MONOCYTES % (AUTO) 9.8 % (2.0-12.0); NEUTROPHILS # (AUTO) 13.3 K/uL (1.8-8.9); NEUTROPHILS % (AUTO) 81.3 % (43.0-81.0); PLATELET COUNT (AUTO) 178 K/uL (150-450); RED BLOOD CELL COUNT(AUTO) 3.18 MIL/uL (4.0-5.2); RED CELL DISTRIBUTION WIDTH 15.8 % (11.5-15.0); WHITE BLOOD COUNT (AUTO) 16.4 K/uL (4.3-11.0)
[2023-03-31] MEDS: MEROPENEM 500 MG in IV NS 0.9% 50 ML IV SCH ×2 (07:27→18:09)
[2023-03-31 07:46] LABS: CALCIUM, SERUM 9.5 mg/dL (8.5-10.1); CARBON DIOXIDE 22 mmol/L (21-32); CHLORIDE 103 mmol/L (98-107); CREATININE 5.9 mg/dL (0.6-1.3); GLUCOSE 112 mg/dL (74-106); MAGNESIUM 1.9 mg/dL (1.8-2.4); PHOSPHORUS 4.6 mg/dL (2.5-4.9); POTASSIUM 4.3 mmol/L (3.5-5.1); SODIUM SERUM 138 mmol/L (136-145); UREA NITROGEN, BLOOD 45 mg/dL (7-18)
[2023-03-31] MEDS: BLOOD SUGAR DIAGNOSTIC 1 EACH STRIP IN SCH ×4 (08:07→22:00)
[2023-03-31] MEDS: LEVOTHYROXINE SODIUM 50 MCG TABLET PO SCH (08:15)
[2023-03-31] MEDS: FAMOTIDINE (20 MG) 20 MG TABLET PO SCH (08:15)
[2023-03-31] MEDS: SEVELAMER CARBONATE 800 MG POWD.PACK PO SCH (08:16)
[2023-03-31] MEDS: ASCORBIC ACID 500 MG TABLET PO SCH (08:19)
[2023-03-31] MEDS: MUPIROCIN OINT 2% 22 GM TUBE NS SCH ×2 (08:19→21:59)
[2023-03-31] MEDS: DOCUSATE SODIUM 100 MG CAPSULE PO SCH ×2 (08:19→17:00)
[2023-03-31] MEDS: FERROUS SULFATE (325 MG) 325 MG/TAB TABLET PO SCH (08:19)
[2023-03-31] MEDS: ASPIRIN 81 MG TAB.CHEW PO SCH (08:21)
[2023-03-31] MEDS: LEVETIRACETAM SOL (5 ML) 100 MG/ML UDC PO SCH (08:21)
[2023-03-31] MEDS: ALLOPURINOL 100 MG TABLET PO SCH (08:21)
[2023-03-31] MEDS: GABAPENTIN 100 MG CAPSULE PO SCH ×2 (08:21→22:01)
[2023-03-31] MEDS: CLOPIDOGREL BISULFATE 75 MG TABLET PO SCH (08:21)
[2023-03-31] MEDS: METOPROLOL TARTRATE 50 MG TABLET PO SCH ×2 (08:22→17:00)
[2023-03-31] MEDS: ISOSORBIDE DINITRATE (20MG) 20 MG TABLET PO SCH ×2 (08:22→21:58)
[2023-03-31] MEDS: hydrALAZINE HCL 25 MG TABLET PO SCH ×2 (08:22→21:59)
[2023-03-31] MEDS: HEPARIN SODIUM, PORCINE 5000 UNITS/1 ML VIAL SQ SCH ×2 (08:24→22:02)
[2023-03-31] MEDS: DAKINS QUARTER STRENGTH (0.125%) 480 ML BOTTLE TOP SCH (08:24)
[2023-03-31] MEDS: SEVELAMER CARBONATE 800 MG TABLET PO SCH ×3 (12:06→17:40)
[2023-03-31] MEDS: LEVETIRACETAM (250 MG) 250 MG TABLET PO SCH (21:58)
[2023-03-31] MEDS: NORTRIPTYLINE HCL 10 MG CAPSULE PO SCH (21:59)
[2023-03-31] MEDS: SENNOSIDES 8.6 MG TABLET PO SCH (21:59)
[2023-03-31] MEDS: INSULIN GLARGINE, 100 UNIT/ML CARTRIDGE SQ SCH (22:00)
[2023-03-31] MEDS: ATORVASTATIN 10 MG TABLET PO SCH (22:00)
[2023-04-01] VITALS (7 sets, daily range): BP systolic 108–164; BP diastolic 51–87; TEMP 97.7–99.4; O2SAT 92–100
[2023-04-01] MEDS: MEROPENEM 500 MG in IV NS 0.9% 50 ML IV SCH ×2 (07:15→19:23)
[2023-04-01 07:21] LABS: CALCIUM, SERUM 9.8 mg/dL (8.5-10.1); CARBON DIOXIDE 22 mmol/L (21-32); CHLORIDE 102 mmol/L (98-107); CREATININE 6.3 mg/dL (0.6-1.3); GLUCOSE 116 mg/dL (74-106); POTASSIUM 5.3 mmol/L (3.5-5.1); SODIUM SERUM 138 mmol/L (136-145); UREA NITROGEN, BLOOD 53 mg/dL (7-18)
[2023-04-01] MEDS: LEVOTHYROXINE SODIUM 50 MCG TABLET PO SCH (08:15)
[2023-04-01] MEDS: FAMOTIDINE (20 MG) 20 MG TABLET PO SCH (08:15)
[2023-04-01] MEDS: SEVELAMER CARBONATE 800 MG TABLET PO SCH ×3 (08:30→17:26)
[2023-04-01] MEDS: BLOOD SUGAR DIAGNOSTIC 1 EACH STRIP IN SCH ×4 (08:34→21:55)
[2023-04-01] MEDS: FERROUS SULFATE (325 MG) 325 MG/TAB TABLET PO SCH (08:40)
[2023-04-01] MEDS: METOPROLOL TARTRATE 50 MG TABLET PO SCH ×2 (08:40→17:27)
[2023-04-01] MEDS: CLOPIDOGREL BISULFATE 75 MG TABLET PO SCH (08:40)
[2023-04-01] MEDS: ASCORBIC ACID 500 MG TABLET PO SCH (08:40)
[2023-04-01] MEDS: LEVETIRACETAM (250 MG) 250 MG TABLET PO SCH ×2 (08:40→21:15)
[2023-04-01] MEDS: DOCUSATE SODIUM 100 MG CAPSULE PO SCH ×2 (08:40→17:26)
[2023-04-01] MEDS: GABAPENTIN 100 MG CAPSULE PO SCH ×2 (08:40→21:14)
[2023-04-01] MEDS: ALLOPURINOL 100 MG TABLET PO SCH (08:40)
[2023-04-01] MEDS: hydrALAZINE HCL 25 MG TABLET PO SCH ×2 (08:41→21:12)
[2023-04-01] MEDS: ISOSORBIDE DINITRATE (20MG) 20 MG TABLET PO SCH ×2 (08:41→21:19)
[2023-04-01] MEDS: ASPIRIN 81 MG TAB.CHEW PO SCH (08:41)
[2023-04-01] MEDS: HEPARIN SODIUM, PORCINE 5000 UNITS/1 ML VIAL SQ SCH ×2 (08:43→21:16)
[2023-04-01] MEDS: DAKINS QUARTER STRENGTH (0.125%) 480 ML BOTTLE TOP SCH (09:06)
[2023-04-01] MEDS: MUPIROCIN OINT 2% 22 GM TUBE NS SCH ×2 (09:06→21:27)
[2023-04-01] MEDS: INSULIN REGULAR, HUMAN 100 UNIT/ML 3 ML VIAL SQ PRN ×2 (12:33→21:59)
[2023-04-01] MEDS ORDERED: GENTAMICIN 80 MG in IV D5W 50 ML IV PRN (16:30)
[2023-04-01] MEDS ORDERED: D5W IV ONE (17:00)
[2023-04-01] MEDS ORDERED: GENTAMICIN IV ONE (17:00)
[2023-04-01] MEDS ORDERED: GENTAMICIN 160 MG in IV D5W 100 ML IV ONE (17:00)
[2023-04-01] MEDS: ATORVASTATIN 10 MG TABLET PO SCH (21:14)
[2023-04-01] MEDS: NORTRIPTYLINE HCL 10 MG CAPSULE PO SCH (21:14)
[2023-04-01] MEDS: SENNOSIDES 8.6 MG TABLET PO SCH (21:14)
[2023-04-01] MEDS: ACETAMINOPHEN 325 MG TABLET PO PRN (21:15)
[2023-04-01] MEDS: INSULIN GLARGINE, 100 UNIT/ML CARTRIDGE SQ SCH (21:58)
[2023-04-02] VITALS: BP 119/54; TEMP 98.5; O2SAT 97
[2023-04-02 04:00] VITALS: BP 123/42; TEMP 97.6; O2SAT 100
[2023-04-02] MEDS: MEROPENEM 500 MG in IV NS 0.9% 50 ML IV SCH ×2 (06:17→18:10)
[2023-04-02] MEDS: BLOOD SUGAR DIAGNOSTIC 1 EACH STRIP IN SCH ×4 (07:36→22:16)
[2023-04-02 08:00] VITALS: BP 101/66; TEMP 97.9; O2SAT 100
[2023-04-02] MEDS: LEVOTHYROXINE SODIUM 50 MCG TABLET PO SCH (08:44)
[2023-04-02] MEDS: FAMOTIDINE (20 MG) 20 MG TABLET PO SCH (08:44)
[2023-04-02] MEDS: METOPROLOL TARTRATE 50 MG TABLET PO SCH ×2 (08:45→17:29)
[2023-04-02] MEDS: ALLOPURINOL 100 MG TABLET PO SCH (08:45)
[2023-04-02] MEDS: FERROUS SULFATE (325 MG) 325 MG/TAB TABLET PO SCH (08:45)
[2023-04-02] MEDS: DOCUSATE SODIUM 100 MG CAPSULE PO SCH ×2 (08:45→17:28)
[2023-04-02] MEDS: CLOPIDOGREL BISULFATE 75 MG TABLET PO SCH (08:46)
[2023-04-02] MEDS: SEVELAMER CARBONATE 800 MG TABLET PO SCH ×3 (08:46→17:28)
[2023-04-02] MEDS: GABAPENTIN 100 MG CAPSULE PO SCH ×2 (08:46→20:13)
[2023-04-02] MEDS: ASPIRIN 81 MG TAB.CHEW PO SCH (08:46)
[2023-04-02] MEDS: ASCORBIC ACID 500 MG TABLET PO SCH (08:46)
[2023-04-02] MEDS: LEVETIRACETAM (250 MG) 250 MG TABLET PO SCH ×2 (08:46→20:12)
[2023-04-02] MEDS: HEPARIN SODIUM, PORCINE 5000 UNITS/1 ML VIAL SQ SCH ×2 (08:49→20:16)
[2023-04-02] MEDS: ISOSORBIDE DINITRATE (20MG) 20 MG TABLET PO SCH ×2 (09:00→20:13)
[2023-04-02] MEDS: hydrALAZINE HCL 25 MG TABLET PO SCH ×2 (09:00→20:13)
[2023-04-02] MEDS: VANCOMYCIN POST DIALYSIS 500MG IV PRN ×2 (09:06)
[2023-04-02] MEDS: MUPIROCIN OINT 2% 22 GM TUBE NS SCH ×2 (09:27→20:48)
[2023-04-02] MEDS: DAKINS QUARTER STRENGTH (0.125%) 480 ML BOTTLE TOP SCH (09:27)
[2023-04-02 10:25] LABS: CARBON DIOXIDE 21 mmol/L (21-32); CHLORIDE 103 mmol/L (98-107); CREATININE 6.4 mg/dL (0.6-1.3); GENTAMICIN,RANDOM 4.9 ug/ml (4.0-8.0); GLUCOSE 95 mg/dL (74-106); POTASSIUM 4.9 mmol/L (3.5-5.1); SODIUM SERUM 138 mmol/L (136-145); UREA NITROGEN, BLOOD 51 mg/dL (7-18)
[2023-04-02] MEDS: MORPHINE SULFATE INJ 2 MG/ML DISP.SYRIN IV PRN (11:59)
[2023-04-02 12:00] VITALS: BP 110/72; TEMP 98.7; O2SAT 95
[2023-04-02 16:00] VITALS: BP 110/50; TEMP 98.8; O2SAT 100
[2023-04-02 20:00] VITALS: BP 115/55; TEMP 98.7; O2SAT 100
[2023-04-02] MEDS: SENNOSIDES 8.6 MG TABLET PO SCH (21:18)
[2023-04-02] MEDS: ATORVASTATIN 10 MG TABLET PO SCH (21:18)
[2023-04-02] MEDS: NORTRIPTYLINE HCL 10 MG CAPSULE PO SCH (21:18)
[2023-04-02] MEDS: INSULIN GLARGINE, 100 UNIT/ML CARTRIDGE SQ SCH (22:00)
[2023-04-03] VITALS: BP 107/52; TEMP 98.1; O2SAT 99
[2023-04-03 04:00] VITALS: BP 97/63; TEMP 98.5; O2SAT 100
[2023-04-03 07:11] LABS: BASOPHILS # (AUTO) 0.1 K/uL (0.0-0.2); BASOPHILS % (AUTO) 0.4 % (0.0-2.0); EOSINOPHILS # (AUTO) 0.4 K/uL (0.0-0.7); EOSINOPHILS % (AUTO) 2.4 % (0.0-6.0); HEMATOCRIT 30 % (33-45); HEMOGLOBIN 9.6 g/dL (11.5-14.8); LYMPHOCYTES # (AUTO) 1.4 K/uL (0.8-4.8); LYMPHOCYTES % (AUTO) 8.9 % (20.0-44.0); MEAN CORPUSCULAR HEMOGLOBIN 30 PG (26.0-33.0); MEAN CORPUSCULAR HGB CONC 32 g/dl (31.0-36.0); MEAN CORPUSCULAR VOLUME 94 fL (82-100); MONOCYTES # (AUTO) 1.7 K/uL (0.1-1.30); MONOCYTES % (AUTO) 10.7 % (2.0-12.0); NEUTROPHILS # (AUTO) 12.4 K/uL (1.8-8.9); NEUTROPHILS % (AUTO) 77.6 % (43.0-81.0); PLATELET COUNT (AUTO) 252 K/uL (150-450); RED CELL DISTRIBUTION WIDTH 16.1 % (11.5-15.0)
[2023-04-03] MEDS: FAMOTIDINE (20 MG) 20 MG TABLET PO SCH ×2 (07:30→08:38)
[2023-04-03] MEDS: LEVOTHYROXINE SODIUM 50 MCG TABLET PO SCH ×2 (07:30→08:37)
[2023-04-03 07:31] LABS: CALCIUM, SERUM 9.7 mg/dL (8.5-10.1); CARBON DIOXIDE 22 mmol/L (21-32); CHLORIDE 103 mmol/L (98-107); CREATININE 7.1 mg/dL (0.6-1.3); GLUCOSE 77 mg/dL (74-106); MAGNESIUM 2.3 mg/dL (1.8-2.4); PHOSPHORUS 5.7 mg/dL (2.5-4.9); POTASSIUM 4.8 mmol/L (3.5-5.1); SODIUM SERUM 139 mmol/L (136-145); UREA NITROGEN, BLOOD 55 mg/dL (7-18)
[2023-04-03] MEDS: BLOOD SUGAR DIAGNOSTIC 1 EACH STRIP IN SCH ×4 (07:50→21:52)
[2023-04-03 08:00] VITALS: BP 136/82; TEMP 98.2; O2SAT 100
[2023-04-03] MEDS: SEVELAMER CARBONATE 800 MG TABLET PO SCH ×4 (08:00→17:17)
[2023-04-03] MEDS: ASPIRIN 81 MG TAB.CHEW PO SCH ×2 (08:37→09:00)
[2023-04-03] MEDS: ALLOPURINOL 100 MG TABLET PO SCH ×2 (08:37→09:00)
[2023-04-03] MEDS: DOCUSATE SODIUM 100 MG CAPSULE PO SCH ×3 (08:37→17:16)
[2023-04-03] MEDS: ASCORBIC ACID 500 MG TABLET PO SCH ×2 (08:37→09:00)
[2023-04-03] MEDS: FERROUS SULFATE (325 MG) 325 MG/TAB TABLET PO SCH ×2 (08:37→09:00)
[2023-04-03] MEDS: CLOPIDOGREL BISULFATE 75 MG TABLET PO SCH ×2 (08:37→09:00)
[2023-04-03] MEDS: ISOSORBIDE DINITRATE (20MG) 20 MG TABLET PO SCH ×3 (08:38→21:00)
[2023-04-03] MEDS: GABAPENTIN 100 MG CAPSULE PO SCH ×3 (08:38→21:39)
[2023-04-03] MEDS: LEVETIRACETAM (250 MG) 250 MG TABLET PO SCH ×3 (08:38→21:39)
[2023-04-03] MEDS: METOPROLOL TARTRATE 50 MG TABLET PO SCH ×3 (08:39→17:00)
[2023-04-03] MEDS: hydrALAZINE HCL 25 MG TABLET PO SCH ×2 (08:39→09:00)
[2023-04-03] MEDS: MUPIROCIN OINT 2% 22 GM TUBE NS SCH ×2 (09:03→21:39)
[2023-04-03] MEDS: DAKINS QUARTER STRENGTH (0.125%) 480 ML BOTTLE TOP SCH (09:04)
[2023-04-03] MEDS: PROSOURCE / PROSTAT (PYXIS) 30 ML UDC PO SCH ×2 (12:21→17:00)
[2023-04-03 16:00] VITALS: BP 126/58; TEMP 98.3; O2SAT 99
[2023-04-03] MEDS: ATORVASTATIN 10 MG TABLET PO SCH (21:39)
[2023-04-03] MEDS: SENNOSIDES 8.6 MG TABLET PO SCH (21:39)
[2023-04-03] MEDS: INSULIN GLARGINE, 100 UNIT/ML CARTRIDGE SQ SCH (21:55)
[2023-04-04] VITALS: BP 140/67; TEMP 97.8; O2SAT 99
[2023-04-04] MEDS: FAMOTIDINE (20 MG) 20 MG TABLET PO SCH ×2 (07:30→07:35)
[2023-04-04] MEDS: SEVELAMER CARBONATE 800 MG TABLET PO SCH ×3 (07:34→12:43)
[2023-04-04] MEDS: LEVOTHYROXINE SODIUM 50 MCG TABLET PO SCH (07:35)
[2023-04-04] MEDS: BLOOD SUGAR DIAGNOSTIC 1 EACH STRIP IN SCH ×2 (07:53→12:02)
[2023-04-04] MEDS: INSULIN REGULAR, HUMAN 100 UNIT/ML 3 ML VIAL SQ PRN ×2 (07:56→12:02)
[2023-04-04 08:00] VITALS: BP 141/75; TEMP 97.9; O2SAT 100
[2023-04-04] MEDS: ASPIRIN 81 MG TAB.CHEW PO SCH (08:59)
[2023-04-04] MEDS: GABAPENTIN 100 MG CAPSULE PO SCH (09:00)
[2023-04-04] MEDS: LEVETIRACETAM (250 MG) 250 MG TABLET PO SCH (09:00)
[2023-04-04] MEDS: CLOPIDOGREL BISULFATE 75 MG TABLET PO SCH (09:00)
[2023-04-04] MEDS: FERROUS SULFATE (325 MG) 325 MG/TAB TABLET PO SCH (09:00)
[2023-04-04] MEDS: DOCUSATE SODIUM 100 MG CAPSULE PO SCH (09:00)
[2023-04-04] MEDS: ALLOPURINOL 100 MG TABLET PO SCH (09:00)
[2023-04-04] MEDS: ASCORBIC ACID 500 MG TABLET PO SCH (09:00)
[2023-04-04] MEDS: PROSOURCE / PROSTAT (PYXIS) 30 ML UDC PO SCH ×2 (09:00→12:39)
[2023-04-04] MEDS: METOPROLOL TARTRATE 50 MG TABLET PO SCH (09:00)
[2023-04-04] MEDS: ISOSORBIDE DINITRATE (20MG) 20 MG TABLET PO SCH (09:00)
[2023-04-04] MEDS: DAKINS QUARTER STRENGTH (0.125%) 480 ML BOTTLE TOP SCH (09:04)
[2023-04-04] MEDS: MUPIROCIN OINT 2% 22 GM TUBE NS SCH (09:04)
[2023-04-04] MEDS ORDERED: ALTEPLASE CATHFLO 2 MG/VIAL IV STA (13:52)
[2023-04-04 16:00] VITALS: BP 127/71; TEMP 98; O2SAT 100
== END 2023-04-04 17:29 | DRG 853 ==
LOC: ER 18:24 → TELE1 22:26 → MEDSG1 04-02 17:25
PROVIDERS: ADMIT Nurse Practitioner Acute Care; ATTEND Nurse Practitioner Family
PROC: 5A1D70Z Performance of Urinary Filtration, Intermittent, Less than 6 Hours Per Day (ICD-10-PCS; 2023-03-27)
PROC: 0JBP0ZZ Excision of Left Lower Leg Subcutaneous Tissue and Fascia, Open Approach (ICD-10-PCS; principal; 2023-03-28)
PROC: 05HD33Z Insertion of Infusion Device into Right Cephalic Vein, Percutaneous Approach (ICD-10-PCS; 2023-03-29)
DX: A40.8 Other streptococcal sepsis (principal); G93.41 Metabolic encephalopathy; I21.A1 Myocardial infarction type 2; N18.6 End stage renal disease; I63.9 Cerebral infarction, unspecified; L03.116 Cellulitis of left lower limb; I13.2 Hypertensive heart and chronic kidney disease with heart failure and with stage 5 chronic kidney disease, or end stage renal disease; N39.0 Urinary tract infection, site not specified; E87.1 Hypo-osmolality and hyponatremia; D68.59 Other primary thrombophilia; Z68.43 Body mass index [BMI] 50.0-59.9, adult; L02.416 Cutaneous abscess of left lower limb; I69.354 Hemiplegia and hemiparesis following cerebral infarction affecting left non-dominant side; Z99.2 Dependence on renal dialysis; K21.9 Gastro-esophageal reflux disease without esophagitis; Z91.148 Patient's other noncompliance with medication regimen for other reason; I07.1 Rheumatic tricuspid insufficiency; E11.22 Type 2 diabetes mellitus with diabetic chronic kidney disease; E03.9 Hypothyroidism, unspecified; Z79.899 Other long term (current) drug therapy; Z79.4 Long term (current) use of insulin; Z79.82 Long term (current) use of aspirin; E87.5 Hyperkalemia; R53.1 Weakness; E66.9 Obesity, unspecified; E11.51 Type 2 diabetes mellitus with diabetic peripheral angiopathy without gangrene; I50.9 Heart failure, unspecified; I70.201 Unspecified atherosclerosis of native arteries of extremities, right leg; R65.20 Severe sepsis without septic shock; D64.9 Anemia, unspecified; E83.52 Hypercalcemia; N25.0 Renal osteodystrophy; Z87.39 Personal history of other diseases of the musculoskeletal system and connective tissue; Z98.890 Other specified postprocedural states; I65.21 Occlusion and stenosis of right carotid artery; I67.2 Cerebral atherosclerosis; I65.02 Occlusion and stenosis of left vertebral artery
CPT/HCPCS: 36410; 36415; 70450-TC; 70496-TC; 70498-TC; 71045-TC; 73700-TC; 74018; 80048-TC; 80076-TC; 80170-TC; 80202-TC; 81001; 82962-TC; 83605-TC; 83735-TC; 83880; 84100-TC; 84484-TC; 85025-TC; 85652-TC; 85730-TC; 86140-TC; 86706; 87040-TC; 87081-TC; 87086-TC; 87340; 90935-TC; 92526; 92611-TC; 93971-TC; 97110-TC; 97530-TC; A4216; A4223; A6253; A6403; G0378; J1580; J1644; J1815; J1953; J2185; J2270; J2543; J2997; J3370; J7030; J7040; J7050; J7060; P9047; Q9967